=== PATIENT | male | born 1955 | race Caucasian/White ===

== ENCOUNTER → 2017-02-27 | Outpatient (CLI) | payer MEDICARE ==
--- NOTE | 2017-02-27 11:51 | US ---
LOWER EXTREMITY VENOUS INSUFFICIENCY SIDE PERFORMED: Bilateral 1) Color flow is present and patency is documented in the following vessels. Patient has history of bilateral DVT. Patient has some thickening of vessel haro, with some smaller caliber of vessels see n better on the left. EIV Common Femoral Vein Deep Femoral Vein Femoral Vein Popliteal Vein Proximal Calf Veins, not seen Greater Saph Vein Upper Small Saph Vein 2) There is venous reflux noted at the following venous levels: All vessels show reflux excluding G SV bilaterally. Reflux from external iliac veins to the lower visualized popliteal veins. IMPRESSION: 1. No evidence for acute DVT within the bilateral lower extremities imaged from the groin to the knee s. However, there is vessel wall thickening and some veins have small caliber suggesting sequela of c hronic DVT. 2. Venous reflux seen throughout both lower extremities.
--- NOTE | 2017-03-05 16:45 | P.ARTDOP ---
Arterial Doppler LOWER EXTREMITY ARTERIAL DOPPLER: DATE OF SERVICE: 02/27/2017 Reason for study: Right leg pain and right ankle ulceration. Doppler waveforms: Multiphasic bilaterally throughout. Pulse volume recording: []. Pressure gradients: None. Ankle-brachial indices: Greater than 1 bilaterally. Toe pressures: 158 on the right, 142 on the left Impression: Normal study.
== END | disposition home or self-care (01) ==
LOC: RADUSWWP 09:03
PROVIDERS: ATTEND Family Medicine
DX: I87.2 Venous insufficiency (chronic) (peripheral) (principal); I87.8 Other specified disorders of veins; E63.8 Other specified nutritional deficiencies
CPT/HCPCS: 93923; 93970

== ENCOUNTER → 2017-07-02 | Outpatient (CLI) | payer MEDICARE ==
--- NOTE | 2017-07-02 14:02 | US ---
EXAMINATION TYPE: US duplex aorta DATE OF EXAM: 07/02/2017 COMPARISON: US CLINICAL HISTORY: I71.4 Abdominal Aorta Aneurysm; patient stated has controlled HTN EXAM MEASUREMENTS: Abdominal Aorta: Proximal: 3.0cm A/P Mid: 3.5cm Transverse Distal: 3.0cm A/P Bifurcation: 1.1cm Right KARMA Transverse as better seen; 1.4cm Left KARMA Transverse Mild intimal thickening is noted mid and distal. IMPRESSION: 1. Fusiform prominence mid abdominal aorta. Transverse dimension is greater than AP dimension.
== END | disposition home or self-care (01) ==
LOC: RADUSWWP 10:22
PROVIDERS: ATTEND Family Medicine
DX: I71.4 Abdominal aortic aneurysm, without rupture (principal); Z88.8 Allergy status to other drugs, medicaments and biological substances; Z88.5 Allergy status to narcotic agent
CPT/HCPCS: 93979

== ENCOUNTER → 2018-07-08 | Outpatient (CLI) | payer MEDICARE ==
--- NOTE | 2018-07-08 08:28 | US ---
EXAMINATION TYPE: US duplex aorta DATE OF EXAM: 07/08/2018 COMPARISON: 07/02/2017 CLINICAL HISTORY: I71.4 Abdominal Aortic Aneurysm. AAA per patient. HTN- controlled with meds. Nons moker. High cholesterol. Limited visualization due to patient body habitus and overlying bowel gas EXAM MEASUREMENTS: Abdominal Aorta: Proximal: 2.6 x 3.2 cm Mid: 2.2 x 2.5 cm Distal: 1.9 x 2.2 cm Bifurcation: Right- 0.8 x 1.4 cm Left- 0.9 x 1.3 cm Between mid and distal Aorta, ectasia visualized = 2.9 x 3.7 x 4.3 cm IMPRESSION: Slight interval enlargement of the previously seen fusiform mid to distal abdominal aorti c aneurysm now measuring up to 3.7 cm in transverse dimension and previously measuring up to 3.5 cm i n transverse dimension on the exam of 07/02/2017.
== END | disposition home or self-care (01) ==
LOC: RADUSWWP 07:30
PROVIDERS: ATTEND Family Medicine
DX: I71.4 Abdominal aortic aneurysm, without rupture (principal)
CPT/HCPCS: 93979

== ENCOUNTER → 2018-11-03 | Outpatient (CLI) | payer MEDICARE ==
[2018-11-03 09:19] LABS: Basophils % (A) 1 %; Eosinophils # (A) 0.2 k/uL (0-0.7); Eosinophils % (A) 3 %; HCT 43.9 % (39.0-53.0); HGB 14.5 gm/dL (13.0-17.5); Lymphocytes # (A) 1.9 k/uL (1.0-4.8); Lymphocytes % (A) 33 %; MCH 32.5 pg (25.0-35.0); MCHC 33.1 g/dL (31.0-37.0); MCV 98.3 fL (80.0-100.0); Mean Platelet Volume 6.7; Monocytes # (A) 0.3 k/uL (0-1.0); Monocytes % (A) 5 %; Neutrophils # (A) 3.3 k/uL (1.3-7.7); Neutrophils % (A) 57 %; Platelet Count 240 k/uL (150-450); RBC 4.47 m/uL (4.30-5.90); RDW 13.9 % (11.5-15.5); WBC 5.9 k/uL (3.8-10.6)
[2018-11-03 15:58] LABS: ALT 21 U/L (10-49); AST 16 U/L (14-35); African American GFR (CKD) 117.2 (60.0-200.0); Albumin/Globulin Ratio 1.65 (1.60-3.17); Alkaline Phosphatase 62 U/L (41-126); C Reactive Protein <0.4 mg/dL (0.0-0.8); Carbon Dioxide 25.1 mmol/L (21.6-31.8); Chloride 105 mmol/L (96-109); Globulin 2.6 g/dL (1.6-3.3); Glucose 111 mg/dL (70-110); Potassium 4.4 mmol/L (3.5-5.5); Sodium 140 mmol/L (135-145); Total Bilirubin 0.5 mg/dL (0.3-1.2); Total Protein 6.9 g/dL (6.2-8.2)
== END | disposition home or self-care (01) ==
LOC: LABWHC1 08:54
PROVIDERS: ATTEND Family Medicine
DX: I87.311 Chronic venous hypertension (idiopathic) with ulcer of right lower extremity (principal); I87.2 Venous insufficiency (chronic) (peripheral)
CPT/HCPCS: 36415; 80053; 85025; 86140

== ENCOUNTER → 2018-11-05 | Outpatient (CLI) | payer MEDICARE ==
--- NOTE | 2018-11-05 15:11 | US ---
LOWER EXTREMITY VENOUS INSUFFICIENCY SIDE PERFORMED: LOWER EXTREMITY VENOUS INSUFFICIENCY Comparison: Prior ultrasound #30 2017 SIDE PERFORMED: Bilateral 1) Color flow is present and patency is documented in the following vessels. No DVT or SVT is noted . EIV Common Femoral Vein Deep Femoral Vein Femoral Vein Popliteal Vein Greater Saph Vein Upper Small Saph Vein 2) There is venous reflux noted at the following venous levels: Right- EIV, CFV, Deep fem vein, Fem oral vein, popliteal and small saph vein LEFT- EIV, CFV, Femoral vein, Popliteal vein IMPRESSION: No evidence for acute DVT in either lower extremity. Bilateral lower extremity venous ref lux redemonstrated as detailed above.
== END | disposition home or self-care (01) ==
LOC: RADUSWWP 13:30
PROVIDERS: ATTEND Family Medicine
DX: I82.433 Acute embolism and thrombosis of popliteal vein, bilateral (principal); I82.413 Acute embolism and thrombosis of femoral vein, bilateral; I87.2 Venous insufficiency (chronic) (peripheral)
CPT/HCPCS: 93922; 93970

== ENCOUNTER → 2020-01-26 | Outpatient (CLI) | payer MEDICARE ==
--- NOTE | 2020-01-27 09:56 | US ---
LOWER EXTREMITY VENOUS INSUFFICIENCY CLINICAL HISTORY: L97.897 NONPRESSURE CHRONIC ULCER OF OTHER PART OF. Chronic right leg ulcers, HTN, history of DVT right leg, patient on coumadin SIDE PERFORMED: bilateral 1) Color flow is present and patency is documented in the following vessels. No deep venous thrombo sis or superficial venous thrombosis is noted. EIV - assessed only on the left side Common Femoral Vein Deep Femoral Vein Femoral Vein Popliteal Vein Proximal Calf Veins Greater Saph Vein Upper Small Saph Vein 2) There is venous reflux noted at the following venous levels: right CFV, right femoral vein, righ t popliteal vein, left EIV, left GSV, left CFV, left femoral vein, left popliteal vein IMPRESSION: 1. Venous reflux of several veins of the bilateral lower extremities as detailed above. 2. No evidence of deep or superficial venous thrombosis bilaterally.
== END | disposition home or self-care (01) ==
LOC: RADUSWWP 13:44
PROVIDERS: ATTEND Family Medicine
DX: L97.815 Non-pressure chronic ulcer of other part of right lower leg with muscle involvement without evidence of necrosis (principal); I87.311 Chronic venous hypertension (idiopathic) with ulcer of right lower extremity; I87.2 Venous insufficiency (chronic) (peripheral); Z79.01 Long term (current) use of anticoagulants; I10 Essential (primary) hypertension; Z86.718 Personal history of other venous thrombosis and embolism
CPT/HCPCS: 93922; 93970

== ENCOUNTER → 2021-12-26 | Outpatient (CLI) | payer MEDICARE ==
--- NOTE | 2021-12-26 14:58 | US ---
LOWER EXTREMITY VENOUS INSUFFICIENCY CLINICAL HISTORY: I87.311 CHRONIC VENOUS HYPERTENSION WITH ULCER. Non-healing wound right lower leg s young 2004 SIDE PERFORMED: Bilateral Comparison: Prior study January 26, 2020 1) Color flow is present and patency is documented in the following vessels. No DVT or SVT is noted . Common Femoral Vein Deep Femoral Vein Femoral Vein Popliteal Vein Greater Saph Vein Upper Small Saph Vein 2) There is venous reflux noted at the following venous levels: Entire right leg, CFV, femoral vein , popliteal, and lesser saph vein Entire left leg, CFV, GSV, femoral vein, popliteal, and lesser saph vein IMPRESSION: No ultrasound evidence for acute deep or superficial venous thrombosis in either lower ex tremity. Reflux noted as detailed above more prominent in the right lower extremity on current study
--- NOTE | 2021-12-26 15:24 | US ---
EXAMINATION TYPE: US arterial LE single level DATE OF EXAM: 12/26/2021 2:41 PM CLINICAL HISTORY: I87.311 CHRONIC VENOUS HYPERTENSION WITH ULCER. Non-healing wound right lower leg s young 2004. History of hypertension. Doppler Waveforms: Right: Biphasic Left: Biphasic Ankle-Brachial Indices: Right: CNO Left: CNO Toe Brachial Indices: Right: 0.8 Left: 0.8 IMPRESSION: Normal TBI values bilaterally. No significant change from prior.
== END | disposition home or self-care (01) ==
LOC: RADUSWWP 13:37
PROVIDERS: ATTEND Family Medicine
DX: I87.311 Chronic venous hypertension (idiopathic) with ulcer of right lower extremity (principal); I87.2 Venous insufficiency (chronic) (peripheral); I87.323 Chronic venous hypertension (idiopathic) with inflammation of bilateral lower extremity
CPT/HCPCS: 93922; 93970

== ENCOUNTER → 2022-01-01 | Outpatient (CLI) | payer MEDICARE ==
[2022-01-02 01:47] LABS: Basophils # (A) 0.04 X 10*3/uL (0.00-0.10); Basophils % (A) 0.5 %; Eosinophils # (A) 0.22 X 10*3/uL (0.04-0.35); Eosinophils % (A) 2.9 %; HCT 36.8 % (39.6-50.0); HGB 11.5 g/dL (13.0-17.0); Immature Grans, Automated 0.3 %; Lymphocytes # (A) 2.32 X 10*3/uL (0.90-5.00); Lymphocytes % (A) 30.1 %; MCH 30.9 pg (27.0-32.0); MCHC 31.3 g/dL (32.0-37.0); MCV 98.9 fL (80.0-97.0); Monocytes # (A) 0.47 X 10*3/uL (0.20-1.00); Monocytes % (A) 6.1 %; NRBC Per 100 WBC 0 /100 WBCS (0.0-0.0); Neutrophils # (A) 4.63 X 10*3/uL (1.80-7.70); Neutrophils % (A) 60.1 %; Platelet Count 305 X 10*3/uL (140-440); RBC 3.72 X 10*6/uL (4.40-5.60); RDW 14.1 % (11.5-14.5)
[2022-01-02 02:08] LABS: Prealbumin 25.5 mg/dL (18.0-42.0)
[2022-01-02 02:38] LABS: ALT 10 U/L (10-49); AST 21 U/L (14-35); African American GFR (CKD) 122.8 (60.0-200.0); Albumin 3.9 g/dL (3.8-4.9); Albumin/Globulin Ratio 0.97 (1.60-3.17); Alkaline Phosphatase 67 U/L (41-126); BUN/Creat Ratio 25.08 Ratio (12.00-20.00); Blood Urea Nitrogen 14.9 mg/dL (9.0-27.0); Calcium 9.2 mg/dL (8.7-10.3); Carbon Dioxide 26.1 mmol/L (20.0-27.5); Chloride 101 mmol/L (96-109); Glucose 131 mg/dL (70-110); Potassium 4.8 mmol/L (3.5-5.5); Sodium 138 mmol/L (135-145); Total Bilirubin <0.15 mg/dL (0.30-1.20); Total Protein 7.9 g/dL (6.2-8.2)
[2022-01-02 03:35] LABS: Erythrocyte Sedimentation Rate 73 mm/Hr (0-20)
== END | disposition home or self-care (01) ==
LOC: LABWHC1 14:24
PROVIDERS: ATTEND Family Medicine
DX: I87.2 Venous insufficiency (chronic) (peripheral) (principal); I87.323 Chronic venous hypertension (idiopathic) with inflammation of bilateral lower extremity
CPT/HCPCS: 36415; 80053; 84134; 85025; 85652

== ENCOUNTER → 2022-10-15 | Outpatient (CLI) | payer MEDICARE ==
[2022-10-15 15:44] LABS: ALT 19 U/L (10-49); AST 15 U/L (14-35); Albumin 4.1 d/dL (3.8-4.9); Albumin/Globulin Ratio 1.21 Ratio (1.60-3.17); Alkaline Phosphatase 70 U/L (41-126); Blood Urea Nitrogen 12.3 mg/dL (9.0-27.0); Calcium 8.9 mg/dL (8.7-10.3); Carbon Dioxide 22.2 mmol/L (21.6-31.8); Chloride 106 mmol/L (96-109); Chol/HDL Ratio 4.43 Ratio; Globulin 3.4 d/dL (1.6-3.3); Glucose 99 mg/dL (70-110); LDL Cholesterol,Calculated 107.9 mg/dL (0.0-131.0); Sodium 141 mmol/L (135-145); Total Bilirubin 0.3 mg/dL (0.3-1.2); Total Protein 7.5 d/dL (6.2-8.2); VLDL Calculation 15.96 mg/dL (5.00-40.00)
[2022-10-15 16:15] LABS: Basophils # (A) 0.04 X 10*3/uL (0.00-0.10); Basophils % (A) 0.8 %; Eosinophils # (A) 0.07 X 10*3/uL (0.04-0.35); Eosinophils % (A) 1.3 %; HCT 41.3 % (39.6-50.0); HGB 13.6 d/dL (12.0-15.0); Lymphocytes # (A) 1.37 X 10*3/uL (0.90-5.00); Lymphocytes % (A) 26.4 %; MCH 32.2 pg (27.0-32.0); MCHC 32.9 d/dL (32.0-37.0); MCV 97.6 FL (80.0-97.0); Mean Platelet Volume 9.5 FL (9.5-12.2); Monocytes # (A) 0.39 X 10*3/uL (0.20-1.00); Monocytes % (A) 7.5 %; NRBC Per 100 WBC 0 X 10*3/uL (0.00-0.01); Neutrophils % (A) 63.6 %; Platelet Count 269 X 10*3/uL (140-440); RBC 4.23 X 10*6/uL (4.40-5.60); RDW 13.8 % (11.5-14.5); WBC 5.19 X 10*3/uL (4.50-10.00)
[2022-10-15 17:30] LABS: HIV 2 AB Non-Reactive (Non-Reactive); HIV AB P24 Non-Reactive (Non-Reactive); HIV P24 AG Non-Reactive (Non-Reactive)
== END | disposition home or self-care (01) ==
LOC: LABWHC1 10:09
PROVIDERS: ATTEND Family Medicine
DX: Z11.4 Encounter for screening for human immunodeficiency virus [HIV] (principal); Z12.5 Encounter for screening for malignant neoplasm of prostate; E78.5 Hyperlipidemia, unspecified
CPT/HCPCS: 36415; 80053; 80061; 83036; 84153; 84443; 85025; 87390

== ENCOUNTER → 2024-01-07 | Outpatient (CLI) | payer MEDICARE ==
--- NOTE | 2024-01-07 07:56 | US ---
EXAMINATION TYPE: US duplex aorta DATE OF EXAM: 01/07/2024 COMPARISON: US 2019 CLINICAL INDICATION: Male, 68 years old with history of I71.40 AAA WO RUPTURE; AAA in 2019 measured 3 .7 cm. Hx hypertension. TECHNIQUE: Multiple sonographic images of the abdominal aorta are obtained with grayscale and color D oppler imaging. with grayscale and color Doppler imaging FINDINGS: EXAM MEASUREMENTS: Abdominal Aorta: Proximal: Obscured Mid: Obscured Distal: 4.6 x 4.4 cm. Aneurysm seen. Bifurcation: Right Iliac: Not well seen Left Iliac: Not well seen TIME STUDY CLERK NOTES: Aneurysm seen distal aorta: 4.6 x 4.4 cm. IMPRESSION: Progression of abdominal aortic aneurysm. [facility], , 01/07/2024 7:54 AM
== END | disposition home or self-care (01) ==
LOC: RADUSWWP 07:00
PROVIDERS: ATTEND Family Medicine
CPT/HCPCS: 93979

== ENCOUNTER 2024-09-08 15:11 | Day surgery (SDC) | payer MEDICARE ==
[2024-09-07 13:46] VITALS: BMI 39.0
[~2024-09-08 15:11] MED LIST: Pre Op ABX Message 1 EACH MISC MISCELLANE ONE
[2024-09-08] MEDS: IV FLUID CONTINUATION 1,000 ML IV ONE ×2 (15:43→17:53)
[2024-09-08] MEDS: LACTATED RINGERS 1,000 ML BAG IV STA (15:56)
[2024-09-08] MEDS ORDERED: LIDOCAINE 1% INJ 10MG/ML (20 ML MDV) ONE (16:25)
[2024-09-08] MEDS ORDERED: KETAMINE HCL IN 0.9 % NACL 50 MG/5 ML SYRINGE ONE (16:25)
[2024-09-08] MEDS ORDERED: MIDAZOLAM 2 MG/2 ML VIAL ONE (16:25)
[2024-09-08] MEDS ORDERED: PROPOFOL 10 MG/ML 20 ML VIAL IV ONE (16:25)
[2024-09-08] MEDS ORDERED: fentaNYL (PF) 50 MCG/ML 2 ML AMP ONE (16:25)
[2024-09-08] MEDS ORDERED: GLYCOPYRROLATE 0.2 MG/ML 2 ML VIAL ONE (16:25)
[2024-09-08] MEDS: ceFAZolin 2 GM in DEXTROSE 5% IN WATER 50 ML IVPB PRN (16:28)
--- NOTE | 2024-09-08 16:31 | P.HPIHPCON ---
History of Present Illness H&P Date: 09/08/24 Chief Complaint: Venous leg ulcers, left leg CC: Venous Leg Ulcer, left leg Procedure: Debridement with skin graft substitute, left leg Consent for Procedure: I have explained the operation/procedure to the patient, including the risks, benefits, side effects, alternative therapies (including not receiving the proposed treatment or service), the likelihood of the patient achieving his/her goals, and potential recuperation problems for the procedure/sedation/analgesia, as well as any blood products, if indicated. I also explained to the patient the risks, benefits and side effects of the alternatives, as well as the risks related to not receiving the proposed procedure, care, treatment, or services. No changes noted to the H&P post patient's surgical clearance by his PCP. Procedure: Debridement of ulcers with graft application, left leg Past Medical History Past Medical History: Blood Disorder, COPD, Deep Vein Thrombosis (DVT), GERD/Reflux, Hypertension Additional Past Medical History / Comment(s): HX FACTOR V clotting disorder, recurrent venous leg ulcers, CHRONIC BACK PAIN. Current lt leg wound. History of Any Multi-Drug Resistant Organisms: MRSA Date of last positivie culture/infection: 02/02/2015 MDRO Source:: Right Leg Past Surgical History: Heart Catheterization Additional Past Surgical History / Comment(s): BLOOD CLOT REMOVED FROM RT LEG. COLONOSCOPY Past Anesthesia/Blood Transfusion Reactions: No Reported Reaction Smoking Status: Former smoker - Past Family History Mother Family Medical History: Cancer Brother(s) Family Medical History: Cancer Father Family Medical History: Cancer Medications and Allergies Home Medications Medication Instructions Recorded Confirmed Type atenoloL 100 mg PO QAM 01/19/15 09/08/24 History Warfarin [Coumadin] 5 mg PO MOWETH 04/27/15 09/08/24 History HYDROcodone/APAP 10-325MG [[place] 1 tab PO Q4H PRN 08/21/15 09/08/24 History 10-325] Ranitidine HCl [Zantac] 150 mg PO TID PRN 04/04/16 09/08/24 History Warfarin [Coumadin] 2.5 mg PO SUTUFRSA 11/06/16 09/08/24 History Advil(Unknown Dose) 1 dose PO DIRECTED PRN 09/07/24 09/08/24 History Vitamin D(Unknown Dose) 1 dose PO WEEKLY 09/07/24 09/08/24 History Allergies Allergy/AdvReac Type Severity Reaction Status Date / Time codeine AdvReac Nausea & Verified 09/08/24 15:28 Vomiting ibuprofen [From Motrin] AdvReac Nausea & Verified 09/08/24 15:28 Vomiting Surgical - Exam Vital Signs Temp Pulse Resp BP Pulse Ox 98.2 F 63 18 140/68 97 09/08/24 15:28 09/08/24 15:28 09/08/24 15:28 09/08/24 15:28 09/08/24 15:28
[2024-09-08] MEDS: LIDOCAINE 1% INJ 10MG/ML (20 ML MDV) SQ ONE ×2 (16:49)
[2024-09-08 17:34] VITALS: TEMP 97.8
[2024-09-08] MEDS: HYDROmorphone 1 MG/ML 1 ML SYRINGE IVP STA (17:35)
[2024-09-08 18:30] VITALS: BP 162/78; PULSE 60; RESP 16
--- NOTE | 2024-09-10 16:10 | P.PCN ---
Date of Procedure: 09/08/24 Preoperative Diagnosis: Venous stasis ulcers, left leg Postoperative Diagnosis: Venous stasis ulcers, left leg Procedure(s) Performed: Debridement of venous stasis ulcers with graft application, left leg Anesthesia: MAC, local (20cc of 1% lidocaine plain) Surgeon: Kinjal Mcclain Estimated Blood Loss (ml): 5 Pathology: none sent Condition: stable Disposition: PACU Indications for Procedure: Venous stasis ulcers to left leg with significant slough and biofilm present Operative Findings: Consistent with diagnosis; significant skin slough and biofilm noted to the wound beds of the ulcers to the left leg Description of Procedure: The patient was seen in the pre-op hold area. Consent was signed, correct surgical site was marked, and all questions and concerns related to the proposed procedure were discussed in detail with the patient and her significant other. The patient was then brought to the OR. The patient was transferred to the surgical bed for the procedure in supine position. The patient's left leg was then prepped with betadine to the knee and draped with sterile drapes to the level of the knee. Next, a time-out was taken to ensure proper laterality and procedure. Next, the ulcerated areas of the left leg were infiltrated with 20cc of 1% lidocaine plain in a field block fashion. After confirming anesthesia, attention was directed to the lateral aspect of the left leg. The wound beds of the venous stasis ulcers were debrided using a dermal curette to remove any non- viable and necrotic tissues, including slough, biofilm, necrotic and fibrotic tissues to underlying, bleeding healthy granular tissues. Next, the venous stasis ulcers to the medial aspect of the left leg were debrided using a dermal curette in a similar fashion. Then, attention was directed to the posterior aspect of the left leg, and the venous stasis ulcers were debrided with a dermal curette in similar fashion. No sinus tracts or tunneling was noted. The wound beds did not probe to bone. The area was then cleaned with a sterile saline solution soaked lap towel. The wound measurements were as follows: lateral left leg from superior to inferior, 4cm x 2.5cm x0.3cm, 5cm x 4.5cm x 0.3cm, 4cm x 2.5cm x 0.3cm, 4cm x 1.5cm x 0.3cm, and 9cm x 4cm x 0.3cm; posterior left leg 14cm x 8cm x 0.4cm; and medial left leg 2.5 cm x 1.5cm x 0.3cm, 9cm x 4 cm x 0.3cm. Then, attention was directed back to the venous stasis ulcers to the med ial and lateral aspects of the left leg. Three 4cm x 4.5cm fenestrated EpiFix grafts were cut to the appropriate size and placed directly to the wound beds of the wounds to the medial and lateral left leg. Next, attention was directed to the deepest wound noted to the posterior of the left leg. One Epicord 3cm x 5cm graft was soaked in saline for rehydration and then placed in the deepest portion of the venous stasis ulcer on the posterior aspect of the left leg. Next, two AmnioFix 7cm x 6cm grafts were cut to the appropriate size and placed directly on the wound beds to the remaining shallow wounds on the posterior aspect of the left leg. The total debrided wound area measured 236.25 square centimeters post-debridement. All counts were noted correct x2. The wound was then dressed with Adaptic dressing, 4x4 gauze, ABD pads, Kerlix rolls, and an SHAUN bandage. The patient was then transferred to PACU in stable condition. Plan - Discharge Summary Discharge Rx Participant: Yes New Discharge Prescriptions: No Action atenoloL 100 mg PO QAM Warfarin [Coumadin] 5 mg PO MOWETH HYDROcodone/APAP 10-325MG [[place] 10-325] 1 tab PO Q4H PRN PRN Reason: Pain Ranitidine HCl [Zantac] 150 mg PO TID PRN PRN Reason: acid reflux Warfarin [Coumadin] 2.5 mg PO SUTUFRSA Vitamin D(Unknown Dose) 1 dose PO WEEKLY Advil(Unknown Dose) 1 dose PO DIRECTED PRN PRN Reason: Pain Discharge Medication List atenoloL 100 mg PO QAM 01/19/15 [History] Warfarin [Coumadin] 5 mg PO MOWETH 04/27/15 [History] HYDROcodone/APAP 10-325MG [[place] 10-325] 1 tab PO Q4H PRN 08/21/15 [History] Ranitidine HCl [Zantac] 150 mg PO TID PRN 04/04/16 [History] Warfarin [Coumadin] 2.5 mg PO SUTUFRSA 11/06/16 [History] Advil(Unknown Dose) 1 dose PO DIRECTED PRN 09/07/24 [History] Vitamin D(Unknown Dose) 1 dose PO WEEKLY 09/07/24 [History] Follow up Appointment(s)/Referral(s): Kinjal Mcclain DPM [STAFF PHYSICIAN] - 09/10/24 10:00 am Patient Instructions/Handouts: *Surgery [facility] - (Anesthesia) Discharge Instructions Outpatient Surgery, Debridement (DC), Skin Grafting (DC) Activity/Diet/Wound Care/Special Instructions: Keep dressings clean, dry, and intact. Activity as tolerated. Take your previously prescribed pain medication as needed for pain. Elevate the left leg on 1-2 pillows to minimize pain and swelling. Discharge Disposition: HOME SELF-CARE
--- NOTE | 2024-09-10 16:24 | P.OP ---
Date of Procedure: 09/08/24 Preoperative Diagnosis: Venous stasis ulcers, left leg Postoperative Diagnosis: Venous stasis ulcers, left leg Procedure(s) Performed: Debridement of venous stasis ulcers with graft application, left leg Implants: EpiFix graft 4cm x 4.5cm x2; EpiCord graft 3cm x 5cm; AmnioFix graft 7cm x 6cm. Anesthesia: MAC, local (20cc of 1% lidocaine plain) Surgeon: Kinjal Mcclain Estimated Blood Loss (ml): 5 Pathology: none sent Condition: stable Disposition: PACU Indications for Procedure: Venous stasis ulcers to left leg with significant slough and biofilm present Operative Findings: Consistent with diagnosis; significant skin slough and biofilm noted to the wound beds of the ulcers to the left leg Description of Procedure: The patient was seen in the pre-op hold area. Consent was signed, correct surgi nica site was marked, and all questions and concerns related to the proposed procedure were discussed in detail with the patient and her significant other. The patient was then brought to the OR. The patient was transferred to the surgical bed for the procedure in supine position. The patient's left leg was then prepped with betadine to the knee and draped with sterile drapes to the level of the knee. Next, a time-out was taken to ensure proper laterality and procedure. Next, the ulcerated areas of the left leg were infiltrated with 20cc of 1% lidocaine plain in a field block fashion. After confirming anesthesia, attention was directed to the lateral aspect of the left leg. The wound beds of the venous stasis ulcers were debrided using a dermal curette to remove any non- viable and necrotic tissues, including slough, biofilm, necrotic and fibrotic tissues to underlying, bleeding healthy granular tissues. Next, the venous stasis ulcers to the medial aspect of the left leg were debrided using a dermal curette in a similar fashion. Then, attention was directed to the posterior aspect of the left leg, and the venous stasis ulcers were debrided with a dermal curette in similar fashion. No sinus tracts or tunneling was noted. The wound beds did not probe to bone. The area was then cleaned with a sterile saline solution soaked lap towel. The wound measurements were as follows: lateral left leg from superior to inferior, 4cm x 2.5cm x0.3cm, 5cm x 4.5cm x 0.3cm, 4cm x 2.5cm x 0.3cm, 4cm x 1.5cm x 0.3cm, and 9cm x 4cm x 0.3cm; posterior left leg 14cm x 8cm x 0.4cm; and medial left leg 2.5 cm x 1.5cm x 0.3cm, 9cm x 4 cm x 0.3cm. Then, attention was directed back to the venous stasis ulcers to the medial and lateral aspects of the left leg. Two 4cm x 4.5cm fenestrated EpiFix grafts were cut to the appropriate size and placed directly to the wound beds of the wounds to the medial and lateral left leg. Next, attention was directed to the deepest wound noted to the posterior of the left leg. One Epicord 3cm x 5cm graft was soaked in saline for rehydration and then placed in the deepest portion of the venous stasis ulcer on the posterior aspect of the left leg. Next, one AmnioFix 7cm x 6cm graft was cut to the appropriate sizes and placed directly on the wound beds to the remaining shallow wounds on the posterior aspect of the left leg. The total debrided wound area measured 236.25 square centimeters post-debridement. All counts were noted correct x2. The wound was then dressed with Adaptic dressing, 4x4 gauze, ABD pads, Kerlix rolls, and an SHAUN bandage. The patient was then transferred to PACU in stable condition.
== END 2024-09-08 18:44 | disposition home or self-care (01) ==
LOC: OR 15:11
PROVIDERS: ATTEND Student in an Organized Health Care Education/Training Program
DX: L97.822 Non-pressure chronic ulcer of other part of left lower leg with fat layer exposed (principal); I87.2 Venous insufficiency (chronic) (peripheral); D68.2 Hereditary deficiency of other clotting factors; J44.9 Chronic obstructive pulmonary disease, unspecified; I10 Essential (primary) hypertension; Z86.718 Personal history of other venous thrombosis and embolism; Z87.891 Personal history of nicotine dependence; Z79.01 Long term (current) use of anticoagulants; Z88.5 Allergy status to narcotic agent; Z88.6 Allergy status to analgesic agent
CPT/HCPCS: 15271; 15002; 15003; Q4186; Q4187; J2250; J0690; J2003; J3010; J1171; J2704; J1596

== ENCOUNTER 2024-10-08 14:53 | Inpatient (IN) | payer MEDICARE ==
[2024-10-08 16:23] LABS: Basophils # (A) 0.04 10*3/uL (0.00-0.10); Basophils % (A) 0.4 %; Eosinophils # (A) 0.10 10*3/uL (0.04-0.35); Eosinophils % (A) 1.1 %; HCT 39.2 % (39.6-50.0); HGB 13.3 g/dL (13.0-17.0); Lymphocytes # (A) 1.87 10*3/uL (0.90-5.00); Lymphocytes % (A) 19.7 %; MCH 30.6 pg (27.0-32.0); MCHC 33.9 g/dL (32.0-37.0); MCV 90.1 fL (80.0-97.0); Monocytes # (A) 0.52 10*3/uL (0.20-1.00); Monocytes % (A) 5.5 %; Neutrophils # (A) 6.94 10*3/uL (1.80-7.70); Neutrophils % (A) 73.0 %; Platelet Count 314 10*3/uL (140-440); RBC 4.35 10*6/uL (4.40-5.60); RDW 14.9 % (11.5-14.5); WBC 9.50 10*3/uL (4.50-10.00)
[2024-10-08 16:37] LABS: ALT 54 U/L (4-49); African American GFR (CKD) >90 (>60 ml/min/1.73 sqM); Albumin 4.3 g/dL (3.5-5.0); Anion Gap 16 mmol/L; Blood Urea Nitrogen 19 mg/dL (9-20); Calcium 9.3 mg/dL (8.4-10.2); Carbon Dioxide 14 mmol/L (22-30); Chloride 111 mmol/L (98-107); Glucose 119 mg/dL (74-99); Non-African American GFR(CKD) >90 (>60 ml/min/1.73 sqM); Sodium 141 mmol/L (137-145); Total Protein 8.4 g/dL (6.3-8.2)
[2024-10-08 16:41] LABS: AST 55 U/L (17-59); Alkaline Phosphatase 76 U/L (38-126); Potassium 3.9 mmol/L (3.5-5.1)
[2024-10-08] MEDS ORDERED: VANCOMYCIN IV PER PHARMACY 1 EACH MISC MISCELLANE PRN (16:43)
[2024-10-08] MEDS: HYDROmorphone 0.5 MG/0.5 ML SYRINGE IVP STA (17:02)
[2024-10-08] MEDS: VANCOMYCIN 1,750 MG in SODIUM CHLORIDE 0.9% 500 ML 500 ML IVPB ONE (18:08)
[2024-10-08] MEDS: HYDROcodone/APAP 10-325MG 1 EACH TAB PO PRN (18:29)
[2024-10-08] MEDS: SODIUM CHLORIDE 0.9% 1,000 ML IV SCH (18:29)
[2024-10-08] MEDS ORDERED: ACETAMINOPHEN TAB 325 MG TAB PO PRN (18:37)
[2024-10-08] MEDS ORDERED: NALOXONE 0.4 MG/ML 1 ML VIAL IV PRN (18:37)
--- NOTE | 2024-10-08 18:41 | ED ---
General Adult HPI - General Chief complaint: Wound/Laceration Stated complaint: L Leg issue Time Seen by Provider: 10/08/24 15:43 Source: patient, RN notes reviewed, old records reviewed Mode of arrival: ambulatory Limitations: no limitations - History of Present Illness Initial comments: 69-year-old male presenting with pain and swelling to the left leg. Patient was seen by his children's program coordinator today and sent to the emergency department for IV antibiotics. Patient has a history of nonhealing wounds to the left leg. Patient has been on oral antibiotics without improvement and patient states that his symptoms are worsening. No fever. - Related Data Home Medications Medication Instructions Recorded Confirmed atenoloL 100 mg PO QAM 01/19/15 09/08/24 Warfarin [Coumadin] 5 mg PO MOWETH 04/27/15 09/08/24 HYDROcodone/APAP 10-325MG [[place] 1 tab PO Q4H PRN 08/21/15 09/08/24 10-325] Ranitidine HCl [Zantac] 150 mg PO TID PRN 04/04/16 09/08/24 Warfarin [Coumadin] 2.5 mg PO SUTUFRSA 11/06/16 09/08/24 Advil(Unknown Dose) 1 dose PO DIRECTED PRN 09/07/24 09/08/24 Vitamin D(Unknown Dose) 1 dose PO WEEKLY 09/07/24 09/08/24 Allergies Allergy/AdvReac Type Severity Reaction Status Date / Time codeine AdvReac Nausea & Verified 10/08/24 15:03 Vomiting ibuprofen [From Motrin] AdvReac Nausea & Verified 10/08/24 15:03 Vomiting Review of Systems ROS Statement: Those systems with pertinent positive or pertinent negative responses have been documented in the HPI. ROS Other: All systems not noted in ROS Statement are negative. Past Medical History Past Medical History: Blood Disorder, COPD, Deep Vein Thrombosis (DVT), GERD/Reflux, Hypertension Additional Past Medical History / Comment(s): HX FACTOR V clotting disorder, recurrent venous leg ulcers, CHRONIC BACK PAIN. Current lt leg wound. History of Any Multi-Drug Resistant Organisms: MRSA Date of last positivie culture/infection: 02/02/2015 MDRO Source:: Right Leg Past Surgical History: Heart Catheterization Additional Past Surgical History / Comment(s): BLOOD CLOT REMOVED FROM RT LEG. COLONOSCOPY Past Anesthesia/Blood Transfusion Reactions: No Reported Reaction Past Psychological History: No Psychological Hx Reported Smoking Status: Former smoker Past Alcohol Use History: Rare Past Drug Use History: None Reported - Past Family History Mother Family Medical History: Cancer Brother(s) Family Medical History: Cancer Father Family Medical History: Cancer General Exam Limitations: no limitations General appearance: alert, in no apparent distress Head exam: Present: atraumatic, normocephalic Eye exam: Present: normal appearance, PERRL ENT exam: Present: normal exam Respiratory exam: Present: normal lung sounds bilaterally. Absent: respiratory distress, wheezes Cardiovascular Exam: Present: regular rate, normal rhythm GI/Abdominal exam: Present: soft. Absent: distended, tenderness Extremities exam: Present: other (Swelling, erythema and multiple areas of ulceration on the left leg.) Neurological exam: Present: alert, oriented X3 Course Vital Signs 10/08/24 10/08/24 10/08/24 14:59 16:54 18:20 Temperature 99.7 F H 97.8 F Pulse Rate 97 76 74 Respiratory 20 18 18 Rate Blood Pressure 180/76 159/83 178/91 O2 Sat by Pulse 95 98 98 Oximetry Medical Decision Making - Medical Decision Making Was pt. sent in by a medical professional or institution (AMANDA Ortega, FUSING MACHINE OPERATOR, urgent care, hospital, or fdc...) When possible be specific @ -No Did you speak to anyone other than the patient for history (EMS, parent, family, police, friend...)? What history was obtained from this source @ -No Did you review nursing and triage notes (agree or disagree)? Why? @ -I reviewed and agree with nursing and triage notes Were old charts reviewed (outside hosp., previous admission, EMS record, old EKG, old radiological studies, urgent care reports/EKG's, fdc records)? Report findings @ -No old charts were reviewed Differential Diagnosis cellulitis, diabetic ulcer, necrotizing fasciitis EKG interpreted by me (3pts min.). @ -As above X-rays interpreted by me (1pt min.). @ -None done CT interpreted by me (1pt min.). @ -None done U/S interpreted by me (1pt. min.). @ -None done What testing was considered but not performed or refused? (CT, X-rays, U/S, labs)? Why? @ -None What meds were considered but not given or refused? Why? @ -None Did you discuss the management of the patient with other professionals (professionals i.e. , PA, FUSING MACHINE OPERATOR, lab, RT, psych nurse, social media specialist, fur mixer operator, teacher, photographic intelligence officer, classification case manager)? Give summary Alvin covering for [facility] Was smoking cessation discussed for >3mins.? @ -No Was critical care preformed (if so, how long)? @ -No Were there social determinants of health that impacted care today? How? (Homelessness, low income, unemployed, alcoholism, drug addiction, transportation, low edu. Level, literacy, decrease access to med. care, fpc, rehab)? @ -No Was there de-escalation of care discussed even if they declined (Discuss DNR or withdrawal of care, Hospice)? DNR status @ -No What co-morbidities impacted this encounter? (DM, HTN, Smoking, COPD, CAD, Cancer, CVA, ARF, Chemo, Hep., AIDS, mental health diagnosis, sleep apnea, morbid obesity)? @ -None Was patient admitted / discharged? Hospital course, mention meds given and route, prescriptions, significant lab abnormalities, going to OR and other pertinent info. @ -[69-year-old male presenting with pain and swelling in the left leg, no improvement on oral antibiotics. Sent in by his children's program coordinator for IV antibiotics. Labs are obtained in the emergency department, normal white blood cell count, normal lactic acid. Patient started on IV antibiotics in the emergency department. Admitted to [facility]. Undiagnosed new problem with uncertain prognosis? @ -No Drug Therapy requiring intensive monitoring for toxicity (Heparin, Nitro, Insulin, Cardizem)? @ -No Were any procedures done? @ -No Diagnosis/symptom? @ -Cellulitis, nonhealing wound left leg Acute, or Chronic, or Acute on Chronic? @ -Acute on chronic Uncomplicated (without systemic symptoms) or Complicated (systemic symptoms)? @ -Default Side effects of treatment? @ -No Exacerbation, Progression, or Severe Exacerbation? @ -No Poses a threat to life or bodily function? How? (Chest pain, [place], NH, pneumonia, PE, COPD, DKA, ARF, appy, cholecystitis, CVA, Diverticulitis, Homicidal, Suicidal, threat to staff... and all critical care pts) @Yes, sepsis - Lab Data Result diagrams: 10/08/24 16:14 10/08/24 16:14 Lab Results 10/08/24 10/08/24 10/08/24 Range/Units 16:14 16:14 16:14 WBC 9.50 (4.50-10.00) 10*3/uL RBC 4.35 L (4.40-5.60) 10*6/uL Hgb 13.3 (13.0-17.0) g/dL Hct 39.2 L (39.6-50.0) % MCV 90.1 (80.0-97.0) fL MCH 30.6 (27.0-32.0) pg MCHC 33.9 (32.0-37.0) g/dL Plt Count 314 (140-440) 10*3/uL MPV 9.0 L (9.5-12.2) fL Immature Gran % (Auto) 0.3 % Neutrophils % 73.0 % Lymphocytes % 19.7 % Monocytes % 5.5 % Eosinophils % 1.1 % Basophils % 0.4 % Immature Gran # 0.03 (0.00-0.04) 10*3/uL Neutrophils # 6.94 (1.80-7.70) 10*3/uL Lymphocytes # 1.87 (0.90-5.00) 10*3/uL Monocytes # 0.52 (0.20-1.00) 10*3/uL Eosinophils # 0.10 (0.04-0.35) 10*3/uL Basophils # 0.04 (0.00-0.10) 10*3/uL Sodium 141 (137-145) mmol/L Potassium 3.9 (3.5-5.1) mmol/L Chloride 111 H (98-107) mmol/L Carbon Dioxide 14 L (22-30) mmol/L Anion Gap 16 mmol/L BUN 19 (9-20) mg/dL Creatinine 0.65 L (0.66-1.25) mg/dL Est GFR (CKD-EPI)AfAm >90 (>60 ml/min/1.73 sqM) Est GFR (CKD-EPI)NonAf >90 (>60 ml/min/1.73 sqM) Glucose 119 H (74-99) mg/dL Plasma Lactic Acid Ramesh 1.2 (0.7-2.0) mmol/L Calcium 9.3 (8.4-10.2) mg/dL Total Bilirubin 0.6 (0.2-1.3) mg/dL AST 55 (17-59) U/L ALT 54 H (4-49) U/L Alkaline Phosphatase 76 (38-126) U/L Total Protein 8.4 H (6.3-8.2) g/dL Albumin 4.3 (3.5-5.0) g/dL Disposition Clinical Impression: Venous insufficiency, Cellulitis Disposition: ADMITTED IP TO THIS HOSP Condition: Stable Is patient prescribed a controlled substance at d/c from ED?: No Referrals: Alvin Emerson MD [Primary Care Provider] - 1-2 days Time of Disposition: 18:41
[2024-10-08 19:07] LABS: INR 1.1 (<1.2); Prothrombin Time 11.6 sec (10.0-12.5)
[2024-10-08 19:10] LABS: Partial Thromboplastin Time 19.4 sec (22.0-30.0)
[2024-10-09] MEDS: HYDROmorphone 0.5 MG/0.5 ML SYRINGE IVP PRN (02:06)
[2024-10-09 04:45] LABS: African American GFR (CKD) >90 (>60 ml/min/1.73 sqM); Non-African American GFR(CKD) >90 (>60 ml/min/1.73 sqM)
[2024-10-09] MEDS: VANCOMYCIN 1,750 MG in SODIUM CHLORIDE 0.9% 500 ML 500 ML IVPB SCH (06:28)
--- NOTE | 2024-10-09 13:39 | US ---
EXAMINATION TYPE: US venous doppler duplex LE LT DATE OF EXAM: 10/09/2024 1:29 PM COMPARISON: US 2021 CLINICAL INDICATION: Male, 69 years old with history of swelling; Swelling. hx of DVT. Patient is on warfarin. TECHNIQUE: The lower extremity deep venous system is examined utilizing real time linear array sonog jono with graded compression, color doppler sonography, and spectral doppler. SIDE PERFORMED: Left FINDINGS: VESSELS IMAGED: Common Femoral Vein Deep Femoral Vein Greater Saphenous Vein * Femoral Vein Popliteal Vein Small Saphenous Vein * Proximal Calf Veins (* superficial vessels) Left Leg: Internal echoes seen in popliteal vein into the prox calf veins. The popliteal vein does not compress. Some partial compression seen at mid and distal popliteal vein. Lack of color flow/co ken defect noted at this level. PTVS and peroneal veins were not seen. IMPRESSION: Findings consistent with acute DVT in the popliteal vein in the proximal calf veins. [facility], Workstation: SENG 10/09/2024 1:37 PM
--- NOTE | 2024-10-09 14:27 | P.HPIM ---
History of Present Illness H&P Date: 10/09/24 History of present illness; patient is 69-year-old gentleman past medical history significant for DVT, chronic wounds of left lower extremity presented the ER because of worsening left lower extremity wound. Patient history of nonhealing wound of left leg, is following up outpatient by ethnic origins teacher. Patient stated that he was on oral antibiotics but his wounds were not healing. [employer] Supervisor evaluated him yesterday and recommended patient needs to come to the hospital for further evaluation and treatment. Patient denies any fever chills. There is no complaint of shortness of breath. Patient denies any palpitation. There is no complaint of orthopnea or PND. Denies any nausea, vomiting abdomi nal pain. Patient denies any complaint of dizziness. There is no complaint of headache. Because of left lower extremity wound, patient came to the ER Patient admitted to internal medicine service REVIEW OF SYSTEMS: CONSTITUTIONAL: No fever, no malaise, no fatigue. HEENT: No recent visual problems or hearing problems. Denied any sore throat. CARDIOVASCULAR: No chest pain, orthopnea, PND, no palpitations, no syncope. PULMONARY: No shortness of breath, no cough, no hemoptysis. GASTROINTESTINAL: No diarrhea, no nausea, no vomiting, no abdominal pain. NEUROLOGICAL: No headaches, no weakness, no numbness. HEMATOLOGICAL: Denies any bleeding or petechiae. GENITOURINARY: Denies any burning micturition, frequency, or urgency. MUSCULOSKELETAL/RHEUMATOLOGICAL: Denies any joint pain, swelling, or any muscle pain. ENDOCRINE: Denies any polyuria or polydipsia. The rest of the 14-point review of systems is negative. PHYSICAL EXAMINATION: GENERAL: The patient is alert and oriented x3, not in any acute distress. Well developed, well nourished. HEENT: Pupils are round and equally reacting to light. EOMI. No scleral icterus. No conjunctival pallor. Normocephalic, atraumatic. No pharyngeal erythema. No thyromegaly. CARDIOVASCULAR: S1 and S2 present. No murmurs, rubs, or gallops. PULMONARY: Chest is clear to auscultation, no wheezing or crackles. ABDOMEN: Soft, nontender, nondistended, normoactive bowel sounds. No palpable organomegaly. MUSCULOSKELETAL: Left lower extremity wound EXTREMITIES: No cyanosis, clubbing, or pedal edema. NEUROLOGICAL: Gross neurological examination did not reveal any focal deficits. SKIN: No rashes. Assessment and plan Left lower extremity cellulitis Chronic wounds of left lower extremity History of DVT Monitor vital signs Monitor CBC Monitor CMP Ordered CRP, ordered ESR Order Pro-Rich Order blood cultures Start IV Rocephin and vancomycin Ordered ultrasound lower extremity Consult ID Consult podiatry Labs and medication were reviewed.. Continue same treatment. Continue with symptomatic treatment. Resume home medication. Monitor labs and vitals. DVT and GI prophylaxis. Further recommendations as per clinical course of the patient Dictation was produced using [employer] dictation software. please excuse any grammatical, word or spelling errors. Past Medical History Past Medical History: Blood Disorder, COPD, Deep Vein Thrombosis (DVT), GERD/Reflux, Hypertension Additional Past Medical History / Comment(s): HX FACTOR V clotting disorder, recurrent venous leg ulcers, CHRONIC BACK PAIN. Current lt leg wound. History of Any Multi-Drug Resistant Organisms: MRSA Date of last positivie culture/infection: 02/02/2015 MDRO Source:: Right Leg Past Surgical History: Heart Catheterization Additional Past Surgical History / Comment(s): BLOOD CLOT REMOVED FROM RT LEG. COLONOSCOPY Past Anesthesia/Blood Transfusion Reactions: No Reported Reaction Past Psychological History: No Psychological Hx Reported Smoking Status: Former smoker Past Alcohol Use History: Rare Additional Past Alcohol Use History / Comment(s): started smoking at age 15, 2ppd, quit at age 17. Past Drug Use History: None Reported - Past Family History Mother Family Medical History: Cancer Brother(s) Family Medical History: Cancer Father Family Medical History: Cancer Medications and Allergies Home Medications Medication Instructions Recorded Confirmed Type atenoloL 100 mg PO DAILY 01/19/15 10/08/24 History HYDROcodone/APAP 10-325MG [[place] 1 tab PO 5XD 08/21/15 10/08/24 History 10-325] Ciprofloxacin HCl [Cipro] 500 mg PO Q12HR 10/08/24 10/08/24 History Ergocalciferol (Vitamin D2) 1,250 mcg PO MO 10/08/24 10/08/24 History [Drisdol (GEQ) 1,250 MCG (50,000 IU)] Gabapentin [Neurontin] 800 mg PO BID PRN 10/08/24 10/08/24 History Allergies Allergy/AdvReac Type Severity Reaction Status Date / Time codeine AdvReac Nausea & Verified 10/08/24 19:46 Vomiting ibuprofen [From Motrin] AdvReac Nausea & Verified 10/08/24 19:46 Vomiting Physical Exam Vitals: Vital Signs Temp Pulse Pulse Resp BP BP Pulse Ox 10/09/24 07:00 97.1 F L 76 10 L 10/09/24 01:14 110 H 20 10/09/24 00:01 98.1 F 73 20 155/87 97 10/08/24 23:22 110 H 20 10/08/24 23:18 97.7 F 110 H 20 178/103 97 10/08/24 22:40 98.1 F 70 18 173/76 97 10/08/24 18:20 97.8 F 74 18 178/91 98 10/08/24 16:54 76 18 159/83 98 10/08/24 14:59 99.7 F H 97 20 180/76 95 Intake and Output 10/08/24 10/09/24 10/09/24 22:59 06:59 14:59 Output Total 500 450 Balance -500 -450 Output: Urine 500 450 Other: Voiding Method Urinal Urinal Weight 116.573 kg Results CBC & Chem 7: 10/08/24 16:14 10/09/24 03:54 Labs: Abnormal Lab Results - Last 24 Hours (Table) 10/08/24 10/08/24 10/08/24 Range/Units 16:14 16:14 18:32 RBC 4.35 L (4.40-5.60) 10*6/uL Hct 39.2 L (39.6-50.0) % MPV 9.0 L (9.5-12.2) fL APTT 19.4 L (22.0-30.0) sec Chloride 111 H (98-107) mmol/L Carbon Dioxide 14 L (22-30) mmol/L Creatinine 0.65 L (0.66-1.25) mg/dL Glucose 119 H (74-99) mg/dL ALT 54 H (4-49) U/L Total Protein 8.4 H (6.3-8.2) g/dL 10/09/24 Range/Units 03:54 RBC (4.40-5.60) 10*6/uL Hct (39.6-50.0) % MPV (9.5-12.2) fL APTT (22.0-30.0) sec Chloride (98-107) mmol/L Carbon Dioxide (22-30) mmol/L Creatinine 0.59 L (0.66-1.25) mg/dL Glucose (74-99) mg/dL ALT (4-49) U/L Total Protein (6.3-8.2) g/dL Thrombosis Risk Factor Assmnt - Choose All That Apply Any of the Below Risk Factors Present?: Yes Each Factor Represents 1 point: Abnormal pulmonary function (COPD), Obesity (BMI >25) Other Risk Factors: Yes Each Risk Factor Represents 2 Points: Age 61-74 years Other congenital or acquired thrombophilia - If yes, enter type in comment: No Thrombosis Risk Factor Assessment Total Risk Factor Score: 4 Thrombosis Risk Factor Assessment Level: Moderate Risk
[2024-10-09] MEDS: PIPERACILLIN-TAZOBACTAM 3.375 GM in SODIUM CHLORIDE 0.9% 100 ML IVPB SCH (17:40)
[2024-10-09] MEDS: SODIUM HYPOCHLORITE 0.25% 480 ML BOT MISCELLANE SCH (17:41)
--- NOTE | 2024-10-09 18:45 | P.CONS ---
History of Present Illness - Reason for Consult Consult date: 10/09/24 Cellulitis to LLE; venous stasis ulcers to LLE - Chief Complaint Cellulitis to LLE; venous stasis ulcers to LLE - History of Present Illness Patient is a pleasant 69 year old male who is being followed by this provider outpatient for venous stasis ulcers to the left leg. Patient was seen by this provider in clinic on 10/08/2024 for venous stasis ulcers to the left leg. The patient complained that the leg wounds were slightly more painful and burning more than usual and appeared diaphoretic; he denied any NVFC, CP, SOB, of calf pain. Upon PE, the wounds were malodorous with surrounding erythema and significant biofilm present. Patient also had a new superficial thickness wound to the right medial malleolus with surrounding erythema and malodor. The patient was instructed to go to the [facility] ED to be admitted for IV antibiotics due to concerns of cellulitis. Patient went to the ED and was admitted for IV antibiotics. After admission, patient had venous Doppler of the LLE which showed a blood clot in the proximal popliteal vein. Patient currently denies any NVFC, SOB, CP, or calf tenderness. He relates mild pain to the LLE wounds, but states that the pain is well controlled with the current pain medication regimen. He has no other pedal complaints at t his time. Review of Systems Constitutional: Reports chronic pain (Chronic pain secondary to the venous stasis ulcers to LLE), Denies chills, Denies fever, Denies malaise, Denies sweats, Denies weakness Cardiovascular: Denies chest pain, Denies claudication, Denies palpitations, Denies shortness of breath Respiratory: Denies cough, Denies dyspnea, Denies pain, Denies wheezing Gastrointestinal: Denies abdominal pain, Denies constipation, Denies diarrhea, Denies heartburn, Denies nausea, Denies vomiting Musculoskeletal: Denies leg numbness/tingling, Denies muscle weakness, Denies myalgias Musculoskeletal: bilateral: as per HPI Integumentary: Reports as per HPI, Reports darkening of skin, Reports foot/leg ulcers (Venous stasis ulcers to left leg) Neurological: Denies balance difficulties, Denies change in mentation, Denies double vision, Denies head injury, Denies numbness, Denies tingling, Denies weakness, Denies visual changes Past Medical History Past Medical History: Blood Disorder, COPD, Deep Vein Thrombosis (DVT), GERD/Reflux, Hypertension Additional Past Medical History / Comment(s): HX FACTOR V clotting disorder, recurrent venous leg ulcers, CHRONIC BACK PAIN. Current lt leg wound. History of Any Multi-Drug Resistant Organisms: MRSA Year Discovered:: 02/02/2015 MDRO Source:: Right Leg Past Surgical History: Heart Catheterization Additional Past Surgical History / Comment(s): BLOOD CLOT REMOVED FROM RT LEG. COLONOSCOPY Past Anesthesia/Blood Transfusion Reactions: No Reported Reaction Past Psychological History: No Psychological Hx Reported Smoking Status: Former smoker Past Alcohol Use History: Rare Additional Past Alcohol Use History / Comment(s): started smoking at age 15, 2ppd, quit at age 17. Past Drug Use History: None Reported - Past Family History Mother Family Medical History: Cancer Brother(s) Family Medical History: Cancer Father Family Medical History: Cancer Medications and Allergies Home Medications Medication Instructions Recorded Confirmed Type atenoloL 100 mg PO DAILY 01/19/15 10/08/24 History HYDROcodone/APAP 10-325MG [[place] 1 tab PO 5XD 08/21/15 10/08/24 History 10-325] Ciprofloxacin HCl [Cipro] 500 mg PO Q12HR 10/08/24 10/08/24 History Ergocalciferol (Vitamin D2) 1,250 mcg PO MO 10/08/24 10/08/24 History [Drisdol (GEQ) 1,250 MCG (50,000 IU)] Gabapentin [Neurontin] 800 mg PO BID PRN 10/08/24 10/08/24 History Allergies Allergy/AdvReac Type Severity Reaction Status Date / Time codeine AdvReac Nausea & Verified 10/08/24 19:46 Vomiting ibuprofen [From Motrin] AdvReac Nausea & Verified 10/08/24 19:46 Vomiting Physical Exam Vitals: Vital Signs Temp Pulse Pulse Resp BP BP Pulse Ox 10/09/24 07:00 97.1 F L 76 10 L 10/09/24 01:14 110 H 20 10/09/24 00:01 98.1 F 73 20 155/87 97 10/08/24 23:22 110 H 20 10/08/24 23:18 97.7 F 110 H 20 178/103 97 10/08/24 22:40 98.1 F 70 18 173/76 97 10/08/24 18:20 97.8 F 74 18 178/91 98 10/08/24 16:54 76 18 159/83 98 Intake and Output 10/09/24 10/09/24 10/09/24 06:59 14:59 22:59 Output Total 500 450 Balance -500 -450 Output: Urine 500 450 Other: Voiding Method Urinal Urinal # Voids 1 Weight 116.573 kg - Constitutional Well nourished and well developed obese male. Alert and oriented x3. Not in acute distress. Appropriate mood and affect. Pleasant demeanor. General appearance: cooperative, no acute distress, obese - EENT Eyes: PERRLA - Respiratory Normal unlabored breathing rate and pattern. Symmetrical chest expansion. No wheezing. - Cardiovascular DP and PT pedal pulses diminished to BLE; DP pulses weakly biphasic via handheld Doppler US, LLE PT is weakly triphasic; RLE PT pulse not taken due to presence of open wound to the area. CFT is <3 seconds to all 10 toes. No hair growth noted to the level of the digits bilaterally. Skin temperature is warm to warm from the tibial tuberosity to the level of the toes bilaterally. Rhythm: regular (DP and PT pedal pulses diminished to BLE; DP pulses weakly biphasic via handheld Doppler US, LLE PT is weakly triphasic) - Gastrointestinal General gastrointestinal: soft, no tenderness - Integumentary Full thickness venous stasis ulcers down to level of subcutis and fat layer noted to the lateral left ankle, posterior left leg, and lateral left leg. Wounds measure approx. 9cm x 4cm x 0.3cm, 4cm x 2cm .0.3cm (medial wound); 14cm x 8cm x 0.3cm (posterior wound); and 3 posterior LE wounds measuring 4cm x 3cm x 0.3cm, 4.5cm x 5cm x 0.3cm, and 8cm x 4cm x 0.3cm. Wound bed to all three wounds is fibrogranular with extensive slough and biofilm noted; there is a malodor to the wounds. New superficial thickness wound noted to the right medial ankle, measuring approx. 4cm x2cm x0.2cm; wound bed is fibrogranular with extensive slough and biofilm. Wound edges do not undermine and no sinus tracts are noted. Wounds do not probe deep. Mild to moderate straw-colored yellow-green serous drainage noted. Periwound to all wounds is edematous and erythematous; surrounding skin to BLE is brawny and edematous, consistent with chronic venous stasis dermatitis and hemosiderin deposition. Integumentary: no cellulitis, ulcer - Neurologic Epicritic and protopathic sensations are grossly intact to the level of the digits bilaterally. Light touch sensation is grossly intact to the level of the digits bilaterally. - Musculoskeletal Muscle strength is 5/5 and symmetric for all muscle groups crossing the ankle joint bilaterally. Foot and ankle are in grossly rectus alignment bilaterally. No pain with active, passive, or resistive ROM to bilateral foot and ankle. Pain with palpation of the open wounds to LLE. Patient is ambulating with use of ca ne. Musculoskeletal: no generalized weakness, strength equal bilaterally - Psychiatric Psychiatric: A&O x's 3, appropriate affect, intact judgment & insight Results CBC & Chem 7: 10/08/24 16:14 10/09/24 03:54 Labs: Abnormal Lab Results - Last 24 Hours (Table) 10/08/24 10/08/24 10/08/24 Range/Units 16:14 16:14 18:32 RBC 4.35 L (4.40-5.60) 10*6/uL Hct 39.2 L (39.6-50.0) % MPV 9.0 L (9.5-12.2) fL APTT 19.4 L (22.0-30.0) sec Chloride 111 H (98-107) mmol/L Carbon Dioxide 14 L (22-30) mmol/L Creatinine 0.65 L (0.66-1.25) mg/dL Glucose 119 H (74-99) mg/dL ALT 54 H (4-49) U/L C-Reactive Protein (<1.0) mg/dL Total Protein 8.4 H (6.3-8.2) g/dL 10/09/24 10/09/24 Range/Units 03:54 03:54 RBC (4.40-5.60) 10*6/uL Hct (39.6-50.0) % MPV (9.5-12.2) fL APTT (22.0-30.0) sec Chloride (98-107) mmol/L Carbon Dioxide (22-30) mmol/L Creatinine 0.59 L (0.66-1.25) mg/dL Glucose (74-99) mg/dL ALT (4-49) U/L C-Reactive Protein 3.6 H (<1.0) mg/dL Total Protein (6.3-8.2) g/dL Venous US: report reviewed (DVT noted to the LLE calf to proximal popliteal vein), image reviewed Assessment and Plan (1) Cellulitis Narrative/Plan: Reviewed labs; WBC count is 9.5. Patient is currently on IV Zosyn and received prior doses of IV vancomycin and ceftriaxone. Infectious diseases is following. Continue with abx per Dr. Parker's (Infectious Diseases) recommendations. Leg wounds were swabbed for A&A cultures; A&A cultures and sensitivity are pending. Patient's cellulitis to BLE appears improved compared to his outpatient visit yesterday. Current Visit: Yes Status: Acute Code(s): L03.90 - CELLULITIS, UNSPECIFIED SNOMED Code(s): 861591972 (2) Venous insufficiency Narrative/Plan: Patient has SHAUN bandaged to BLE for compression. Continue with SHAUN bandage compression therapy for bilateral venous insufficiency. Current Visit: Yes Status: Acute Code(s): I87.2 - VENOUS INSUFFICIENCY (CHRONIC) (PERIPHERAL) SNOMED Code(s): 48210671 (3) Venous stasis ulcer Narrative/Plan: Dressings were changed at bedside today. Wounds were swabbed for A&A cultures; results pending. Wounds to BLE were debrided with gauze soaked with quarter strength Dakin's solution. Applied Opticell AG to all wounds, and dressed with gauze, abdominal pads, Kerlix rolls, and SHAUN bandages. Patient tolerated the debridement and dressing change well. Nursing staff to continue with daily dressing changes consisting of gently debriding wounds with Dakin's solution- soaked gauze, and then applying Opticell AG to the wound beds, covered with gauze pads, abdominal pads, Kerlix rolls, and SHAUN bandages. Patient is to follow up with this provider early next week after discharge for continued wound care. Patient already has home health nurse who changes his dressings on Wednesdays and Fridays. Pain to LLE wounds is well controlled with current pain medication regimen; continue with current pain medications. Current Visit: No Status: Acute Code(s): I83.009 - VARICOSE VEINS OF UNSP LOWER EXTREMITY W ULCER OF UNSP SITE SNOMED Code(s): 83377058 (4) Chronic deep vein thrombosis (DVT) Narrative/Plan: Reviewed LLE doppler US; results show findings consistent with acute DVT in the popliteal veins of the proximal calf veins. Recommend anticoagulant therapy per hospitalist recommendations. Current Visit: No Status: Acute Code(s): I82.509 - CHRONIC EMBOLISM AND THOMBOS UNSP DEEP VN UNSP LOW EXTRM SNOMED Code(s): 89592980815993263 Plan: Discussed plan with patient in detail. Patient will follow up within 1 week of discharge. He verbalized understanding and agreement with the treatment plan as stated. All of his questions were answered to his satisfaction. Dr. Amado, thank you for the consult. Time with Patient: Greater than 30
[2024-10-09] MEDS ORDERED: HEPARIN SODIUM 1,000 UN/ML (10ML VL) IV PRN (19:15)
[2024-10-09] MEDS: HEPARIN SOD,PORK IN 0.45% NACL 25,000 UNIT in 0.45% NACL 1 250ML.BAG IV SCH (19:53)
[2024-10-09] MEDS: HEPARIN SODIUM 1,000 UN/ML (10ML VL) IV ONE (19:53)
--- NOTE | 2024-10-09 23:51 | P.CONS ---
History of Present Illness - Reason for Consult Consult date: 10/09/24 Left foot cellulitis Requesting physician: Renan Amado - Chief Complaint Left leg pain swelling redness x days - History of Present Illness Patient is a 69-year-old male with a past medical history significant for COPD, Deep Vein Thrombosis (DVT), GERD/Reflux, Hypertension in this patient also history of left lower extremity venous stasis ulcer for the patient has been following with his chro patient recently did have a debridement of his wound done on 07/28/2024 that did grew Pseudomonas aeruginosa with a previous culture on 06/05/2023 was positive for Enterobacter and Pseudomonas aeruginosa patient has been sent to the ER as the patient was noticed to have worsening of his wound with some foul-smelling and need for IV antibiotic therapy patient denies having any high-grade fever or any chills the patient denies having any chest pain shortness of breath or cough no nausea vomiting no abdominal pain has been complaining of some dull aching pain to the left lower extremity moderate redness without radiation with associated swelling redness and foul-smelling drainage on presentation to the hospital the patient was afebrile he was mildly tachycardic but not hypotensive or hypoxic patient did have a white count of 9.50 creatinine 0.65 electrolyte has been normal liver enzymes are normal patient did have blood cultures obtained as well as local wound culture he was started on Rocephin and vancomycin infectious disease was consulted for further management of antibiotic therapy Review of Systems Positive point and negatives has been mentioned in the HPI, complete review of systems was performed and all other systems are negative Past Medical History Past Medical History: Blood Disorder, COPD, Deep Vein Thrombosis (DVT), GERD/Reflux, Hypertension Additional Past Medical History / Comment(s): HX FACTOR V clotting disorder, recurrent venous leg ulcers, CHRONIC BACK PAIN. Current lt leg wound. History of Any Multi-Drug Resistant Organisms: MRSA Year Discovered:: 02/02/2015 MDRO Source:: Right Leg Past Surgical History: Heart Catheterization Additional Past Surgical History / Comment(s): BLOOD CLOT REMOVED FROM RT LEG. COLONOSCOPY Past Anesthesia/Blood Transfusion Reactions: No Reported Reaction Past Psychological History: No Psychological Hx Reported Smoking Status: Former smoker Past Alcohol Use History: Rare Additional Past Alcohol Use History / Comment(s): started smoking at age 15, 2ppd, quit at age 17. Past Drug Use History: None Reported - Past Family History Mother Family Medical History: Cancer Brother(s) Family Medical History: Cancer Father Family Medical History: Cancer Medications and Allergies Home Medications Medication Instructions Recorded Confirmed Type atenoloL 100 mg PO DAILY 01/19/15 10/08/24 History HYDROcodone/APAP 10-325MG [[place] 1 tab PO 5XD 08/21/15 10/08/24 History 10-325] Ciprofloxacin HCl [Cipro] 500 mg PO Q12HR 10/08/24 10/08/24 History Ergocalciferol (Vitamin D2) 1,250 mcg PO MO 10/08/24 10/08/24 History [Drisdol (GEQ) 1,250 MCG (50,000 IU)] Gabapentin [Neurontin] 800 mg PO BID PRN 10/08/24 10/08/24 History Allergies Allergy/AdvReac Type Severity Reaction Status Date / Time codeine AdvReac Nausea & Verified 10/08/24 19:46 Vomiting ibuprofen [From Motrin] AdvReac Nausea & Verified 10/08/24 19:46 Vomiting Physical Exam Vitals: Vital Signs Temp Pulse Pulse Resp BP BP Pulse Ox 10/09/24 07:00 97.1 F L 76 10 L 10/09/24 01:14 110 H 20 10/09/24 00:01 98.1 F 73 20 155/87 97 10/08/24 23:22 110 H 20 10/08/24 23:18 97.7 F 110 H 20 178/103 97 10/08/24 22:40 98.1 F 70 18 173/76 97 10/08/24 18:20 97.8 F 74 18 178/91 98 10/08/24 16:54 76 18 159/83 98 10/08/24 14:59 99.7 F H 97 20 180/76 95 Intake and Output 10/08/24 10/09/24 10/09/24 22:59 06:59 14:59 Output Total 500 450 Balance -500 -450 Output: Urine 500 450 Other: Voiding Method Urinal Urinal Weight 116.573 kg GENERAL DESCRIPTION: Elderly male lying in bed, no distress. No tachypnea or accessory muscle of respiration use. HEENT: Shows Pallor , no scleral icterus. Oral mucous membrane is dry. NECK: Trachea central, no thyromegaly. LUNGS: Unlabored breathing. Clear to auscultation anteriorly. No wheeze or c rackle. HEART: S1, S2, regular rate and rhythm. No loud murmur ABDOMEN: Soft, no tenderness , guarding or rigidity, no organomegaly EXTREMITIES: Left lower extremity with a venous stasis ulcer with some slough patient foul-smelling drainage SKIN: No rash, no masses palpable. NEUROLOGICAL: The patient is awake, alert, oriented x3, mood and affect normal. Results CBC & Chem 7: 10/08/24 16:14 10/09/24 03:54 Labs: Abnormal Lab Results - Last 24 Hours (Table) 10/08/24 10/08/24 10/08/24 Range/Units 16:14 16:14 18:32 RBC 4.35 L (4.40-5.60) 10*6/uL Hct 39.2 L (39.6-50.0) % MPV 9.0 L (9.5-12.2) fL APTT 19.4 L (22.0-30.0) sec Chloride 111 H (98-107) mmol/L Carbon Dioxide 14 L (22-30) mmol/L Creatinine 0.65 L (0.66-1.25) mg/dL Glucose 119 H (74-99) mg/dL ALT 54 H (4-49) U/L C-Reactive Protein (<1.0) mg/dL Total Protein 8.4 H (6.3-8.2) g/dL 10/09/24 10/09/24 Range/Units 03:54 03:54 RBC (4.40-5.60) 10*6/uL Hct (39.6-50.0) % MPV (9.5-12.2) fL APTT (22.0-30.0) sec Chloride (98-107) mmol/L Carbon Dioxide (22-30) mmol/L Creatinine 0.59 L (0.66-1.25) mg/dL Glucose (74-99) mg/dL ALT (4-49) U/L C-Reactive Protein 3.6 H (<1.0) mg/dL Total Protein (6.3-8.2) g/dL Assessment and Plan (1) Leg ulcer, left Current Visit: Yes Status: Acute Code(s): L97.929 - NON-PRS CHRONIC ULC UNSP PRT OF L LOW LEG W UNSP SEVERITY SNOMED Code(s): 67872535 (2) Left leg cellulitis Current Visit: Yes Status: Acute Code(s): L03.116 - CELLULITIS OF LEFT LOWER LIMB SNOMED Code(s): 01268192872601358 Plan: 1patient presented to hospital with worsening wound to the left lower extremity concerning for wound infection and cellulitis with the last local culture positive for Pseudomonas aeruginosa more likely the same pathogen 2-discontinue Rocephin and vancomycin 3-we will start the patient on Zosyn 3.375 g every 8 hours 4-care discussed with the chro he will be changing the dressing and obtain deep culture Zosyn before that we will decide ultimate discharge antibiotics Question concern answered We will follow on clinical condition and cultures to further adjust medication if needed Thank you for this consultation we will follow the patient along with you Dictation was produced using [employer] dictation software. please excuse any grammatical, word or spelling errors. Time with Patient: Greater than 30
[2024-10-10 08:08] LABS: Basophils # (A) 0.06 10*3/uL (0.00-0.10); Basophils % (A) 0.9 %; Eosinophils # (A) 0.46 10*3/uL (0.04-0.35); Eosinophils % (A) 7.2 %; HCT 34.6 % (39.6-50.0); HGB 11.7 g/dL (13.0-17.0); Lymphocytes # (A) 2.39 10*3/uL (0.90-5.00); Lymphocytes % (A) 37.6 %; MCH 31.0 pg (27.0-32.0); MCHC 33.8 g/dL (32.0-37.0); MCV 91.5 fL (80.0-97.0); Monocytes # (A) 0.46 10*3/uL (0.20-1.00); Monocytes % (A) 7.2 %; Neutrophils # (A) 2.97 10*3/uL (1.80-7.70); Neutrophils % (A) 46.8 %; Platelet Count 244 10*3/uL (140-440); RBC 3.78 10*6/uL (4.40-5.60); RDW 14.8 % (11.5-14.5); WBC 6.36 10*3/uL (4.50-10.00)
[2024-10-10 09:10] LABS: ALT 29 U/L (4-49); AST 42 U/L (17-59); African American GFR (CKD) >90 (>60 ml/min/1.73 sqM); Albumin 3.6 g/dL (3.5-5.0); Albumin/Globulin Ratio 1.0; Alkaline Phosphatase 64 U/L (38-126); Anion Gap 10 mmol/L; Blood Urea Nitrogen 13 mg/dL (9-20); Calcium 8.4 mg/dL (8.4-10.2); Carbon Dioxide 21 mmol/L (22-30); Chloride 109 mmol/L (98-107); Globulin 3.5 g/dL; Glucose 99 mg/dL (74-99); Non-African American GFR(CKD) >90 (>60 ml/min/1.73 sqM); Potassium 3.5 mmol/L (3.5-5.1); Sodium 140 mmol/L (137-145); Total Protein 7.1 g/dL (6.3-8.2)
--- NOTE | 2024-10-10 15:18 | P.PN ---
Subjective Progress Note Date: 10/10/24 patient is 69-year-old gentleman past medical history significant for DVT, chronic wounds of left lower extremity presented the ER because of worsening left lower extremity wound. Patient history of nonhealing wound of left leg, is following up outpatient by lens coating technician. Patient stated that he was on oral antibiotics but his wounds were not healing. Shear Setter evaluated him yesterday and recommended patient needs to come to the hospital for further evaluation and treatment. Patient denies any fever chills. There is no complaint of shortness of breath. Patient denies any palpitation. There is no complaint of orthopnea or PND. Denies any nausea, vomiting abdominal pain. Patient denies any com plaint of dizziness. There is no complaint of headache. Because of left lower extremity wound, patient came to the ER Patient admitted to internal medicine service 10/10. Patient seen and examined. States swelling of left lower extremity has improved. REVIEW OF SYSTEMS: CONSTITUTIONAL: No fever, no malaise,. CARDIOVASCULAR: No chest pain, no palpitations, no syncope. PULMONARY: No shortness of breath, no cough, GASTROINTESTINAL: No diarrhea, no nausea, no vomiting, no abdominal pain. NEUROLOGICAL: No headaches, no weakness, PHYSICAL EXAMINATION: GENERAL: The patient is alert and oriented x3, not in any acute distress. Well developed, well nourished. HEENT: Pupils are round and equally reacting to light. EOMI. No scleral icterus. No conjunctival pallor. Normocephalic, atraumatic. No pharyngeal erythema. No thyromegaly. CARDIOVASCULAR: S1 and S2 present. No murmurs, rubs, or gallops. PULMONARY: Chest is clear to auscultation, no wheezing or crackles. ABDOMEN: Soft, nontender, nondistended, normoactive bowel sounds. No palpable organomegaly. MUSCULOSKELETAL: No joint swelling or deformity. EXTREMITIES: Left lower extremity wound seen NEUROLOGICAL: Gross neurological examination did not reveal any focal deficits. SKIN: No rashes. Assessment and plan Left lower extremity cellulitis Acute DVT left lower extremity Chronic wounds of left lower extremity History of DVT Monitor vital signs Monitor CBC Monitor CMP Follow-up blood cultures Ultrasound lower extremity did not show DVT in the popliteal vein Currently on pharmacy to dose heparin Continue IV Zosyn Podiatry following ID following Labs and medication were reviewed.. Continue same treatment. Continue with symptomatic treatment. Resume home medication. Monitor labs and vitals. DVT and GI prophylaxis. Further recommendations as per clinical course of the patient Dictation was produced using [employer] dictation software. please excuse any grammatical, word or spelling errors. Objective - Vital Signs Vital signs: Vital Signs Temp 97.6 F 10/10/24 07:25 Pulse 69 10/10/24 07:25 Resp 17 10/10/24 07:25 BP 162/69 10/10/24 07:25 Pulse Ox 99 10/10/24 07:25 FiO2 Intake & Output 10/09/24 10/10/24 10/10/24 18:59 06:59 18:59 Intake Total 472 221.021 312.391 Output Total 450 500 Balance 22 -278.979 312.391 Intake: Intake, IV Titration 221.021 72.391 Amount Heparin Sod,Pork in 0.45% 221.021 72.391 NaCl 25,000 unit In 0.45 % NaCl 1 250ml.bag @ 18 UNITS/KG/HR 20.983 mls/hr IV .[id number] [facility] Rx#: [id number] Oral 472 240 Output: Urine 450 500 Other: Voiding Method Urinal Urinal # Voids 1 2 - Labs CBC & Chem 7: 10/10/24 07:38 10/10/24 07:38 Labs: Abnormal Lab Results - Last 24 Hours (Table) 10/09/24 10/10/24 10/10/24 Range/Units 03:54 02:13 07:38 RBC 3.78 L (4.40-5.60) 10*6/uL Hgb 11.7 L (13.0-17.0) g/dL Hct 34.6 L (39.6-50.0) % RDW 14.8 H (11.5-14.5) % MPV 9.1 L (9.5-12.2) fL Eosinophils # 0.46 H (0.04-0.35) 10*3/uL APTT 56.3 H (22.0-30.0) sec Chloride (98-107) mmol/L Carbon Dioxide (22-30) mmol/L Creatinine (0.66-1.25) mg/dL C-Reactive Protein 3.6 H (<1.0) mg/dL 10/10/24 10/10/24 Range/Units 07:38 07:38 RBC (4.40-5.60) 10*6/uL Hgb (13.0-17.0) g/dL Hct (39.6-50.0) % RDW (11.5-14.5) % MPV (9.5-12.2) fL Eosinophils # (0.04-0.35) 10*3/uL APTT 81.1 H (22.0-30.0) sec Chloride 109 H (98-107) mmol/L Carbon Dioxide 21 L (22-30) mmol/L Creatinine 0.57 L (0.66-1.25) mg/dL C-Reactive Protein (<1.0) mg/dL Microbiology - Last 24 Hours (Table) 10/09/24 16:45 Gram Stain - Preliminary Leg - Left 10/08/24 16:14 Blood Culture - Preliminary Blood
[2024-10-10] MEDS: GABAPENTIN 400 MG CAP PO PRN (19:49)
[2024-10-11 08:03] LABS: Basophils # (A) 0.07 X 10*3/uL (0.00-0.10); Basophils % (A) 0.9 %; Eosinophils # (A) 0.49 X 10*3/uL (0.04-0.35); Eosinophils % (A) 6.4 %; HCT 37.3 % (39.6-50.0); HGB 12.1 g/dL (13.0-17.0); Immature Grans, Automated 0.40 %; Lymphocytes # (A) 3.30 X 10*3/uL (0.90-5.00); Lymphocytes % (A) 43.3 %; MCH 29.9 pg (27.0-32.0); MCHC 32.4 g/dL (32.0-37.0); MCV 92.1 FL (80.0-97.0); Monocytes # (A) 0.59 X 10*3/uL (0.20-1.00); Monocytes % (A) 7.7 %; NRBC Per 100 WBC 0 X 10*3/uL (0.00-0.01); Neutrophils # (A) 3.15 X 10*3/uL (1.80-7.70); Neutrophils % (A) 41.3 %; Platelet Count 265 X 10*3/uL (140-440); RBC 4.05 X 10*6/uL (4.40-5.60); RDW 15.1 % (11.5-14.5); WBC 7.63 X 10*3/uL (4.50-10.00)
[2024-10-11] MEDS: ERGOCALCIFEROL 1,250 MCG (50,000 IU) CAPSULE PO SCH (08:20)
[2024-10-11 09:24] LABS: ALT 26 U/L (10-49); AST 25 U/L (14-35); Albumin 3.4 g/dL (3.8-4.9); Albumin/Globulin Ratio 1.00 Ratio (1.60-3.17); Alkaline Phosphatase 54 U/L (41-126); Anion Gap 10.70 mmol/L (4.00-12.00); BUN/Creat Ratio 19.40 Ratio (12.00-20.00); Blood Urea Nitrogen 9.7 mg/dL (9.0-27.0); Calcium 8.3 mg/dL (8.7-10.3); Carbon Dioxide 19.3 mmol/L (21.6-31.8); Chloride 107 mmol/L (96-109); Globulin 3.4 g/dL (1.6-3.3); Glucose 97 mg/dL (70-110); Potassium 3.6 mmol/L (3.5-5.5); Sodium 137 mmol/L (135-145); Total Protein 6.8 g/dL (6.2-8.2)
--- NOTE | 2024-10-11 10:44 | P.GSCN ---
History of Present Illness Consult date: 10/11/24 Reason for Consult: Acute left lower extremity PT, already on anticoagulation Requesting physician: Renan Amado History of present illness: This is a pleasant 69-year-old male with a past medical history including venous insufficiency with venous stasis and venous ulcers, factor V Leiden and right lower extremity deep vein thrombosis who is on warfarin managed by his PCP Dr. Emerson. Patient presented to the emergency department directed by his clinical dietetic technician who he follows for wound care of his lower extremity venous stasis ulcers with concerns for cellulitis. Patient had increased swelling on the left lower extremity which he underwent venous doppler which reported positive acute popliteal to calf vein deep vein thrombosis. Patient states he has been taking his warfarin as directed however it has been interrupted as he has been following in the wound clinic and had had surgical debridement about 2 to 3 weeks ago which he states he has to stop his warfarin for. Vascular surgery was consulted for acute DVT on anticoagulation. Patient states he has not been very ambulatory secondary to pain in his lower extremities from his chronic wounds and venous stasis. He has some increased swelling on the left lower extremity. Denies any shortness of breath or chest pain. INR on admission was 1.1. Patient is currently on heparin drip. Review of Systems A 14 point review systems was completed all pertinent positives and negatives as stated in the HPI. Past Medical History Past Medical History: Blood Disorder, COPD, Deep Vein Thrombosis (DVT), GERD/Reflux, Hypertension Additional Past Medical History / Comment(s): HX FACTOR V clotting disorder, recurrent venous leg ulcers, CHRONIC BACK PAIN. Current lt leg wound. History of Any Multi-Drug Resistant Organisms: MRSA Year Discovered:: 02/02/2015 MDRO Source:: Right Leg Past Surgical History: Heart Catheterization Additional Past Surgical History / Comment(s): BLOOD CLOT REMOVED FROM RT LEG. COLONOSCOPY Past Anesthesia/Blood Transfusion Reactions: No Reported Reaction Past Psychological History: No Psychological Hx Reported Smoking Status: Former smoker Past Alcohol Use History: Rare Additional Past Alcohol Use History / Comment(s): started smoking at age 15, 2ppd, quit at age 17. Past Drug Use History: None Reported - Past Family History Mother Family Medical History: Cancer Brother(s) Family Medical History: Cancer Father Family Medical History: Cancer Medications and Allergies Home Medications Medication Instructions Recorded Confirmed Type atenoloL 100 mg PO DAILY 01/19/15 10/08/24 History HYDROcodone/APAP 10-325MG [[place] 1 tab PO 5XD 08/21/15 10/08/24 History 10-325] Ciprofloxacin HCl [Cipro] 500 mg PO Q12HR 10/08/24 10/08/24 History Ergocalciferol (Vitamin D2) 1,250 mcg PO MO 10/08/24 10/08/24 History [Drisdol (GEQ) 1,250 MCG (50,000 IU)] Gabapentin [Neurontin] 800 mg PO BID PRN 10/08/24 10/08/24 History Allergies Allergy/AdvReac Type Severity Reaction Status Date / Time codeine AdvReac Nausea & Verified 10/08/24 19:46 Vomiting ibuprofen [From Motrin] AdvReac Nausea & Verified 10/08/24 19:46 Vomiting Surgical - Exam Vital Signs Temp Pulse Resp BP Pulse Ox 99.7 F H 97 20 180/76 95 10/08/24 14:59 10/08/24 14:59 10/08/24 14:59 10/08/24 14:59 10/08/24 14:59 General appearance: The patient is alert, oriented, appears in no acute distress. HET: Head is normocephalic and atraumatic. Pupils are equal and reactive. Neck: Supple. Heart: Regular. Lungs: Equal expansion, normal respiratory effort. Abdomen: Soft, nontender, nondistended. Extremities: Bilateral lower extremity swelling with venous stasis. Bilateral lower extremities with dressings and Tamir wraps. Neurological: Alert and oriented. Results - Labs 10/11/24 05:33 10/11/24 05:33 Abnormal Lab Results - Last 24 Hours (Table) 10/09/24 10/10/24 10/10/24 Range/Units 03:54 07:38 16:14 RBC (4.40-5.60) X 10*6/uL Hgb (13.0-17.0) g/dL Hct (39.6-50.0) % RDW (11.5-14.5) % MPV (9.5-12.2) FL Eosinophils # (0.04-0.35) X 10*3/uL ESR 49 H (0-20) mm/Hr APTT 54.2 H (22.0-30.0) sec Chloride 109 H (98-107) mmol/L Carbon Dioxide 21 L (22-30) mmol/L Creatinine 0.57 L (0.66-1.25) mg/dL 10/11/24 10/11/24 Range/Units 05:33 05:33 RBC 4.05 L (4.40-5.60) X 10*6/uL Hgb 12.1 L (13.0-17.0) g/dL Hct 37.3 L (39.6-50.0) % RDW 15.1 H (11.5-14.5) % MPV 9.4 L (9.5-12.2) FL Eosinophils # 0.49 H (0.04-0.35) X 10*3/uL ESR (0-20) mm/Hr APTT 77.7 H (22.0-30.0) sec Chloride (98-107) mmol/L Carbon Dioxide (22-30) mmol/L Creatinine (0.66-1.25) mg/dL Microbiology - Last 24 Hours (Table) 10/09/24 16:45 Gram Stain - Preliminary Leg - Left Diabetes panel 10/10/24 Range/Units 07:38 Sodium 140 (137-145) mmol/L Potassium 3.5 (3.5-5.1) mmol/L Chloride 109 H (98-107) mmol/L Carbon Dioxide 21 L (22-30) mmol/L BUN 13 (9-20) mg/dL Creatinine 0.57 L (0.66-1.25) mg/dL Glucose 99 (74-99) mg/dL Calcium 8.4 (8.4-10.2) mg/dL AST 42 (17-59) U/L ALT 29 (4-49) U/L Alkaline Phosphatase 64 (38-126) U/L Total Protein 7.1 (6.3-8.2) g/dL Albumin 3.6 (3.5-5.0) g/dL Calcium panel 10/10/24 Range/Units 07:38 Calcium 8.4 (8.4-10.2) mg/dL Albumin 3.6 (3.5-5.0) g/dL Pituitary panel 10/10/24 Range/Units 07:38 Sodium 140 (137-145) mmol/L Potassium 3.5 (3.5-5.1) mmol/L Chloride 109 H (98-107) mmol/L Carbon Dioxide 21 L (22-30) mmol/L BUN 13 (9-20) mg/dL Creatinine 0.57 L (0.66-1.25) mg/dL Glucose 99 (74-99) mg/dL Calcium 8.4 (8.4-10.2) mg/dL Adrenal panel 10/10/24 Range/Units 07:38 Sodium 140 (137-145) mmol/L Potassium 3.5 (3.5-5.1) mmol/L Chloride 109 H (98-107) mmol/L Carbon Dioxide 21 L (22-30) mmol/L BUN 13 (9-20) mg/dL Creatinine 0.57 L (0.66-1.25) mg/dL Glucose 99 (74-99) mg/dL Calcium 8.4 (8.4-10.2) mg/dL Total Bilirubin 0.6 (0.2-1.3) mg/dL AST 42 (17-59) U/L ALT 29 (4-49) U/L Alkaline Phosphatase 64 (38-126) U/L Total Protein 7.1 (6.3-8.2) g/dL Albumin 3.6 (3.5-5.0) g/dL - Imaging Comments: Venous Doppler study reports findings consistent with acute DVT in the popliteal vein in the proximal calf veins. Assessment and Plan Assessment: 1. Acute left lower extremity DVT, provoked 2. Factor V Leiden on anticoagulation, however interrupted for surgical procedures 3. Lower extremity cellulitis 4. Bilateral lower extremity venous insufficiency with venous stasis and venous ulcers 5. History of right lower extremity DVT Plan: 1. There is no indication for any vascular surgical intervention 2. We will consult hematology for recommendations for anticoagulation 3. Continue wound care management per infectious disease and podiatry Thank you for this consultation, we will sign off at this time. The impression and plan of care has been dictated as directed. I performed a history and examination of this patient, discussed the same with the dictator. I agree with the dictator's note ,documented as a scribe. Any additional findings or plans will be noted.
--- NOTE | 2024-10-11 13:31 | P.CONS ---
History of Present Illness - Reason for Consult Consult date: 10/11/24 Acute DVT on anticoagulation - History of Present Illness 69 year old man with PMH significant for previous DVT in the right leg and chronic BL LE wounds, venous insufficiency, venous stasis and venous ulcers for which he has followed with wound care and vascular surgery previously. Hematologic history: History of DVT in the right leg for which he had been maintained on Warfarin through his PCP, Dr. Emerson. He states his current dose has been 2 mg daily and has his INR checked once weekly, most recently done 1 week ago. Additionally, he has a questionable history of Factor V Leiden, without known confirmatory labs and the he himself is not 100% certain. On admission, he had noted swelling of the left lower extremity and he endorses having had minimal ambulation secondary to the pain associated with his poorly healing lower extremity wounds. Duplex ultrasound of left lower extremity was completed which showed findings consistent with acute DVT in the popliteal vein. He denies any chest pain or shortness of breath, however endorses having a burning like pain in the BL lower extremities associated with his poor healing wounds. Review of Systems REVIEW OF SYSTEMS: All systems reviewed, pertinent positives and negatives noted in HPI. All other symptoms are negative. Past Medical History Past Medical History: Blood Disorder, COPD, Deep Vein Thrombosis (DVT), GERD/Reflux, Hypertension Additional Past Medical History / Comment(s): HX FACTOR V clotting disorder, recurrent venous leg ulcers, CHRONIC BACK PAIN. Current lt leg wound. History of Any Multi-Drug Resistant Organisms: MRSA Year Discovered:: 02/02/2015 MDRO Source:: Right Leg Past Surgical History: Heart Catheterization Additional Past Surgical History / Comment(s): BLOOD CLOT REMOVED FROM RT LEG. COLONOSCOPY Past Anesthesia/Blood Transfusion Reactions: No Reported Reaction Past Psychological History: No Psychological Hx Reported Smoking Status: Former smoker Past Alcohol Use History: Rare Additional Past Alcohol Use History / Comment(s): started smoking at age 15, 2ppd, quit at age 17. Past Drug Use History: None Reported - Past Family History Mother Family Medical History: Cancer Brother(s) Family Medical History: Cancer Father Family Medical History: Cancer Medications and Allergies Home Medications Medication Instructions Recorded Confirmed Type atenoloL 100 mg PO DAILY 01/19/15 10/08/24 History HYDROcodone/APAP 10-325MG [[place] 1 tab PO 5XD 08/21/15 10/08/24 History 10-325] Ciprofloxacin HCl [Cipro] 500 mg PO Q12HR 10/08/24 10/08/24 History Ergocalciferol (Vitamin D2) 1,250 mcg PO MO 10/08/24 10/08/24 History [Drisdol (GEQ) 1,250 MCG (50,000 IU)] Gabapentin [Neurontin] 800 mg PO BID PRN 10/08/24 10/08/24 History Allergies Allergy/AdvReac Type Severity Reaction Status Date / Time codeine AdvReac Nausea & Verified 10/08/24 19:46 Vomiting ibuprofen [From Motrin] AdvReac Nausea & Verified 10/08/24 19:46 Vomiting Physical Exam Vitals: Vital Signs Temp Pulse Resp BP BP Pulse Ox 10/11/24 07:00 97.8 F 59 L 19 156/76 98 10/11/24 02:00 98.2 F 61 18 150/73 99 10/10/24 19:55 98 F 65 18 176/65 97 10/10/24 13:40 97.9 F 56 L 16 153/65 99 Intake and Output 10/10/24 10/11/24 10/11/24 22:59 06:59 14:59 Intake Total 177.609 27.978 240 Output Total 150 600 500 Balance 27.609 -572.022 -260 Intake: Intake, IV Titration 177.609 27.978 Amount Heparin Sod,Pork in 0.45% 177.609 27.978 NaCl 25,000 unit In 0.45 % NaCl 1 250ml.bag @ 18 UNITS/KG/HR 20.983 mls/hr IV .[id number] [facility] Rx#: [id number] Oral 240 Output: Urine 150 600 500 Other: Voiding Method Urinal Physical Exam: General: nontoxic, no distress, appears at stated age Derm: warm, dry, intact Head: atraumatic, normocephalic, symmetric Eyes: EOMI, anicteric sclera Mouth: no lip lesion, mucus membranes moist Cardiovascular: S1 S2 reg, no murmur, rubs, or gallops Lungs: CTA bilateral, no rales, no accessory muscle use Abdominal: soft, non-tender to palpataion, no appreciable organomegaly Extremities: BL LE wrapped in fresh bandages, with known poor healing woulds and evidence of venous stasis Neuro: Alert, Oriented, CNII-XII grossly intact, gait normal Psych: well appearing, appropriate affect Results CBC & Chem 7: 10/11/24 05:33 07 05:33 Labs: Abnormal Lab Results - Last 24 Hours (Table) 10/10/24 10/11/24 10/11/24 Range/Units 16:14 05:33 05:33 RBC 4.05 L (4.40-5.60) X 10*6/uL Hgb 12.1 L (13.0-17.0) g/dL Hct 37.3 L (39.6-50.0) % RDW 15.1 H (11.5-14.5) % MPV 9.4 L (9.5-12.2) FL Eosinophils # 0.49 H (0.04-0.35) X 10*3/uL APTT 54.2 H (22.0-30.0) sec Carbon Dioxide 19.3 L (21.6-31.8) mmol/L Creatinine 0.5 L (0.6-1.5) mg/dL Calcium 8.3 L (8.7-10.3) mg/dL Albumin 3.4 L (3.8-4.9) g/dL Globulin 3.4 H (1.6-3.3) g/dL Albumin/Globulin Ratio 1.00 L (1.60-3.17) Ratio 10/11/24 10/11/24 Range/Units 05:33 11:51 RBC (4.40-5.60) X 10*6/uL Hgb (13.0-17.0) g/dL Hct (39.6-50.0) % RDW (11.5-14.5) % MPV (9.5-12.2) FL Eosinophils # (0.04-0.35) X 10*3/uL APTT 77.7 H 57.3 H (22.0-30.0) sec Carbon Dioxide (21.6-31.8) mmol/L Creatinine (0.6-1.5) mg/dL Calcium (8.7-10.3) mg/dL Albumin (3.8-4.9) g/dL Globulin (1.6-3.3) g/dL Albumin/Globulin Ratio (1.60-3.17) Ratio Microbiology - Last 24 Hours (Table) 10/08/24 16:14 Blood Culture Gram Stain - Preliminary Blood Blood Culture - Preliminary Molecular ID 10/09/24 16:45 Gram Stain - Preliminary Leg - Left Wound Culture - Preliminary Pseudomonas aeruginosa Gram Neg Bacilli Assessment and Plan Assessment: #Provoked acute DVT, while previously on anticoagulation, likely secondary to poor wound healing and limited ambulation - He had previous DVT in the right leg which had a thrombectomy and had been maintained on warfarin - Last took his warfarin 1 week ago - Left lower extremity duplex US read and reviewed confirmed presence of a DVT - Will discontinue heparin drip at this time and initiate eliquis 5 mg BID - Considering the chronicity of his venous condition and limited ambulation, recommendation to continue with anticoagulation indefinitely
[2024-10-11] MEDS: Apixaban Initiation Dose--VTE 5 MG TAB PO SCH (14:09)
--- NOTE | 2024-10-11 14:14 | P.PN ---
Subjective Progress Note Date: 10/11/24 patient is 69-year-old gentleman past medical history significant for DVT, chronic wounds of left lower extremity presented the ER because of worsening left lower extremity wound. Patient history of nonhealing wound of left leg, is following up outpatient by technical operations specialist. Patient stated that he was on oral antibiotics but his wounds were not healing. Tafe Teacher evaluated him yesterday and recommended patient needs to come to the hospital for further evaluation and treatment. Patient denies any fever chills. There is no complaint of shortness of breath. Patient denies any palpitation. There is no complaint of orthopnea or PND. Denies any nausea, vomiting abdominal pain. Patient denies any com plaint of dizziness. There is no complaint of headache. Because of left lower extremity wound, patient came to the ER Patient admitted to internal medicine service 10/10. Patient seen and examined. States swelling of left lower extremity has improved. . Patient seen and examined. Still complaining of a lot of pain in left leg REVIEW OF SYSTEMS: CONSTITUTIONAL: No fever, no malaise,. CARDIOVASCULAR: No chest pain, no palpitations, no syncope. PULMONARY: No shortness of breath, no cough, GASTROINTESTINAL: No diarrhea, no nausea, no vomiting, no abdominal pain. NEUROLOGICAL: No headaches, no weakness, PHYSICAL EXAMINATION: GENERAL: The patient is alert and oriented x3, not in any acute distress. Well developed, well nourished. HEENT: Pupils are round and equally reacting to light. EOMI. No scleral icterus. No conjunctival pallor. Normocephalic, atraumatic. No pharyngeal erythema. No thyromegaly. CARDIOVASCULAR: S1 and S2 present. No murmurs, rubs, or gallops. PULMONARY: Chest is clear to auscultation, no wheezing or crackles. ABDOMEN: Soft, nontender, nondistended, normoactive bowel sounds. No palpable organomegaly. MUSCULOSKELETAL: No joint swelling or deformity. EXTREMITIES: Left lower extremity wound seen NEUROLOGICAL: Gross neurological examination did not reveal any focal deficits. SKIN: No rashes. Assessment and plan Left lower extremity cellulitis Acute DVT left lower extremity Chronic wounds of left lower extremity History of DVT Monitor vital signs Monitor CBC Monitor CMP Follow-up blood cultures Ultrasound lower extremity did not show DVT in the popliteal vein DC heparin, start Eliquis Continue IV Zosyn Podiatry following ID following Vascular surgery evaluated, recommended changing oral anticoagulation to Eliquis and discontinuing Coumadin Labs and medication were reviewed.. Continue same treatment. Continue with symptomatic treatment. Resume home medication. Monitor labs and vitals. DVT and GI prophylaxis. Further recommendations as per clinical course of the patient Dictation was produced using [employer] dictation software. please excuse any grammatical, word or spelling errors. Objective - Vital Signs Vital signs: Vital Signs Temp 97.8 F 10/11/24 07:00 Pulse 59 L 10/11/24 07:00 Resp 19 10/11/24 07:00 BP 156/76 10/11/24 07:00 Pulse Ox 98 10/11/24 07:00 FiO2 Intake & Output 10/10/24 10/11/24 10/11/24 18:59 06:59 18:59 Intake Total 430.391 205.587 367.11 Output Total 750 500 Balance 430.391 -544.413 -132.89 Intake: Intake, IV Titration 72.391 205.587 127.11 Amount Heparin Sod,Pork in 0.45% 72.391 205.587 127.11 NaCl 25,000 unit In 0.45 % NaCl 1 250ml.bag @ 18 UNITS/KG/HR 20.983 mls/hr IV .[id number] [facility] Rx#: [id number] Oral 358 240 Output: Urine 750 500 Other: Voiding Method Urinal # Voids 2 - Labs CBC & Chem 7: 10/11/24 05:33 10/11/24 05:33 Labs: Abnormal Lab Results - Last 24 Hours (Table) 10/10/24 10/11/24 10/11/24 Range/Units 16:14 05:33 05:33 RBC 4.05 L (4.40-5.60) X 10*6/uL Hgb 12.1 L (13.0-17.0) g/dL Hct 37.3 L (39.6-50.0) % RDW 15.1 H (11.5-14.5) % MPV 9.4 L (9.5-12.2) FL Eosinophils # 0.49 H (0.04-0.35) X 10*3/uL APTT 54.2 H (22.0-30.0) sec Carbon Dioxide 19.3 L (21.6-31.8) mmol/L Creatinine 0.5 L (0.6-1.5) mg/dL Calcium 8.3 L (8.7-10.3) mg/dL Albumin 3.4 L (3.8-4.9) g/dL Globulin 3.4 H (1.6-3.3) g/dL Albumin/Globulin Ratio 1.00 L (1.60-3.17) Ratio 10/11/24 10/11/24 Range/Units 05:33 11:51 RBC (4.40-5.60) X 10*6/uL Hgb (13.0-17.0) g/dL Hct (39.6-50.0) % RDW (11.5-14.5) % MPV (9.5-12.2) FL Eosinophils # (0.04-0.35) X 10*3/uL APTT 77.7 H 57.3 H (22.0-30.0) sec Carbon Dioxide (21.6-31.8) mmol/L Creatinine (0.6-1.5) mg/dL Calcium (8.7-10.3) mg/dL Albumin (3.8-4.9) g/dL Globulin (1.6-3.3) g/dL Albumin/Globulin Ratio (1.60-3.17) Ratio Microbiology - Last 24 Hours (Table) 10/08/24 16:14 Blood Culture Gram Stain - Preliminary Blood Blood Culture - Preliminary Molecular ID 10/09/24 16:45 Gram Stain - Preliminary Leg - Left Wound Culture - Preliminary Pseudomonas aeruginosa Gram Neg Bacilli
[2024-10-11] MEDS: HYDROmorphone 1 MG/ML 1 ML SYRINGE IVP PRN (15:08)
--- NOTE | 2024-10-11 16:56 | P.PN ---
Subjective Progress Note Date: 10/10/24 Principal diagnosis: Reason for follow-up is lower extremity ulcer and cellulitis Patient is a 69-year-old male with a past medical history significant for COPD, Deep Vein Thrombosis (DVT), GERD/Reflux, Hypertension in this patient also history of left lower extremity venous stasis ulcer presented to hospital with worsening pain and drainage concerning for wound infection with a recent outpatient culture positive for Pseudomonas. On today's evaluation that is 10/10/2024, Patient is afebrile patient is currently on room air and denies having any shortness of breath, the patient denies any chest pain or cough, the patient denies any nausea vomiting did not have any abdominal pain and no diarrhea patient circumventing of pain to the lower extremity especially with the dressing changes but no worsening. The patient white count is 6.36 creatinine 0.57, local cultures pending Objective - Vital Signs Vital signs: Vital Signs Temp 97.9 F 10/10/24 13:40 Pulse 56 L 10/10/24 13:40 Resp 16 10/10/24 13:40 BP 153/65 10/10/24 13:40 Pulse Ox 99 10/10/24 13:40 FiO2 Intake & Output 10/09/24 10/10/24 10/10/24 18:59 06:59 18:59 Intake Total 472 221.021 430.391 Output Total 450 500 Balance 22 -278.979 430.391 Intake: Intake, IV Titration 221.021 72.391 Amount Heparin Sod,Pork in 0.45% 221.021 72.391 NaCl 25,000 unit In 0.45 % NaCl 1 250ml.bag @ 18 UNITS/KG/HR 20.983 mls/hr IV .[id number] [facility] Rx#: [id number] Oral 472 358 Output: Urine 450 500 Other: Voiding Method Urinal Urinal # Voids 1 2 2 - Exam GENERAL DESCRIPTION: An elderly male lying in bed in no distress RESPIRATORY SYSTEM: Unlabored breathing , decreased breath sounds at bases HEART: S1 S2 regular rate and rhythm , ABDOMEN: Soft , no tenderness EXTREMITIES: Left lower extremity is currently dressed no drainage on the dressing - Labs CBC & Chem 7: 10/11/24 05:33 10/11/24 05:33 Labs: Abnormal Lab Results - Last 24 Hours (Table) 10/09/24 10/10/24 10/10/24 Range/Units 03:54 02:13 07:38 RBC 3.78 L (4.40-5.60) 10*6/uL Hgb 11.7 L (13.0-17.0) g/dL Hct 34.6 L (39.6-50.0) % RDW 14.8 H (11.5-14.5) % MPV 9.1 L (9.5-12.2) fL Eosinophils # 0.46 H (0.04-0.35) 10*3/uL ESR 49 H (0-20) mm/Hr APTT 56.3 H (22.0-30.0) sec Chloride (98-107) mmol/L Carbon Dioxide (22-30) mmol/L Creatinine (0.66-1.25) mg/dL 10/10/24 10/10/24 Range/Units 07:38 07:38 RBC (4.40-5.60) 10*6/uL Hgb (13.0-17.0) g/dL Hct (39.6-50.0) % RDW (11.5-14.5) % MPV (9.5-12.2) fL Eosinophils # (0.04-0.35) 10*3/uL ESR (0-20) mm/Hr APTT 81.1 H (22.0-30.0) sec Chloride 109 H (98-107) mmol/L Carbon Dioxide 21 L (22-30) mmol/L Creatinine 0.57 L (0.66-1.25) mg/dL Microbiology - Last 24 Hours (Table) 10/09/24 16:45 Gram Stain - Preliminary Leg - Left 10/08/24 16:14 Blood Culture - Preliminary Blood Assessment and Plan (1) Leg ulcer, left Current Visit: Yes Status: Acute Code(s): L97.929 - NON-PRS CHRONIC ULC UNSP PRT OF L LOW LEG W UNSP SEVERITY SNOMED Code(s): 71364154 (2) Left leg cellulitis Current Visit: Yes Status: Acute Code(s): L03.116 - CELLULITIS OF LEFT LOWER LIMB SNOMED Code(s): 07659720925995748 Plan: 1patient presented to hospital with worsening wound to the left lower extremity concerning for wound infection and cellulitis with the last local culture positive for Pseudomonas aeruginosa more likely the same pathogen 2--patient will be treated with IV Zosyn while waiting for repeat culture to finalize, local wound care per his parking inspector Dictation was produced using [employer] dictation software. please excuse any g rammatical, word or spelling errors. Time with Patient: Less than 30
--- NOTE | 2024-10-11 16:57 | P.PN ---
Subjective Progress Note Date: 10/11/24 Principal diagnosis: Reason for follow-up is lower extremity ulcer and cellulitis Patient is a 69-year-old male with a past medical history significant for COPD, Deep Vein Thrombosis (DVT), GERD/Reflux, Hypertension in this patient also history of left lower extremity venous stasis ulcer presented to hospital with worsening pain and drainage concerning for wound infection with a recent outpatient culture positive for Pseudomonas. On today's evaluation that is 10/11/2024 the patient continues to be afebrile the patient is breathing comfortably on room air no chest pain shortness of breath or cough no abdominal pain patient denies any worsening pain to the left lower extremity or any drainage. Patient white count 7.63 creatinine 0.5 local culture with Pseudomonas blood culture with staph epi Objective - Vital Signs Vital signs: Vital Signs Temp 98.0 F 10/11/24 15:00 Pulse 67 10/11/24 15:00 Resp 20 10/11/24 15:00 BP 148/73 10/11/24 15:00 Pulse Ox 98 10/11/24 15:00 FiO2 Intake & Output 10/10/24 10/11/24 10/11/24 18:59 06:59 18:59 Intake Total 430.391 205.587 947.11 Output Total 750 500 Balance 430.391 -544.413 447.11 Intake: Intake, IV Titration 72.391 205.587 227.11 Amount Heparin Sod,Pork in 0.45% 72.391 205.587 127.11 NaCl 25,000 unit In 0.45 % NaCl 1 250ml.bag @ 18 UNITS/KG/HR 20.983 mls/hr IV .[id number] [facility] Rx#: [id number] Piperacillin-Tazobactam 3 100 .375 gm In Sodium Chloride 0.9% 100 ml @ 25 mls/hr IVPB Q8H [facility] Rx#: [id number] Oral 358 720 Output: Urine 750 500 Other: Voiding Method Urinal # Voids 2 - Exam GENERAL DESCRIPTION: An elderly male lying in bed in no distress RESPIRATORY SYSTEM: Unlabored breathing , decreased breath sounds at bases HEART: S1 S2 regular rate and rhythm , ABDOMEN: Soft , no tenderness EXTREMITIES: Left lower extremity is currently dressed no drainage on the dressing - Labs CBC & Chem 7: 10/11/24 05:33 10/11/24 05:33 Labs: Abnormal Lab Results - Last 24 Hours (Table) 10/10/24 10/11/24 10/11/24 Range/Units 16:14 05:33 05:33 RBC 4.05 L (4.40-5.60) X 10*6/uL Hgb 12.1 L (13.0-17.0) g/dL Hct 37.3 L (39.6-50.0) % RDW 15.1 H (11.5-14.5) % MPV 9.4 L (9.5-12.2) FL Eosinophils # 0.49 H (0.04-0.35) X 10*3/uL APTT 54.2 H (22.0-30.0) sec Carbon Dioxide 19.3 L (21.6-31.8) mmol/L Creatinine 0.5 L (0.6-1.5) mg/dL Calcium 8.3 L (8.7-10.3) mg/dL Albumin 3.4 L (3.8-4.9) g/dL Globulin 3.4 H (1.6-3.3) g/dL Albumin/Globulin Ratio 1.00 L (1.60-3.17) Ratio 10/11/24 10/11/24 Range/Units 05:33 11:51 RBC (4.40-5.60) X 10*6/uL Hgb (13.0-17.0) g/dL Hct (39.6-50.0) % RDW (11.5-14.5) % MPV (9.5-12.2) FL Eosinophils # (0.04-0.35) X 10*3/uL APTT 77.7 H 57.3 H (22.0-30.0) sec Carbon Dioxide (21.6-31.8) mmol/L Creatinine (0.6-1.5) mg/dL Calcium (8.7-10.3) mg/dL Albumin (3.8-4.9) g/dL Globulin (1.6-3.3) g/dL Albumin/Globulin Ratio (1.60-3.17) Ratio Microbiology - Last 24 Hours (Table) 10/08/24 16:14 Blood Culture Gram Stain - Preliminary Blood Blood Culture - Preliminary Molecular ID 10/09/24 16:45 Gram Stain - Preliminary Leg - Left Wound Culture - Preliminary Pseudomonas aeruginosa Gram Neg Bacilli Assessment and Plan (1) Leg ulcer, left Current Visit: Yes Status: Acute Code(s): L97.929 - NON-PRS CHRONIC ULC UNSP PRT OF L LOW LEG W UNSP SEVERITY SNOMED Code(s): 73128466 (2) Left leg cellulitis Current Visit: Yes Status: Acute Code(s): L03.116 - CELLULITIS OF LEFT LOWER LIMB SNOMED Code(s): 31394536228115292 Plan: 1patient presented to hospital with worsening wound to the left lower extremity concerning for wound infection and cellulitis with the last local culture positive for Pseudomonas aeruginosa more likely the same pathogen 2--patient will be treated with IV Zosyn while waiting for repeat culture which is currently growing Pseudomonas aeruginosa to finalize, local wound care per his public health representative 3positive blood culture with staph epi more likely skin contamination as patient seem to have shown improvement without getting vancomycin however we will repeat blood culture to document clearance Dictation was produced using [employer] dictation software. please excuse any grammatical, word or spelling errors. Time with Patient: Less than 30
[2024-10-11 21:53] LABS: Cardiolipin Ab IgG Interp Negative (Negative); Cardiolipin Ab IgM Interp Negative (Negative)
--- NOTE | 2024-10-12 10:39 | P.PN ---
Subjective Progress Note Date: 10/11/24 Principal diagnosis: Left lower extremity cellulitis Chronic wounds of left lower extremity History of DVT Patient seen at bedside. Patient is resting comfortably. Dressings were changed just prior to the visit. Patient relates that overall, he is feeling very well. He denies any NVFC, SOB, CP, or calf pain. He has no new pedal complaints. Objective - Vital Signs Vital signs: Vital Signs Temp 98.0 F 10/11/24 15:00 Pulse 67 10/11/24 15:00 Resp 20 10/11/24 15:00 BP 148/73 10/11/24 15:00 Pulse Ox 98 10/11/24 15:00 FiO2 Intake & Output 10/10/24 10/11/24 10/11/24 18:59 06:59 18:59 Intake Total 430.391 205.587 947.11 Output Total 750 500 Balance 430.391 -544.413 447.11 Intake: Intake, IV Titration 72.391 205.587 227.11 Amount Heparin Sod,Pork in 0.45% 72.391 205.587 127.11 NaCl 25,000 unit In 0.45 % NaCl 1 250ml.bag @ 18 UNITS/KG/HR 20.983 mls/hr IV .[id number] [facility] Rx#: [id number] Piperacillin-Tazobactam 3 100 .375 gm In Sodium Chloride 0.9% 100 ml @ 25 mls/hr IVPB Q8H [facility] Rx#: [id number] Oral 358 720 Output: Urine 750 500 Other: Voiding Method Urinal # Voids 2 - Constitutional Constitutional Comment(s): Well nourished and well developed obese male. Alert and oriented x3. Not in acute distress. Appropriate mood and affect. Pleasant demeanor. General appearance: Present: cooperative, obese - EENT Eyes: Present: PERRLA - Respiratory Details: Normal unlabored breathing rate and pattern. Symmetrical chest expansion. No wheezing. - Cardiovascular Details: DP and PT pedal pulses diminished to BLE; DP pulses weakly biphasic via handheld Doppler US, LLE PT is weakly triphasic; RLE PT pulse not taken due to presence of open wound to the area. CFT is <3 seconds to all 10 toes. No hair growth noted to the level of the digits bilaterally. Skin temperature is warm to warm from the tibial tuberosity to the level of the toes bilaterally. Rhythm: regular - Gastrointestinal General gastrointestinal: Present: soft. Absent: tenderness - Integumentary Integumentary Comment(s): Full thickness venous stasis ulcers down to level of subcutis and fat layer noted to the lateral left ankle, posterior left leg, and lateral left leg. Wounds measure approx. 9cm x 4cm x 0.3cm, 4cm x 2cm .0.3cm (medial wound); 14cm x 8cm x 0.3cm (posterior wound); and 3 posterior LE wounds measuring 4cm x 3cm x 0.3cm, 4.5cm x 5cm x 0.3cm, and 8cm x 4cm x 0.3cm. Wound bed to all three wounds is fibrogranular with extensive slough and biofilm noted; there is a malodor to the wounds. New superficial thickness wound noted to the right medial ankle, m easuring approx. 4cm x2cm x0.2cm; wound bed is fibrogranular with extensive slough and biofilm. Wound edges do not undermine and no sinus tracts are noted. Wounds do not probe deep. Mild to moderate straw-colored yellow-green serous drainage noted. Periwound to all wounds is edematous and erythematous; surrounding skin to BLE is brawny and edematous, consistent with chronic venous stasis dermatitis and hemosiderin deposition. Integumentary: Present: calor, ulcer - Neurologic Neurologic Comment(s): Epicritic and protopathic sensations are grossly intact to the level of the digits bilaterally. Light touch sensation is grossly intact to the level of the digits bilaterally. - Musculoskeletal Musculoskeletal: Present: strength equal bilaterally - Psychiatric Psychiatric: Present: A&O x's 3, appropriate affect, intact judgment & insight - Labs CBC & Chem 7: 10/11/24 05:33 10/11/24 05:33 Labs: Abnormal Lab Results - Last 24 Hours (Table) 10/11/24 10/11/24 10/11/24 Range/Units 05:33 05:33 05:33 RBC 4.05 L (4.40-5.60) X 10*6/uL Hgb 12.1 L (13.0-17.0) g/dL Hct 37.3 L (39.6-50.0) % RDW 15.1 H (11.5-14.5) % MPV 9.4 L (9.5-12.2) FL Eosinophils # 0.49 H (0.04-0.35) X 10*3/uL APTT 77.7 H (22.0-30.0) sec Carbon Dioxide 19.3 L (21.6-31.8) mmol/L Creatinine 0.5 L (0.6-1.5) mg/dL Calcium 8.3 L (8.7-10.3) mg/dL Albumin 3.4 L (3.8-4.9) g/dL Globulin 3.4 H (1.6-3.3) g/dL Albumin/Globulin Ratio 1.00 L (1.60-3.17) Ratio 10/11/24 Range/Units 11:51 RBC (4.40-5.60) X 10*6/uL Hgb (13.0-17.0) g/dL Hct (39.6-50.0) % RDW (11.5-14.5) % MPV (9.5-12.2) FL Eosinophils # (0.04-0.35) X 10*3/uL APTT 57.3 H (22.0-30.0) sec Carbon Dioxide (21.6-31.8) mmol/L Creatinine (0.6-1.5) mg/dL Calcium (8.7-10.3) mg/dL Albumin (3.8-4.9) g/dL Globulin (1.6-3.3) g/dL Albumin/Globulin Ratio (1.60-3.17) Ratio Microbiology - Last 24 Hours (Table) 10/08/24 16:14 Blood Culture Gram Stain - Preliminary Blood Blood Culture - Preliminary Molecular ID 10/09/24 16:45 Gram Stain - Preliminary Leg - Left Wound Culture - Preliminary Pseudomonas aeruginosa Gram Neg Bacilli Assessment and Plan (1) Cellulitis Narrative/Plan: Reviewed labs; WBC count is 7.63. Patient is currently on IV Zosyn and received prior doses of IV vancomycin and ceftriaxone. Infectious diseases is following. Continue with abx per Dr. Parker's (Infectious Diseases) recommendations. Leg wounds were swabbed for A&A cultures; A&A cultures and sensitivity show Pseudomonas aeruginosa, Beta hemolytic Strep group G, and E. coli. Current Visit: Yes Status: Acute Code(s): L03.90 - CELLULITIS, UNSPECIFIED SNOMED Code(s): 368446126 (2) Venous insufficiency Narrative/Plan: Continue with compression therapy. Patient has SHAUN bandaged to BLE for compression. Continue with SHAUN bandage compression therapy for bilateral venous insufficiency. Current Visit: Yes Status: Acute Code(s): I87.2 - VENOUS INSUFFICIENCY (CHRONIC) (PERIPHERAL) SNOMED Code(s): 69365513 (3) Venous stasis ulcer Narrative/Plan: Dressings were changed at bedside today. Wound swab results show PSeudomonas aeruginosa, Escherichia coli, and Beta hemolytic Strep Group G. Wounds to BLE were changed by RNs. Nursing staff to continue with daily dressing changes consisting of gently debriding wounds with Dakin's solution-soaked gauze, and then applying Opticell AG to the wound beds, covered with gauze pads, abdominal pads, Kerlix rolls, and SHAUN bandages. Patient is to follow up with this provider within a week after discharge for continued wound care. Patient already has home health nurse who changes his dressings on Wednesdays and Fridays. Pain to LLE wounds is well controlled with current pain medication regimen; continue with current pain medications. PAtient is OK to discharge from this provider's perspective as he has plans to follow up outpatient. Current Visit: No Status: Acute Code(s): I83.009 - VARICOSE VEINS OF UNSP LOWER EXTREMITY W ULCER OF UNSP SITE SNOMED Code(s): 29512133 (4) Chronic deep vein thrombosis (DVT) Narrative/Plan: Patient was seen by vascular surgery for the DVT; patient was transitioned to PO Eliquis to be continued indefinitely due to his limited ambulation and chronic venous congestion. Current Visit: No Status: Acute Code(s): I82.509 - CHRONIC EMBOLISM AND THOMBOS UNSP DEEP VN UNSP LOW EXTRM SNOMED Code(s): 90264190595368318 Plan: Discussed plan with patient in detail. Patient will follow up within 1 week of discharge. He verbalized understanding and agreement with the treatment plan as stated. All of his questions were answered to his satisfaction. Patient is OK to discharge from this provider's perspective as he has home health nursing to change dressings at home MW and will follow up at this provider's clinic after discharge. Time with Patient: Less than 30
[2024-10-12 11:11] LABS: Bilirubin,Urine Negative (Negative); Blood,Urine Large (Negative); Budding Yeast,Urine Occasional /hpf; Color,Urine Red; Glucose,Urine (UA) Negative (Negative); Ketones,Urine Negative (Negative); Leukocyte Esterase,Urine Negative (Negative); Nitrite,Urine Negative (Negative); PH, Urine 6.5 (5.0-8.0); Protein,Urine Trace (Negative); RBC,Urine >182 /hpf (0-5); Specific Gravity,Urine 1.020 (1.001-1.035); Urobilinogen,Urine <2.0 mg/dL (<2.0); WBC,Urine 95 /hpf (0-5)
[2024-10-12 13:15] LABS: APTT 53 Sec(s) (<43); APTT 1:1 Mix 44 Sec(s) (<43); Dilute Russell Viper Venom 42 Sec(s) (<44)
--- NOTE | 2024-10-12 14:24 | P.PN ---
Subjective Progress Note Date: 10/12/24 patient is 69-year-old gentleman past medical history significant for DVT, chronic wounds of left lower extremity presented the ER because of worsening left lower extremity wound. Patient history of nonhealing wound of left leg, is following up outpatient by top coater. Patient stated that he was on oral antibiotics but his wounds were not healing. Body Man evaluated him yesterday and recommended patient needs to come to the hospital for further evaluation and treatment. Patient denies any fever chills. There is no complaint of shortness of breath. Patient denies any palpitation. There is no complaint of orthopnea or PND. Denies any nausea, vomiting abdominal pain. Patient denies any com plaint of dizziness. There is no complaint of headache. Because of left lower extremity wound, patient came to the ER Patient admitted to internal medicine service 10/10. Patient seen and examined. States swelling of left lower extremity has improved. 10/11. Patient seen and examined. Still complaining of a lot of pain in left leg 10/12. Patient seen and examined. Complaining of hematuria. Still has leg pain. But improved from before. REVIEW OF SYSTEMS: CONSTITUTIONAL: No fever, no malaise,. CARDIOVASCULAR: No chest pain, no palpitations, no syncope. PULMONARY: No shortness of breath, no cough, GASTROINTESTINAL: No diarrhea, no nausea, no vomiting, no abdominal pain. NEUROLOGICAL: No headaches, no weakness, PHYSICAL EXAMINATION: GENERAL: The patient is alert and oriented x3, not in any acute distress. Well developed, well nourished. HEENT: Pupils are round and equally reacting to light. EOMI. No scleral icterus. No conjunctival pallor. Normocephalic, atraumatic. No pharyngeal erythema. No thyromegaly. CARDIOVASCULAR: S1 and S2 present. No murmurs, rubs, or gallops. PULMONARY: Chest is clear to auscultation, no wheezing or crackles. ABDOMEN: Soft, nontender, nondistended, normoactive bowel sounds. No palpable organomegaly. MUSCULOSKELETAL: No joint swelling or deformity. EXTREMITIES: Left lower extremity wound seen NEUROLOGICAL: Gross neurological examination did not reveal any focal deficits. SKIN: No rashes. Assessment and plan Left lower extremity cellulitis Acute DVT left lower extremity Chronic wounds of left lower extremity History of DVT Monitor vital signs Monitor CBC Monitor CMP Follow-up blood cultures Ultrasound lower extremity did not show DVT in the popliteal vein Continue Eliquis Continue IV Zosyn Podiatry following ID following Hematology-oncology evaluated, recommended changing oral anticoagulation to Eliquis, recommendations noted from 10/11 Labs and medication were reviewed.. Continue same treatment. Continue with symptomatic treatment. Resume home medication. Monitor labs and vitals. DVT and GI prophylaxis. Further recommendations as per clinical course of the patient Dictation was produced using [employer] dictation software. please excuse any grammatical, word or spelling errors. Objective - Vital Signs Vital signs: Vital Signs Temp 97.9 F 10/12/24 07:28 Pulse 65 10/12/24 07:28 Resp 18 10/12/24 07:28 BP 153/69 10/12/24 07:28 Pulse Ox 97 10/12/24 07:28 FiO2 Intake & Output 10/11/24 10/12/24 10/12/24 18:59 06:59 18:59 Intake Total 947.11 240 Output Total 500 1400 300 Balance 447.11 -1400 -60 Intake: Intake, IV Titration 227.11 Amount Heparin Sod,Pork in 0.45% 127.11 NaCl 25,000 unit In 0.45 % NaCl 1 250ml.bag @ 18 UNITS/KG/HR 20.983 mls/hr IV .[id number] [facility] Rx#: [id number] Piperacillin-Tazobactam 3 100 .375 gm In Sodium Chloride 0.9% 100 ml @ 25 mls/hr IVPB Q8H [facility] Rx#: [id number] Oral 720 240 Output: Urine 500 1400 300 Other: Voiding Method Urinal Urinal # Voids 550 - Labs CBC & Chem 7: 10/11/24 05:33 10/11/24 05:33 Labs: Abnormal Lab Results - Last 24 Hours (Table) 10/11/24 10/12/24 Range/Units 15:34 08:19 Lupus Anticoag aPTT 53 H (<43) Sec(s) Lupus Anticoag PTT Mix 44 H (<43) Sec(s) Urine Protein Trace H (Negative) Urine Blood Large H (Negative) Urine RBC >182 H (0-5) /hpf Urine WBC 95 H (0-5) /hpf Urine Yeast (Budding) Occasional H (None) /hpf Microbiology - Last 24 Hours (Table) 10/09/24 16:45 Gram Stain - Final Leg - Left Wound Culture - Final Beta Hemolytic Strep Group G Pseudomonas aeruginosa Escherichia coli 10/08/24 16:14 Blood Culture Gram Stain - Preliminary Blood Blood Culture - Preliminary Staphlyococcus gloryi Molecular ID
--- NOTE | 2024-10-12 16:20 | P.PN ---
Subjective Progress Note Date: 10/12/24 Principal diagnosis: Reason for follow-up is lower extremity ulcer and cellulitis Patient is a 69-year-old male with a past medical history significant for COPD, Deep Vein Thrombosis (DVT), GERD/Reflux, Hypertension in this patient also history of left lower extremity venous stasis ulcer presented to hospital with worsening pain and drainage concerning for wound infection with a recent outpatient culture positive for Pseudomonas. On today's evaluation that is 10/12/2024, Patient is afebrile this morning patient denies having any chest pain shortness of breath or cough, the patient is currently on room air, patient denies any abdominal pain no diarrhea no nausea no vomiting still complaining of some burning pain to the left lower extremity. No new lab has been obtained today local culture with Streptococcus Pseudomonas and E. coli Objective - Vital Signs Vital signs: Vital Signs Temp 97.9 F 10/12/24 07:28 Pulse 65 10/12/24 07:28 Resp 18 10/12/24 07:28 BP 153/69 10/12/24 07:28 Pulse Ox 97 10/12/24 07:28 FiO2 Intake & Output 10/11/24 10/12/24 10/12/24 18:59 06:59 18:59 Intake Total 947.11 Output Total 500 1400 Balance 447.11 -1400 Intake: Intake, IV Titration 227.11 Amount Heparin Sod,Pork in 0.45% 127.11 NaCl 25,000 unit In 0.45 % NaCl 1 250ml.bag @ 18 UNITS/KG/HR 20.983 mls/hr IV .[id number] [facility] Rx#: [id number] Piperacillin-Tazobactam 3 100 .375 gm In Sodium Chloride 0.9% 100 ml @ 25 mls/hr IVPB Q8H [facility] Rx#: [id number] Oral 720 Output: Urine 500 1400 Other: Voiding Method Urinal Urinal - Exam GENERAL DESCRIPTION: An elderly male lying in bed in no distress RESPIRATORY SYSTEM: Unlabored breathing , decreased breath sounds at bases HEART: S1 S2 regular rate and rhythm , ABDOMEN: Soft , no tenderness EXTREMITIES: Left lower extremity is currently dressed no drainage on the dressing - Labs CBC & Chem 7: 10/11/24 05:33 10/11/24 05:33 Labs: Abnormal Lab Results - Last 24 Hours (Table) 10/11/24 10/12/24 Range/Units 11:51 08:19 APTT 57.3 H (22.0-30.0) sec Urine Protein Trace H (Negative) Urine Blood Large H (Negative) Urine RBC >182 H (0-5) /hpf Urine WBC 95 H (0-5) /hpf Urine Yeast (Budding) Occasional H (None) /hpf Microbiology - Last 24 Hours (Table) 10/09/24 16:45 Gram Stain - Final Leg - Left Wound Culture - Final Beta Hemolytic Strep Group G Pseudomonas aeruginosa Escherichia coli 10/08/24 16:14 Blood Culture Gram Stain - Preliminary Blood Blood Culture - Preliminary Staphlyococcus pettenkoferi Molecular ID Assessment and Plan (1) Leg ulcer, left Current Visit: Yes Status: Acute Code(s): L97.929 - NON-PRS CHRONIC ULC UNSP PRT OF L LOW LEG W UNSP SEVERITY SNOMED Code(s): 10161349 (2) Left leg cellulitis Current Visit: Yes Status: Acute Code(s): L03.116 - CELLULITIS OF LEFT LOWER LIMB SNOMED Code(s): 10120132933567859 Plan: 1patient presented to hospital with worsening wound to the left lower extremity concerning for wound infection and cellulitis with the last local culture positive for Pseudomonas aeruginosa more likely the same pathogen 2-positive blood culture with staph epi more likely skin contamination, blood culture repeated currently pending 3local culture currently growing Pseudomonas E. coli and strep with the patient is covered with Zosyn will plan on oral antibiotic on discharge no need for midline or PICC line placement Dictation was produced using [employer] dictation software. please excuse any grammatical, word or spelling errors. Time with Patient: Less than 30
[2024-10-13 02:21] VITALS: RESP 18
[2024-10-13 07:30] VITALS: BP 165/71; PULSE 61; TEMP 97.6
[2024-10-13 07:51] LABS: Basophils # (A) 0.06 X 10*3/uL (0.00-0.10); Basophils % (A) 1.0 %; Eosinophils # (A) 0.27 X 10*3/uL (0.04-0.35); Eosinophils % (A) 4.6 %; HCT 37.1 % (39.6-50.0); HGB 11.9 g/dL (13.0-17.0); Immature Grans, Automated 0.50 %; Lymphocytes # (A) 2.18 X 10*3/uL (0.90-5.00); Lymphocytes % (A) 36.9 %; MCH 30.0 pg (27.0-32.0); MCHC 32.1 g/dL (32.0-37.0); MCV 93.5 FL (80.0-97.0); Monocytes # (A) 0.62 X 10*3/uL (0.20-1.00); Monocytes % (A) 10.5 %; NRBC Per 100 WBC 0 X 10*3/uL (0.00-0.01); Neutrophils # (A) 2.74 X 10*3/uL (1.80-7.70); Neutrophils % (A) 46.5 %; Platelet Count 292 X 10*3/uL (140-440); RBC 3.97 X 10*6/uL (4.40-5.60); RDW 15.3 % (11.5-14.5); WBC 5.90 X 10*3/uL (4.50-10.00)
[2024-10-13 08:15] LABS: ALT 23 U/L (10-49); AST 22 U/L (14-35); Albumin 3.8 g/dL (3.8-4.9); Albumin/Globulin Ratio 1.06 Ratio (1.60-3.17); Alkaline Phosphatase 54 U/L (41-126); Anion Gap 10.80 mmol/L (4.00-12.00); BUN/Creat Ratio 32.20 Ratio (12.00-20.00); Blood Urea Nitrogen 16.1 mg/dL (9.0-27.0); Calcium 8.8 mg/dL (8.7-10.3); Carbon Dioxide 22.2 mmol/L (21.6-31.8); Chloride 105 mmol/L (96-109); Globulin 3.6 g/dL (1.6-3.3); Glucose 90 mg/dL (70-110); Potassium 3.9 mmol/L (3.5-5.5); Sodium 138 mmol/L (135-145); Total Protein 7.4 g/dL (6.2-8.2)
--- NOTE | 2024-10-13 12:57 | P.DS ---
Providers Date of admission: 10/08/24 18:39 Expected date of discharge: 10/13/24 Attending physician: Ezequiel Smith MD Consults: 10/09/24 11:51 Consult Physician Routine Consulting Provider: Elena Jain Consult Reason/Comments: Left foot cellulitis Do you want consulting provider notified?: Yes 10/09/24 14:25 Consult Physician Routine Consulting Provider: Kinjal Mcclain Consult Reason/Comments: Foot ulcer Do you want consulting provider notified?: Yes 10/11/24 08:52 Consult Physician Routine Consulting Provider: Jameel Johnson Consult Reason/Comments: acute DVT on anticoagulation Do you want consulting provider notified?: Yes Primary care physician: Alvin Emerson Hospital Course: Discharge diagnoses; Left lower extremity cellulitis Acute DVT left lower extremity Chronic wounds of left lower extremity History of DVT Hospital course; patient is 69-year-old gentleman past medical history significant for DVT, chronic wounds of left lower extremity presented the ER because of worsening left lower extremity wound. Patient history of nonhealing wound of left leg, is following up outpatient by chief unit forester. Patient stated that he was on oral antibiotics but his wounds were not healing. Automotive Warranty Administrator evaluated him yesterday and recommended patient needs to come to the hospital for further evaluation and treatment. Patient denies any fever chills. There is no complaint of shortness of breath. Patient denies any palpitation. There is no complaint of orthopnea or PND. Denies any nausea, vomiting abdominal pain. Patient denies any complaint of dizziness. There is no complaint of headache. Because of left lower extremity wound, patient came to the ER Patient admitted to internal medicine service 10/10. Patient seen and examined. States swelling of left lower extremity has improved. 10/11. Patient seen and examined. Still complaining of a lot of pain in left leg 10/12. Patient seen and examined. Complaining of hematuria. Still has leg pain. But improved from before. 10/13. Seen and examined. States he feels better. Discussed with ID, they recommend discharging on oral Keflex and Cipro for 10 days. Patient also being discharged on Eliquis 10 mg twice daily for 7 days followed by Eliquis 5 mg twice daily PHYSICAL EXAMINATION: GENERAL: The patient is alert and oriented x3, not in any acute distress. Well developed, well nourished. HEENT: Pupils are round and equally reacting to light. EOMI. No scleral icterus. No conjunctival pallor. Normocephalic, atraumatic. No pharyngeal erythema. No thyromegaly. CARDIOVASCULAR: S1 and S2 present. No murmurs, rubs, or gallops. PULMONARY: Chest is clear to auscultation, no wheezing or crackles. ABDOMEN: Soft, nontender, nondistended, normoactive bowel sounds. No palpable organomegaly. MUSCULOSKELETAL: No joint swelling or deformity. EXTREMITIES: Lower extremity bandages seen NEUROLOGICAL: Gross neurological examination did not reveal any focal deficits. SKIN: No rashes. . Dictation was produced using Mitro dictation software. please excuse any grammatical, word or spelling errors. Patient Condition at Discharge: Fair Plan - Discharge Summary Discharge Rx Participant: No New Discharge Prescriptions: New Apixaban [Eliquis Starter Pack (for VTE)] 5 - 10 mg PO DIRECTED 30 Days #1 each Cephalexin [Keflex] 500 mg PO Q8HR 10 Days #30 cap Continue atenoloL 100 mg PO DAILY HYDROcodone/APAP 10-325MG [Sewell 10-325] 1 tab PO 5XD Gabapentin [Neurontin] 800 mg PO BID PRN PRN Reason: Pain Ciprofloxacin HCl [Cipro] 500 mg PO Q12HR 10 Days #20 tab Ergocalciferol (Vitamin D2) [Drisdol (GEQ) 1,250 MCG (50,000 IU)] 1,250 mcg PO MO Discharge Medication List atenoloL 100 mg PO DAILY 01/19/15 [History] HYDROcodone/APAP 10-325MG [Sewell 10-325] 1 tab PO 5XD 08/21/15 [History] Ergocalciferol (Vitamin D2) [Drisdol (GEQ) 1,250 MCG (50,000 IU)] 1,250 mcg PO MO 10/08/24 [History] Gabapentin [Neurontin] 800 mg PO BID PRN 10/08/24 [History] Apixaban [Eliquis Starter Pack (for VTE)] 5 - 10 mg PO DIRECTED 30 Days #1 each 10/13/24 [Rx] Cephalexin [Keflex] 500 mg PO Q8HR 10 Days #30 cap 10/13/24 [Rx] Ciprofloxacin HCl [Cipro] 500 mg PO Q12HR 10 Days #20 tab 10/13/24 [Rx] Follow up Appointment(s)/Referral(s): Alvin Emerson MD [Primary Care Provider] - 1-2 days [facility] [NON-STAFF] - 1 Week (agency will call 24 - 48 hours after discharge to make an appointment) Elena Jain MD [STAFF PHYSICIAN] - 10/20/24 1:15 pm Activity/Diet/Wound Care/Special Instructions: Pt will return home [facility] will resume services. Discharge Disposition: HOME SELF-CARE
== END 2024-10-13 13:32 | disposition home or self-care (01) | DRG 300 ==
LOC: EC 14:53 → 6NMEDSUR 18:38 → OBSVTOIN 18:39 → 6NMEDSUR 21:50
PROVIDERS: ADMIT Internal Medicine; ATTEND Internal Medicine
DX: I82.432 Acute embolism and thrombosis of left popliteal vein (principal); D68.51 Activated protein C resistance; B96.5 Pseudomonas (aeruginosa) (mallei) (pseudomallei) as the cause of diseases classified elsewhere; J44.9 Chronic obstructive pulmonary disease, unspecified; I10 Essential (primary) hypertension; L97.929 Non-pressure chronic ulcer of unspecified part of left lower leg with unspecified severity; L97.829 Non-pressure chronic ulcer of other part of left lower leg with unspecified severity; L03.115 Cellulitis of right lower limb; L03.116 Cellulitis of left lower limb; I83.028 Varicose veins of left lower extremity with ulcer other part of lower leg; L97.529 Non-pressure chronic ulcer of other part of left foot with unspecified severity; G89.29 Other chronic pain; M54.9 Dorsalgia, unspecified; I87.2 Venous insufficiency (chronic) (peripheral); I87.8 Other specified disorders of veins; Z86.718 Personal history of other venous thrombosis and embolism; Z87.891 Personal history of nicotine dependence; Z79.899 Other long term (current) drug therapy; Z79.01 Long term (current) use of anticoagulants; Z88.5 Allergy status to narcotic agent; Z88.6 Allergy status to analgesic agent
CPT/HCPCS: 36415; 80053; 81001; 82272; 82565; 83605; 84145; 85025; 85610; 85613; 85652; 85730; 86140; 86147; 87040; 87070; 87075; 87077; 87186; 87205; 96365; 96366; 96367; 96375; 99285

== ENCOUNTER 2024-10-24 07:39 | Inpatient (IN) | payer MEDICARE ==
--- NOTE | 2024-10-24 08:18 | ED ---
Extremity Problem HPI - General Chief complaint: Extremity Problem,Nontraumatic Stated complaint: L leg issue Time Seen by Provider: 10/24/24 08:16 Source: patient, family, RN notes reviewed, old records reviewed Mode of arrival: ambulatory Limitations: no limitations - History of Present Illness Initial comments: 69-year-old male presented the ER for evaluation of left lower extremity pain. Patient reports he has a chronic nonhealing wound to his left calf that has been there for "years". He has followed up with oil burner mechanic outpatient. Patient states he was admitted earlier this month for IV antibiotic treatment as he was on oral antibiotics at home without improvement. He states he was diagnosed with a DVT of the left lower extremity at that time and started on Eliquis. He does admit to a history of factor V Leiden. Denies history of diabetes. He reports over the past day he has increased of pain to left lower extremity. He did take prescribed Gillette with mild improvement of pain. Pain persisted which prompted emergency department visit. He admits to mild chills. Denies any fevers, cough, congestion, chest pain, shortness of breath, palpitations, abdominal pain. - Related Data Home Medications Medication Instructions Recorded Confirmed atenoloL 100 mg PO DAILY 01/19/15 10/24/24 HYDROcodone/APAP 10-325MG [Gillette 1 tab PO 5XD 08/21/15 10/24/24 10-325] Ergocalciferol (Vitamin D2) 1,250 mcg PO MO 10/08/24 10/24/24 [Drisdol (GEQ) 1,250 MCG (50,000 IU)] Gabapentin [Neurontin] 800 mg PO BID PRN 10/08/24 10/24/24 Apixaban [Eliquis Starter Pack See Taper PO DIRECTED 10/24/24 10/24/24 (for VTE)] Previous Rx's Medication Instructions Recorded Cephalexin [Keflex] 500 mg PO Q8HR 10 Days #30 cap 10/13/24 Ciprofloxacin HCl [Cipro] 500 mg PO Q12HR 10 Days #20 tab 10/13/24 Allergies Allergy/AdvReac Type Severity Reaction Status Date / Time codeine AdvReac Nausea & Verified 10/24/24 11:27 Vomiting ibuprofen [From Motrin] AdvReac Nausea & Verified 10/24/24 11:27 Vomiting Review of Systems ROS Statement: Those systems with pertinent positive or pertinent negative responses have been documented in the HPI. ROS Other: All systems not noted in ROS Statement are negative. Past Medical History Past Medical History: Blood Disorder, COPD, Deep Vein Thrombosis (DVT), GERD/Reflux, Hypertension Additional Past Medical History / Comment(s): HX FACTOR V clotting disorder, recurrent venous leg ulcers, CHRONIC BACK PAIN. Current lt leg wound. History of Any Multi-Drug Resistant Organisms: MRSA Date of last positivie culture/infection: 02/02/2015 MDRO Source:: Right Leg Past Surgical History: Heart Catheterization Additional Past Surgical History / Comment(s): BLOOD CLOT REMOVED FROM RT LEG. COLONOSCOPY Past Anesthesia/Blood Transfusion Reactions: No Reported Reaction Past Psychological History: No Psychological Hx Reported Smoking Status: Former smoker Past Alcohol Use History: Rare Past Drug Use History: None Reported - Past Family History Mother Family Medical History: Cancer Brother(s) Family Medical History: Cancer Father Family Medical History: Cancer General Exam Limitations: no limitations General appearance: alert, in no apparent distress Respiratory exam: Present: normal lung sounds bilaterally. Absent: respiratory distress, wheezes, rales, rhonchi, stridor Cardiovascular Exam: Present: regular rate, normal rhythm, normal heart sounds. Absent: systolic murmur, diastolic murmur, rubs, gallop, clicks Extremities exam: Present: full ROM, normal capillary refill (2+ palpable DP pulses.), pedal edema (Nonpitting left foot) Neurological exam: Present: alert Skin exam: Present: warm, dry, intact, normal color, other (Multiple soft tissue ulcerations to left calf nearly circumferential. There is a foul odor and purulent drainage. Mild erythema. Right medial malleolus wound without surrounding erythema or purulent drainage.) Course Vital Signs 10/24/24 10/24/24 07:49 10:38 Temperature 98.4 F Pulse Rate 99 69 Respiratory 20 18 Rate Blood Pressure 160/85 162/82 O2 Sat by Pulse 99 99 Oximetry - Reevaluation(s) Reevaluation #1: 10/24/24 11:18 Case discussed with [facility], Dr. Tapia, accepts admission. Medical Decision Making - Medical Decision Making Was pt. sent in by a medical professional or institution (, PA, HOT MIX OPERATOR, urgent care, hospital, or group home...) When possible be specific @ -No Did you speak to anyone other than the patient for history (EMS, parent, family, police, friend...)? What history was obtained from this source @ -Patient's brother, bedside, aiding in HPI and past medical history. Did you review nursing and triage notes (agree or disagree)? Why? @ -I reviewed and agree with nursing and triage notes Were old charts reviewed (outside hosp., previous admission, EMS record, old EKG, old radiological studies, urgent care reports/EKG's, group home records)? Report findings @ -ER visit note from 10-08-2024, patient presented to the ER from oil burner mechanic office Dr. Mcclain for IV antibiotic treatment of left leg wound. Patient was admitted for IV antibiotic treatment. I also reviewed discharge summary on 10-13-2024. Patient found to have DVT of left lower extremity and was started on Eliquis. Patient discharged on a 10-day course of Keflex and ciprofloxacin. I reviewed wound culture susceptibility report from 10-09-2024 beta hemolytic strep group G, Pseudomonas agarose and E. coli found. Zosyn susceptible. Differential Diagnosis (chest pain, altered mental status, abdominal pain women, abdominal pain men, vaginal bleeding, weakness, fever, dyspnea, syncope, headache, dizziness, GI bleed, back pain, seizure, CVA, palpatations, mental health, musculoskeletal)? @ -Differential Musculoskeletal: Muscular strain, contusion, ligament sprain, fracture, arthritis, septic arthritis, bursitis, cellulitis, muscle spasm, nerve compression, DVT, arterial occlusion, herpes zoster, electrolyte abnormality, tumor.... This is not meant to be in all inclusive list EKG interpreted by me (3pts min.). @ -As above X-rays interpreted by me (1pt min.). @ -None done CT interpreted by me (1pt min.). @ -None done U/S interpreted by me (1pt. min.). @ -None done What testing was considered but not performed or refused? (CT, X-rays, U/S, labs)? Why? @ -None What meds were considered but not given or refused? Why? @ -None Did you discuss the management of the patient with other professionals (professionals i.e. , PA, HOT MIX OPERATOR, lab, RT, psych nurse, social science research assistant, battalion chief, teacher, legal compliance officer, correctional case records supervisor)? Give summary @ -Case discussed with [facility], Dr. Tapia accepts admission. Was smoking cessation discussed for >3mins.? @ -No Was critical care preformed (if so, how long)? @ -No Were there social determinants of health that impacted care today? How? (Homelessness, low income, unemployed, alcoholism, drug addiction, transportation, low edu. Level, literacy, decrease access to med. care, senior living, rehab)? @ -No Was there de-escalation of care discussed even if they declined (Discuss DNR or withdrawal of care, Hospice)? DNR status @ -No What co-morbidities impacted this encounter? (DM, HTN, Smoking, COPD, CAD, Cancer, CVA, ARF, Chemo, Hep., AIDS, mental health diagnosis, sleep apnea, morbid obesity)? @ -Factor V Leiden, DVT currently on Eliquis, COPD, GERD, hypertension Was patient admitted / discharged? Hospital course, mention meds given and route, prescriptions, significant lab abnormalities, going to OR and other pertinent info. @ -Admitted. 69-year-old male presented the ER for evaluation of left lower extremity pain. Patient recently admitted and discharged on 10-13-2024 after IV antibiotic treatment of left lower extremity cellulitis. Patient also to found to have DVT at that time and started on Eliquis. He states he has taken antibiotics as prescribed and finished them yesterday. Upon arrival vital signs stable. Patient in no signs acute distress nontoxic-appearing. Bilateral lower extremities neuro vastly intact. Left calf with multiple superficial ulcerations nearly circumferentially. There is a foul odor and purulent drainage noted concerning of infection. Laboratory studies obtained. WBC 8.5. Lactic 1.6. Patient provided with symptomatic treatment in the ER, with improvement. Admission considered and accepted by [facility], Dr. Tapia, for further IV antibiotic treatment of left lower extremity cellulitis. Blood cultures obtained and patient started on Zosyn per susceptibility report completed on 10-09-2024. ID and vascular on consult. Patient educated on today's findings and is agreeable for admission. Admitted in stable condition. Case discussed with ED attending, Dr. Mckeon. Undiagnosed new problem with uncertain prognosis? @ -No Drug Therapy requiring intensive monitoring for toxicity (Heparin, Nitro, Insulin, Cardizem)? @ -No Were any procedures done? @ -No Diagnosis/symptom? @ -Cellulitis/nonhealing wound Acute, or Chronic, or Acute on Chronic? @ -Acute Uncomplicated (without systemic symptoms) or Complicated (systemic symptoms)? @ -Complicated Side effects of treatment? @ -No Exacerbation, Progression, or Severe Exacerbation? @ -No Poses a threat to life or bodily function? How? (Chest pain, USA, MS, pneumonia, PE, COPD, DKA, ARF, appy, cholecystitis, CVA, Diverticulitis, Homicidal, Suicidal, threat to staff... and all critical care pts) @ -Yes limb threatening - Lab Data Result diagrams: 10/24/24 08:49 10/24/24 08:49 Lab Results 10/24/24 10/24/24 10/24/24 Range/Units 08:49 08:49 08:49 WBC 8.57 (4.50-10.00) 10*3/uL RBC 4.41 (4.40-5.60) 10*6/uL Hgb 13.5 (13.0-17.0) g/dL Hct 41.4 (39.6-50.0) % MCV 93.9 (80.0-97.0) fL MCH 30.6 (27.0-32.0) pg MCHC 32.6 (32.0-37.0) g/dL Plt Count 301 (140-440) 10*3/uL MPV 9.2 L (9.5-12.2) fL Immature Gran % (Auto) 0.4 % Neutrophils % 68.9 % Lymphocytes % 19.7 % Monocytes % 8.8 % Eosinophils % 1.6 % Basophils % 0.6 % Immature Gran # 0.03 (0.00-0.04) 10*3/uL Neutrophils # 5.91 (1.80-7.70) 10*3/uL Lymphocytes # 1.69 (0.90-5.00) 10*3/uL Monocytes # 0.75 (0.20-1.00) 10*3/uL Eosinophils # 0.14 (0.04-0.35) 10*3/uL Basophils # 0.05 (0.00-0.10) 10*3/uL Sodium 142 (137-145) mmol/L Potassium 4.7 (3.5-5.1) mmol/L Chloride 111 H (98-107) mmol/L Carbon Dioxide 19 L (22-30) mmol/L Anion Gap 12 mmol/L BUN 29 H (9-20) mg/dL Creatinine 1.00 (0.66-1.25) mg/dL Est GFR (CKD-EPI)AfAm 89 (>60 ml/min/1.73 sqM) Est GFR (CKD-EPI)NonAf 77 (>60 ml/min/1.73 sqM) Glucose 104 H (74-99) mg/dL Plasma Lactic Acid Ramesh 1.6 (0.7-2.0) mmol/L Calcium 9.8 (8.4-10.2) mg/dL Total Bilirubin 0.4 (0.2-1.3) mg/dL AST 38 (17-59) U/L ALT 38 (4-49) U/L Alkaline Phosphatase 63 (38-126) U/L Total Protein 8.3 H (6.3-8.2) g/dL Albumin 4.3 (3.5-5.0) g/dL - EKG Data -: EKG Interpreted by Me EKG Comments: EKG taken at 8: 25 showing a sinus rhythm. No ST segment elevations or depressions. No T wave versions. Artifact present. Ventricular rate 85, TX interval 187, QRS duration 101, QT/QTc 355/397 Disposition Clinical Impression: Left leg cellulitis, Leg pain Disposition: ADMITTED IP TO THIS [facility] Condition: Stable Referrals: Alvin Emerson MD [Primary Care Provider] - 1-2 days Time of Disposition: 11:30
[2024-10-24] MEDS: SODIUM CHLORIDE 0.9% 500 ML 500 ML IV ONE (08:50)
[2024-10-24] MEDS: ONDANSETRON 4 MG/2 ML VIAL IVP STA (08:54)
[2024-10-24] MEDS: HYDROmorphone 1 MG/ML 1 ML SYRINGE IVP STA ×2 (08:56→10:52)
[2024-10-24 09:16] LABS: Basophils # (A) 0.05 10*3/uL (0.00-0.10); Basophils % (A) 0.6 %; Eosinophils # (A) 0.14 10*3/uL (0.04-0.35); Eosinophils % (A) 1.6 %; HCT 41.4 % (39.6-50.0); HGB 13.5 g/dL (13.0-17.0); Lymphocytes # (A) 1.69 10*3/uL (0.90-5.00); Lymphocytes % (A) 19.7 %; MCH 30.6 pg (27.0-32.0); MCHC 32.6 g/dL (32.0-37.0); MCV 93.9 fL (80.0-97.0); Monocytes # (A) 0.75 10*3/uL (0.20-1.00); Monocytes % (A) 8.8 %; Neutrophils # (A) 5.91 10*3/uL (1.80-7.70); Neutrophils % (A) 68.9 %; Platelet Count 301 10*3/uL (140-440); RBC 4.41 10*6/uL (4.40-5.60); RDW 15.3 % (11.5-14.5); WBC 8.57 10*3/uL (4.50-10.00)
[2024-10-24 09:33] LABS: ALT 38 U/L (4-49); AST 38 U/L (17-59); African American GFR (CKD) 89 (>60 ml/min/1.73 sqM); Albumin 4.3 g/dL (3.5-5.0); Alkaline Phosphatase 63 U/L (38-126); Anion Gap 12 mmol/L; Blood Urea Nitrogen 29 mg/dL (9-20); Calcium 9.8 mg/dL (8.4-10.2); Carbon Dioxide 19 mmol/L (22-30); Chloride 111 mmol/L (98-107); Glucose 104 mg/dL (74-99); Non-African American GFR(CKD) 77 (>60 ml/min/1.73 sqM); Potassium 4.7 mmol/L (3.5-5.1); Sodium 142 mmol/L (137-145); Total Protein 8.3 g/dL (6.3-8.2)
[2024-10-24] MEDS: PIPERACILLIN-TAZOBACTAM 3.375 GM in SODIUM CHLORIDE 0.9% 100 ML IVPB STA (10:52)
[2024-10-24] MEDS ORDERED: ONDANSETRON 4 MG/2 ML VIAL IVP PRN (11:27)
[2024-10-24] MEDS ORDERED: NALOXONE 0.4 MG/ML 1 ML VIAL IV PRN (11:27)
[2024-10-24] MEDS ORDERED: ACETAMINOPHEN TAB 325 MG TAB PO PRN (11:29)
[2024-10-24] MEDS: SODIUM CHLORIDE 0.9% 1,000 ML IV SCH (14:29)
[2024-10-24] MEDS: HYDROmorphone 0.5 MG/0.5 ML SYRINGE IVP PRN (14:29)
[2024-10-24] MEDS: HYDROcodone/APAP 10-325MG 1 EACH TAB PO SCH (15:27)
--- NOTE | 2024-10-24 16:37 | HP ---
HISTORY AND PHYSICAL CHIEF COMPLAINT: Nonhealing wound of left calf and as well as leg and severe pain. HISTORY OF PRESENT ILLNESS: This is a 69-year-old gentleman with a past medical history of multiple medical problems including DVT of the left leg, started on Eliquis and as well as factor V Leiden deficiency, is complaining of bilateral leg cellulitis, right leg is apparently healed and the left leg is persisting. There are blotchy areas of nonhealing necrotic areas and the patient came to [facility], admitted for evaluation and treatment. There is no history of fever, rigors, chills at this time. PAST MEDICAL HISTORY: History of factor V Leiden deficiency, history of DVT, history of MRSA. Rest of the chart is also reviewed. HOME MEDICATIONS: Reviewed and include atenolol. Doses and rest of medications reviewed. ALLERGIES: Codeine. FAMILY HISTORY: History of cancer in the family. SOCIAL HISTORY: Previous smoker. REVIEW OF SYSTEMS: Fourteen-point review of systems negative except as mentioned earlier. PHYSICAL EXAMINATION: VITAL SIGNS: Pulse 65, blood pressure 161/70, respirations 18. HEENT: Conjunctivae normal. NECK: No jugular venous distention. No carotid bruit. CARDIOVASCULAR: S1 and S2. ABDOMEN: Soft. EXTREMITIES: Bilateral leg edema, tender and blotchy and necrotic area is also present. LABORATORY DATA: Reviewed. ASSESSMENT: 1. Severe cellulitis and necrotic areas on the left leg. 2. History of bilateral leg cellulitis. 3. History of deep vein thrombosis, left leg. 4. History of factor V Leiden deficiency. 5. History of gastrointestinal bleeding. 6. Hypertension. 7. History of methicillin-resistant Staphylococcus aureus. RECOMMENDATION: This 69-year-old gentleman presented with multiple complex medical issues. We will monitor the patient closely. Continue the current management and treatment otherwise. I recommend Infectious Disease evaluation as well as surgical evaluation. Dr. Tristan has seen the patient previously. Guarded prognosis. Further recommendations to follow. MMODL / IJN: [id number] /
[2024-10-24] MEDS: PIPERACILLIN-TAZOBACTAM 3.375 GM in SODIUM CHLORIDE 0.9% 100 ML IVPB SCH (20:08)
--- NOTE | 2024-10-24 22:05 | P.CONS ---
History of Present Illness - Reason for Consult Consult date: 10/24/24 Left leg cellulitis Requesting physician: Caren Tapia - Chief Complaint Left leg pain and swelling x days - History of Present Illness Patient is a 69-year-old male with a past medical history significant for DVT reflux hypertension COPD history of chronic venous stasis ulcer to left lower extremity with recent admission to the hospital with cellulitis culture positive for Pseudomonas and Prevotella as well as group B strep and E. coli patient was treated with IV Zosyn subsequent discharged home on oral Cipro and Flagyl patient now coming back to the ER concerning for increasing pain and swelling to the left lower extremity patient describes the pain to be mostly sharp moderate and without radiation she did have increasing swelling as well as some drainage but denies any foul-smelling PT no headache or URI symptoms no chest pain shortness of breath or cough no abdominal pain no diarrhea on presentation to the hospital the patient was afebrile no fever Hemoccult subsequently patient was not tachycardic hypotensive or hypoxic he did have a total of 8.57 creatinine 1.0 electrolytes has been normal liver enzymes are normal patient was started on Zosyn infectious disease was consulted for further management of antibiotic therapy Review of Systems Positive point and negatives has been mentioned in the HPI, complete review of systems was performed and all other systems are negative Past Medical History Past Medical History: Blood Disorder, COPD, Deep Vein Thrombosis (DVT), GE RD/Reflux, Hypertension Additional Past Medical History / Comment(s): HX FACTOR V clotting disorder, recurrent venous leg ulcers, CHRONIC BACK PAIN. Current lt leg wound. History of Any Multi-Drug Resistant Organisms: MRSA Year Discovered:: 02/02/2015 MDRO Source:: Right Leg Past Surgical History: Heart Catheterization Additional Past Surgical History / Comment(s): BLOOD CLOT REMOVED FROM RT LEG. COLONOSCOPY Past Anesthesia/Blood Transfusion Reactions: No Reported Reaction Past Psychological History: No Psychological Hx Reported Smoking Status: Former smoker Past Alcohol Use History: Rare Additional Past Alcohol Use History / Comment(s): started smoking at age 15, 2ppd, quit at age 17. Past Drug Use History: None Reported - Past Family History Mother Family Medical History: Cancer Brother(s) Family Medical History: Cancer Father Family Medical History: Cancer Medications and Allergies Home Medications Medication Instructions Recorded Confirmed Type atenoloL 100 mg PO DAILY 01/19/15 10/24/24 History HYDROcodone/APAP 10-325MG [Timbo 1 tab PO 5XD 08/21/15 10/24/24 History 10-325] Ergocalciferol (Vitamin D2) 1,250 mcg PO MO 10/08/24 10/24/24 History [Drisdol (GEQ) 1,250 MCG (50,000 IU)] Gabapentin [Neurontin] 800 mg PO BID PRN 10/08/24 10/24/24 History Cephalexin [Keflex] 500 mg PO Q8HR 10 Days #30 cap 10/13/24 10/24/24 Rx Ciprofloxacin HCl [Cipro] 500 mg PO Q12HR 10 Days #20 tab 10/13/24 10/24/24 Rx Apixaban [Eliquis Starter Pack See Taper PO DIRECTED 10/24/24 10/24/24 History (for VTE)] Allergies Allergy/AdvReac Type Severity Reaction Status Date / Time codeine AdvReac Nausea & Verified 10/24/24 11:27 Vomiting ibuprofen [From Motrin] AdvReac Nausea & Verified 10/24/24 11:27 Vomiting Physical Exam Vitals: Vital Signs Temp Pulse Pulse Resp BP BP Pulse Ox 10/24/24 15:11 97.5 F L 83 16 159/92 97 10/24/24 14:26 65 18 161/79 98 10/24/24 10:38 69 18 162/82 99 10/24/24 07:49 98.4 F 99 20 160/85 99 Intake and Output 10/24/24 10/24/24 10/24/24 06:59 14:59 22:59 Other: Weight 116.573 kg GENERAL DESCRIPTION: Elderly male lying in bed, no distress. No tachypnea or accessory muscle of respiration use. HEENT: Shows Pallor , no scleral icterus. Oral mucous membrane is dry. NECK: Trachea central, no thyromegaly. LUNGS: Unlabored breathing. Clear to auscultation anteriorly. No wheeze or crackle. HEART: S1, S2, regular rate and rhythm. No loud murmur ABDOMEN: Soft, no tenderness , guarding or rigidity, no organomegaly EXTREMITIES: Left lower extremity has some swelling minimal redness dried ulceration no foul-smelling drainage SKIN: No rash, no masses palpable. NEUROLOGICAL: The patient is awake, alert, oriented x3, mood and affect normal. Results CBC & Chem 7: 10/24/24 08:49 10/24/24 08:49 Labs: Abnormal Lab Results - Last 24 Hours (Table) 10/24/24 10/24/24 Range/Units 08:49 08:49 MPV 9.2 L (9.5-12.2) fL Chloride 111 H (98-107) mmol/L Carbon Dioxide 19 L (22-30) mmol/L BUN 29 H (9-20) mg/dL Glucose 104 H (74-99) mg/dL Total Protein 8.3 H (6.3-8.2) g/dL Assessment and Plan (1) Venous stasis ulcer of left thigh Current Visit: Yes Status: Acute Code(s): I83.021 - VARICOSE VEINS OF LEFT LOWER EXTREMITY WITH ULCER OF THIGH; L97.129 - NON-PRESSURE CHRONIC ULCER OF LEFT THIGH WITH UNSP SEVERITY SNOMED Code(s): 631278868 (2) Left leg cellulitis Current Visit: Yes Status: Acute Code(s): L03.116 - CELLULITIS OF LEFT LOWER LIMB SNOMED Code(s): 41622842930728868 Plan: 1patient presented to hospital increasing pain and swelling to the left lower extremity dissipated have history of left leg venous ulcer and second cellulitis with recent culture positive for Pseudomonas strep E. coli and Prevotella 2await vascular surgery evaluation for possible debridement and deep culture 3will empirically treat with a Zosyn 3.375 g every 8 hours We will follow on clinical condition and cultures to further adjust medication if needed Thank you for this consultation we will follow the patient along with you Dictation was produced using [employer] dictation software. please excuse any grammatical, word or spelling errors. Time with Patient: Greater than 30
[2024-10-25 08:05] LABS: Basophils # (A) 0.06 X 10*3/uL (0.00-0.10); Basophils % (A) 0.8 %; Eosinophils # (A) 0.33 X 10*3/uL (0.04-0.35); Eosinophils % (A) 4.2 %; HCT 39.2 % (39.6-50.0); HGB 12.2 g/dL (13.0-17.0); Immature Grans, Automated 0.40 %; Lymphocytes # (A) 2.56 X 10*3/uL (0.90-5.00); Lymphocytes % (A) 32.3 %; MCH 30.2 pg (27.0-32.0); MCHC 31.1 g/dL (32.0-37.0); MCV 97.0 FL (80.0-97.0); Monocytes # (A) 0.70 X 10*3/uL (0.20-1.00); Monocytes % (A) 8.8 %; NRBC Per 100 WBC 0 X 10*3/uL (0.00-0.01); Neutrophils # (A) 4.24 X 10*3/uL (1.80-7.70); Neutrophils % (A) 53.5 %; Platelet Count 288 X 10*3/uL (140-440); RBC 4.04 X 10*6/uL (4.40-5.60); RDW 15.7 % (11.5-14.5); WBC 7.92 X 10*3/uL (4.50-10.00)
[2024-10-25 08:25] LABS: Anion Gap 10.90 mmol/L (4.00-12.00); BUN/Creat Ratio 30.22 Ratio (12.00-20.00); Blood Urea Nitrogen 27.2 mg/dL (9.0-27.0); Calcium 8.9 mg/dL (8.7-10.3); Carbon Dioxide 21.1 mmol/L (21.6-31.8); Chloride 107 mmol/L (96-109); Glucose 97 mg/dL (70-110); Potassium 4.3 mmol/L (3.5-5.5); Sodium 139 mmol/L (135-145)
[2024-10-25] MEDS: ERGOCALCIFEROL 1,250 MCG (50,000 IU) CAPSULE PO SCH (08:52)
--- NOTE | 2024-10-25 11:09 | US ---
EXAMINATION TYPE: US arterial LE multi level DATE OF EXAM: 10/25/2024 9:59 AM Exam done portable COMPARISONS: US 2021 CLINICAL INDICATION: Male, 69 years old with history of Nonhealing wounds, venous stasis; Bilateral l ower leg non healing wound x multiple years, patient refused blood pressure cuffs on his ankles due t o pain from open wounds TECHNIQUE: Systolic pressures were taken of the upper and lower extremity arteries with ankle-brachia l indices and toe brachial indices calculated bilaterally. History of: Smoker: no Hypertension: yes Diabetic: no Hyperlipidemia: no TIA/CVA: no TN: no Vascular Ulcers: yes FINDINGS: Doppler Waveforms: Right: Left: Brachial Artery systolic pressure: Right: not done Left: not done Posterior Tibial artery systolic pressure: Right: not done Left: not done Dorsalis Pedis artery systolic pressure: Right: not done Left: not done Ankle-Brachial Indices: Right: not done Left: not done Toe Brachial Indices: Right: not done Left: not done (Normal > 0.6; Mild 0.35 - 0.59, Moderate 0.12 - 0.34, Severe <0.12) IMPRESSION: Nondiagnostic study [facility], , 10/25/2024 11:07 AM
--- NOTE | 2024-10-25 11:48 | P.GSCN ---
History of Present Illness Consult date: 10/25/24 Reason for Consult: Nonhealing left calf wound, cellulitis Requesting physician: Caren Tapia History of present illness: This is a pleasant 69-year-old with multiple comorbidities including venous insufficiency with venous stasis/venous dermatitis recent diagnosis of left lower extremity deep vein thrombosis and history of lower extremity wounds. Patient came in yesterday morning to the emergency department with concerns of increased left lower extremity pain. Otolaryngology Rep surgery was consulted for left lower extremity wounds and cellulitis. Patient was seen by Dr. Jain with infectious disease and started on IV antibiotics, currently on Zosyn. Patient states that his left lower extremity wounds were really wet when he came in and draining. He has been afebrile. No leukocytosis. Patient is established and follows with Dr. Mcclain for his lower extremity wounds and most recently had debridement in August of this year with Dr. Mcclain. Patient states he has had the wound to his legs for years. He used to have one to his right lower extremity but that has healed up. His left lower extremity wounds he follows outpatient with Dr. Mcclain for wound care. Review of Systems A 14 point review systems was completed all pertinent positives and negatives as stated in the HPI. Past Medical History Past Medical History: Blood Disorder, COPD, Deep Vein Thrombosis (DVT), GERD/Reflux, Hypertension Additional Past Medical History / Comment(s): HX FACTOR V clotting disorder, recurrent venous leg ulcers, CHRONIC BACK PAIN. Current lt leg wound. History of Any Multi-Drug Resistant Organisms: MRSA Year Discovered:: 02/02/2015 MDRO Source:: Right Leg Past Surgical History: Heart Catheterization Additional Past Surgical History / Comment(s): BLOOD CLOT REMOVED FROM RT LEG. COLONOSCOPY Past Anesthesia/Blood Transfusion Reactions: No Reported Reaction Past Psychological History: No Psychological Hx Reported Smoking Status: Former smoker Past Alcohol Use History: Rare Additional Past Alcohol Use History / Comment(s): started smoking at age 15, 2ppd, quit at age 17. Past Drug Use History: None Reported - Past Family History Mother Family Medical History: Cancer Brother(s) Family Medical History: Cancer Father Family Medical History: Cancer Medications and Allergies Home Medications Medication Instructions Recorded Confirmed Type atenoloL 100 mg PO DAILY 01/19/15 10/24/24 History HYDROcodone/APAP 10-325MG [[place] 1 tab PO 5XD 08/21/15 10/24/24 History 10-325] Ergocalciferol (Vitamin D2) 1,250 mcg PO MO 10/08/24 10/24/24 History [Drisdol (GEQ) 1,250 MCG (50,000 IU)] Gabapentin [Neurontin] 800 mg PO BID PRN 10/08/24 10/24/24 History Cephalexin [Keflex] 500 mg PO Q8HR 10 Days #30 cap 10/13/24 10/24/24 Rx Ciprofloxacin HCl [Cipro] 500 mg PO Q12HR 10 Days #20 tab 10/13/24 10/24/24 Rx Apixaban [Eliquis Starter Pack See Taper PO DIRECTED 10/24/24 10/24/24 History (for VTE)] Allergies Allergy/AdvReac Type Severity Reaction Status Date / Time codeine AdvReac Nausea & Verified 10/24/24 11:27 Vomiting ibuprofen [From Motrin] AdvReac Nausea & Verified 10/24/24 11:27 Vomiting Surgical - Exam Vital Signs Temp Pulse Resp BP Pulse Ox 98.4 F 99 20 160/85 99 10/24/24 07:49 10/24/24 07:49 10/24/24 07:49 10/24/24 07:49 10/24/24 07:49 General appearance: The patient is alert, oriented, appears in no acute dis tress. HET: Head is normocephalic and atraumatic. Pupils are equal and reactive. Neck: Supple. Heart: Regular. Lungs: Equal expansion, normal respiratory effort. Abdomen: Soft, nontender, nondistended. Extremities: Bilateral lower extremity swelling. Palpable DP pulses bilaterally. Venous stasis/dermatitis. Left lower extremity medial aspect of ankle with venous ulcer, venous ulcers to lateral side of left calf. Neurological: No focal deficits. Strength and sensation are grossly intact. Results - Labs 10/25/24 04:19 10/25/24 04:19 Abnormal Lab Results - Last 24 Hours (Table) 10/24/24 10/24/24 10/25/24 Range/Units 08:49 08:49 04:19 RBC 4.04 L (4.40-5.60) X 10*6/uL Hgb 12.2 L (13.0-17.0) g/dL Hct 39.2 L (39.6-50.0) % MCHC 31.1 L (32.0-37.0) g/dL RDW 15.7 H (11.5-14.5) % MPV 9.2 L 9.2 L (9.5-12.2) fL Chloride 111 H (98-107) mmol/L Carbon Dioxide 19 L (22-30) mmol/L BUN 29 H (9-20) mg/dL BUN/Creatinine Ratio (12.00-20.00) Ratio Glucose 104 H (74-99) mg/dL Total Protein 8.3 H (6.3-8.2) g/dL 10/25/24 Range/Units 04:19 RBC (4.40-5.60) X 10*6/uL Hgb (13.0-17.0) g/dL Hct (39.6-50.0) % MCHC (32.0-37.0) g/dL RDW (11.5-14.5) % MPV (9.5-12.2) fL Chloride (98-107) mmol/L Carbon Dioxide 21.1 L (22-30) mmol/L BUN 27.2 H (9-20) mg/dL BUN/Creatinine Ratio 30.22 H (12.00-20.00) Ratio Glucose (74-99) mg/dL Total Protein (6.3-8.2) g/dL Diabetes panel 10/24/24 10/25/24 Range/Units 08:49 04:19 Sodium 142 139 (137-145) mmol/L Potassium 4.7 4.3 (3.5-5.1) mmol/L Chloride 111 H 107 (98-107) mmol/L Carbon Dioxide 19 L 21.1 L (22-30) mmol/L BUN 29 H 27.2 H (9-20) mg/dL Creatinine 1.00 0.9 (0.66-1.25) mg/dL Glucose 104 H 97 (74-99) mg/dL Calcium 9.8 8.9 (8.4-10.2) mg/dL AST 38 (17-59) U/L ALT 38 (4-49) U/L Alkaline Phosphatase 63 (38-126) U/L Total Protein 8.3 H (6.3-8.2) g/dL Albumin 4.3 (3.5-5.0) g/dL Calcium panel 10/24/24 10/25/24 Range/Units 08:49 04:19 Calcium 9.8 8.9 (8.4-10.2) mg/dL Albumin 4.3 (3.5-5.0) g/dL Pituitary panel 10/24/24 10/25/24 Range/Units 08:49 04:19 Sodium 142 139 (137-145) mmol/L Potassium 4.7 4.3 (3.5-5.1) mmol/L Chloride 111 H 107 (98-107) mmol/L Carbon Dioxide 19 L 21.1 L (22-30) mmol/L BUN 29 H 27.2 H (9-20) mg/dL Creatinine 1.00 0.9 (0.66-1.25) mg/dL Glucose 104 H 97 (74-99) mg/dL Calcium 9.8 8.9 (8.4-10.2) mg/dL Adrenal panel 10/24/24 10/25/24 Range/Units 08:49 04:19 Sodium 142 139 (137-145) mmol/L Potassium 4.7 4.3 (3.5-5.1) mmol/L Chloride 111 H 107 (98-107) mmol/L Carbon Dioxide 19 L 21.1 L (22-30) mmol/L BUN 29 H 27.2 H (9-20) mg/dL Creatinine 1.00 0.9 (0.66-1.25) mg/dL Glucose 104 H 97 (74-99) mg/dL Calcium 9.8 8.9 (8.4-10.2) mg/dL Total Bilirubin 0.4 (0.2-1.3) mg/dL AST 38 (17-59) U/L ALT 38 (4-49) U/L Alkaline Phosphatase 63 (38-126) U/L Total Protein 8.3 H (6.3-8.2) g/dL Albumin 4.3 (3.5-5.0) g/dL - Imaging Comments: Bilateral lower extremity arterial ultrasound Study incomplete secondary to patient refusing blood pressure cuffs however overall waveforms adequate biphasic. Assessment and Plan Assessment: 1. Chronic left lower extremity venous ulcers 2. Bilateral venous stasis/venous dermatitis 3. Lower extremity venous insufficiency 4. Left lower extremity DVT Plan: 1. Arterial ultrasound obtained and reviewed 2. Recommend consultation to patient's current provider Dr. Mcclain for evaluation of lower extremity wounds 3. Patient has palpable bilateral DP pulses. There is no indication at this time for any vascular surgical intervention. Patient certainly can follow-up in our office as was recommended previously for venous insufficiency and DVT. Thank you for this consultation, we will be on standby if further needed please do not hesitate to call us back. The impression and plan of care has been dictated as directed. I performed a history and examination of this patient, discussed the same with the dictator. I agree with the dictator's note ,documented as a scribe. Any additional findings or plans will be noted.
[2024-10-25] MEDS ORDERED: HYDROmorphone 1 MG/ML 1 ML SYRINGE IM PRN (12:12)
--- NOTE | 2024-10-25 12:31 | P.CONS ---
History of Present Illness - Reason for Consult Consult date: 10/24/24 DVT History Requesting physician: Caren Tapia - History of Present Illness 69 year old man with PMH significant for previous DVT in the right leg and chronic BL LE wounds, venous insufficiency, venous stasis and venous ulcers for which he has followed with wound care and vascular surgery previously. Hematologic history: History of DVT in the right leg for which he had been maintained on Warfarin through his PCP, Dr. Emerson. He states his current dose has been 2 mg daily and has his INR checked once weekly, most recently done 1 week ago. Additionally, he has a questionable history of Factor V Leiden, without known confirmatory labs and the he himself is not 100% certain. He was last seen in this facility at the beginning of the month, at which time he was transitioned from warfarin to Eliquis 5 mg BID. He reports he has been tolerating this well, without complaint. On admission this time he was noted to have lower extremity discomfort and weeping of his lower extremity wounds. He was followed by Dr. Mcclain during that stay as well as outpatient. There are plans for surgical debridement of his lower extremity wounds. Review of Systems REVIEW OF SYSTEMS: All systems reviewed, pertinent positives and negatives noted in HPI. All other symptoms are negative. Past Medical History Past Medical History: Blood Disorder, COPD, Deep Vein Thrombosis (DVT), GERD/Reflux, Hypertension Additional Past Medical History / Comment(s): HX FACTOR V clotting disorder, recurrent venous leg ulcers, CHRONIC BACK PAIN. Current lt leg wound. History of Any Multi-Drug Resistant Organisms: MRSA Year Discovered:: 02/02/2015 MDRO Source:: Right Leg Past Surgical History: Heart Catheterization Additional Past Surgical History / Comment(s): BLOOD CLOT REMOVED FROM RT LEG. COLONOSCOPY Past Anesthesia/Blood Transfusion Reactions: No Reported Reaction Past Psychological History: No Psychological Hx Reported Smoking Status: Former smoker Past Alcohol Use History: Rare Additional Past Alcohol Use History / Comment(s): started smoking at age 15, 2ppd, quit at age 17. Past Drug Use History: None Reported - Past Family History Mother Family Medical History: Cancer Brother(s) Family Medical History: Cancer Father Family Medical History: Cancer Medications and Allergies Home Medications Medication Instructions Recorded Confirmed Type atenoloL 100 mg PO DAILY 01/19/15 10/24/24 History HYDROcodone/APAP 10-325MG [[place] 1 tab PO 5XD 08/21/15 10/24/24 History 10-325] Ergocalciferol (Vitamin D2) 1,250 mcg PO MO 10/08/24 10/24/24 History [Drisdol (GEQ) 1,250 MCG (50,000 IU)] Gabapentin [Neurontin] 800 mg PO BID PRN 10/08/24 10/24/24 History Cephalexin [Keflex] 500 mg PO Q8HR 10 Days #30 cap 10/13/24 10/24/24 Rx Ciprofloxacin HCl [Cipro] 500 mg PO Q12HR 10 Days #20 tab 10/13/24 10/24/24 Rx Apixaban [Eliquis Starter Pack See Taper PO DIRECTED 10/24/24 10/24/24 History (for VTE)] Allergies Allergy/AdvReac Type Severity Reaction Status Date / Time codeine AdvReac Nausea & Verified 10/24/24 11:27 Vomiting ibuprofen [From Motrin] AdvReac Nausea & Verified 10/24/24 11:27 Vomiting Physical Exam Vitals: Vital Signs Temp Pulse Pulse Resp BP BP BP 10/25/24 07:10 97.9 F 70 16 151/69 10/25/24 00:55 98.4 F 76 17 164/66 10/24/24 19:25 97.8 F 69 16 151/73 10/24/24 15:11 97.5 F L 83 16 159/92 10/24/24 14:26 65 18 161/79 Pulse Ox 10/25/24 07:10 98 10/25/24 00:55 96 10/24/24 19:25 97 10/24/24 15:11 97 10/24/24 14:26 98 Intake and Output 10/24/24 10/25/24 10/25/24 22:59 06:59 14:59 Intake Total 240 Output Total 550 700 Balance 240 -550 -700 Intake: Oral 240 Output: Urine 550 700 Other: Voiding Method Urinal Urinal # Voids 1 Physical Exam: General: nontoxic, no distress, appears at stated age Derm: warm, dry, intact Head: atraumatic, normocephalic, symmetric Eyes: EOMI, anicteric sclera Mouth: no lip lesion, mucus membranes moist Cardiovascular: S1 S2 reg, no murmur, rubs, or gallops Lungs: CTA bilateral, no rales, no accessory muscle use Abdominal: soft, non-tender to palpataion, no appreciable organomegaly Extremities: BL LE wrapped in fresh bandages, with known poor healing woulds and evidence of venous stasis Neuro: Alert, Oriented, CNII-XII grossly intact, gait normal Psych: well appearing, appropriate affect Results CBC & Chem 7: 10/25/24 13:00 10/25/24 04:19 Labs: Abnormal Lab Results - Last 24 Hours (Table) 10/25/24 10/25/24 Range/Units 04:19 04:19 RBC 4.04 L (4.40-5.60) X 10*6/uL Hgb 12.2 L (13.0-17.0) g/dL Hct 39.2 L (39.6-50.0) % MCHC 31.1 L (32.0-37.0) g/dL RDW 15.7 H (11.5-14.5) % MPV 9.2 L (9.5-12.2) FL Carbon Dioxide 21.1 L (21.6-31.8) mmol/L BUN 27.2 H (9.0-27.0) mg/dL BUN/Creatinine Ratio 30.22 H (12.00-20.00) Ratio Assessment and Plan Assessment: #History of DVT, currently managed with Eliquis 5 mg BID, likely secondary to poor wound healing and limited ambulation - During his stay earlier in the month transitioned from Warfarin to Eliquis 5 m g BID, which he has tolerated without complaint - For surgical debridement tomorrow, or within the next couple of days - Plan is to hold Eliquis at this time in preparation for surgical intervention - Will initiate IV heparin drip, intermediate dose, can be discontinued 4 hours prior to surgery - Resume Eliquis following surgery, consider later in the day, if no evidence or signs of bleeding - Considering the chronicity of his venous condition and limited ambulation, recommendation to continue with anticoagulation indefinitely Patient seen with resident and agree with assessment and plan as outlined above. Reji Mccartney MD
[2024-10-25] MEDS ORDERED: HEPARIN SODIUM 1,000 UN/ML (10ML VL) IV PRN (12:46)
[2024-10-25] MEDS: HYDROmorphone 1 MG/ML 1 ML SYRINGE IVP PRN (13:06)
[2024-10-25 13:29] LABS: Basophils # (A) 0.07 10*3/uL (0.00-0.10); Basophils % (A) 0.7 %; Eosinophils # (A) 0.34 10*3/uL (0.04-0.35); Eosinophils % (A) 3.4 %; HCT 36.8 % (39.6-50.0); HGB 12.0 g/dL (13.0-17.0); Lymphocytes # (A) 1.90 10*3/uL (0.90-5.00); Lymphocytes % (A) 19.3 %; MCH 31.1 pg (27.0-32.0); MCHC 32.6 g/dL (32.0-37.0); MCV 95.3 fL (80.0-97.0); Monocytes # (A) 0.73 10*3/uL (0.20-1.00); Monocytes % (A) 7.4 %; Neutrophils # (A) 6.79 10*3/uL (1.80-7.70); Neutrophils % (A) 68.9 %; Platelet Count 291 10*3/uL (140-440); RBC 3.86 10*6/uL (4.40-5.60); RDW 15.2 % (11.5-14.5); WBC 9.86 10*3/uL (4.50-10.00)
[2024-10-25 13:41] LABS: INR 1.0 (<1.2); Partial Thromboplastin Time 22.5 sec (22.0-30.0); Prothrombin Time 11.4 sec (10.0-12.5)
[2024-10-25] MEDS: HEPARIN SODIUM,PORCINE/D5W 25,000 UNIT in EMPTY BAG 1 BAG IV SCH (15:44)
--- NOTE | 2024-10-25 18:46 | P.CONS ---
History of Present Illness - Reason for Consult Consult date: 10/25/24 Left leg wounds with pain and weeping - Chief Complaint Venous stasis ulcers, left leg; pain to left leg - History of Present Illness Patient is a pleasant 69 year-old male with PMH of COPD, DVT, and venous stasis ulcers to BLE. Patient is being followed by this provider for venous stasis ulcers to the LLE. Patient presented to the [facility] ED on 10/24 for worsening pain and drainage to the LLE wounds. Patient denied any NVFC, SOB, or CP upon presenting to the ED. Patient was most recently admitted on 10/08 and was discharged on 10/13 for cellulitis and pain to the LLE. During that previous admission, the patient's wound cultures grew Pseudomonas, Prevotella, group B. Strep, and E. coli. Patient was given IV abx and was discharged with oral abx. Patient was last seen in clinic on 10/19; his wounds appeared healthy, and no signs of infection were noted during the dressing change. During this admission, patient denies any malodor or purulent drainage to the wounds. Patient has no new pedal complaints at this time. Review of Systems Constitutional: Denies chills, Denies fever, Denies sweats Eyes: denies blurred vision, denies decreased vision, denies diplopia Ears: deny: tinnitus Ears, nose, mouth and throat: Denies headache, Denies hoarseness, Denies vertigo Cardiovascular: Reports leg edema, Denies chest pain, Denies claudication, Denies lightheadedness, Denies palpitations, Denies shortness of breath Respiratory: Denies cough, Denies dyspnea, Denies wheezing Gastrointestinal: Denies abdominal pain, Denies constipation, Denies diarrhea, Denies nausea, Denies vomiting Musculoskeletal: Reports as per HPI (Pain to LLE) Musculoskeletal: bilateral: as per HPI (Pain to left leg) Integumentary: Reports as per HPI, Reports foot/leg ulcers (Venous stasis ulcers to left leg) Neurological: Denies headaches, Denies loss of vision, Denies numbness, Denies paralysis, Denies paresthesias, Denies tingling, Denies weakness Past Medical History Past Medical History: Blood Disorder, COPD, Deep Vein Thrombosis (DVT), GERD/Reflux, Hypertension Additional Past Medical History / Comment(s): HX FACTOR V clotting disorder, r ecurrent venous leg ulcers, CHRONIC BACK PAIN. Current lt leg wound. History of Any Multi-Drug Resistant Organisms: MRSA Year Discovered:: 02/02/2015 MDRO Source:: Right Leg Past Surgical History: Heart Catheterization Additional Past Surgical History / Comment(s): BLOOD CLOT REMOVED FROM RT LEG. COLONOSCOPY Past Anesthesia/Blood Transfusion Reactions: No Reported Reaction Past Psychological History: No Psychological Hx Reported Smoking Status: Former smoker Past Alcohol Use History: Rare Additional Past Alcohol Use History / Comment(s): started smoking at age 15, 2ppd, quit at age 17. Past Drug Use History: None Reported - Past Family History Mother Family Medical History: Cancer Brother(s) Family Medical History: Cancer Father Family Medical History: Cancer Medications and Allergies Home Medications Medication Instructions Recorded Confirmed Type atenoloL 100 mg PO DAILY 01/19/15 10/24/24 History HYDROcodone/APAP 10-325MG [[place] 1 tab PO 5XD 08/21/15 10/24/24 History 10-325] Ergocalciferol (Vitamin D2) 1,250 mcg PO MO 10/08/24 10/24/24 History [Drisdol (GEQ) 1,250 MCG (50,000 IU)] Gabapentin [Neurontin] 800 mg PO BID PRN 10/08/24 10/24/24 History Cephalexin [Keflex] 500 mg PO Q8HR 10 Days #30 cap 10/13/24 10/24/24 Rx Ciprofloxacin HCl [Cipro] 500 mg PO Q12HR 10 Days #20 tab 10/13/24 10/24/24 Rx Apixaban [Eliquis Starter Pack See Taper PO DIRECTED 10/24/24 10/24/24 History (for VTE)] Allergies Allergy/AdvReac Type Severity Reaction Status Date / Time codeine AdvReac Nausea & Verified 10/24/24 11:27 Vomiting ibuprofen [From Motrin] AdvReac Nausea & Verified 10/24/24 11:27 Vomiting Physical Exam Vitals: Vital Signs Temp Pulse Resp BP Pulse Ox 10/25/24 14:42 98.1 F 67 16 129/70 96 10/25/24 07:10 97.9 F 70 16 151/69 98 10/25/24 00:55 98.4 F 76 17 164/66 96 10/24/24 19:25 97.8 F 69 16 151/73 97 Intake and Output 10/25/24 10/25/24 10/25/24 06:59 14:59 22:59 Output Total 550 900 Balance -550 -900 Output: Urine 550 900 Other: Voiding Method Urinal - Constitutional Well nourished and well developed obese male. Alert and oriented x3. Not in acute distress. Appropriate mood and affect. Pleasant demeanor. General appearance: cooperative, obese - EENT Eyes: PERRLA, normal appearance - Respiratory Normal unlabored breathing rate and pattern. Symmetrical chest expansion. No wheezing. - Cardiovascular DP and PT pedal pulses are 1/4 to BLE; RLE PT pulse not taken due to presence of open wound to the area. CFT is <3 seconds to all 10 toes. No hair growth noted to the level of the digits bilaterally. Skin temperature is warm to warm from the tibial tuberosity to the level of the toes bilaterally. Non-pitting edema noted to BLE. Rhythm: regular - Gastrointestinal General gastrointestinal: soft, no tenderness - Integumentary Full thickness venous stasis ulcers to level of subcutaneous tissues and fat layer noted to the medial left leg, posterior left leg, and lateral left leg. Wounds measure approx. 8cm x 4cm x 0.3cm, 4cm x 2cm .0.3cm (medial wound); 12cm x 8cm x 0.3cm (posterior wound); and 3 posterior LE wounds measuring 4cm x 3cm x 0.3cm, 5cm x 5cm x 0.3cm, and 8cm x 4cm x 0.3cm. Wound bed to all three wounds is fibrogranular with extensive dried crusting, slough, and biofilm noted; there is no malodor noted. Wound edges do not undermine and no sinus tracts are noted. Wounds do not probe deep. Minimal to moderate straw-colored serous drain age noted. Periwound to all wounds is edematous and erythematous. There is an epithelializing wound noted to the medial right ankle; wound is crusted over; no surrounding erythema or drainage noted. Surrounding skin to BLE is brawny and edematous, consistent with chronic venous stasis dermatitis and hemosiderin deposition. Integumentary: calor, no cellulitis, ulcer - Neurologic Light touch sensation is grossly intact to the level of the digits bilaterally. - Musculoskeletal Muscle strength is 5/5 and symmetric for all muscle groups crossing the ankle joint bilaterally. Foot and ankle are in grossly rectus alignment bilaterally. Pain with palpation of the left leg near wounds. Musculoskeletal: strength equal bilaterally - Psychiatric Psychiatric: A&O x's 3, appropriate affect, intact judgment & insight Results CBC & Chem 7: 10/25/24 13:00 10/25/24 04:19 Labs: Abnormal Lab Results - Last 24 Hours (Table) 10/25/24 10/25/24 10/25/24 Range/Units 04:19 04:19 13:00 RBC 4.04 L 3.86 L (4.40-5.60) X 10*6/uL Hgb 12.2 L 12.0 L (13.0-17.0) g/dL Hct 39.2 L 36.8 L (39.6-50.0) % MCHC 31.1 L (32.0-37.0) g/dL RDW 15.7 H 15.2 H (11.5-14.5) % MPV 9.2 L 9.0 L (9.5-12.2) FL Carbon Dioxide 21.1 L (21.6-31.8) mmol/L BUN 27.2 H (9.0-27.0) mg/dL BUN/Creatinine Ratio 30.22 H (12.00-20.00) Ratio Microbiology - Last 24 Hours (Table) 10/24/24 08:40 Blood Culture - Preliminary Blood Assessment and Plan (1) Leg ulcer, left Current Visit: No Status: Acute Code(s): L97.929 - NON-PRS CHRONIC ULC UNSP PRT OF L LOW LEG W UNSP SEVERITY SNOMED Code(s): 10344499 (2) Left leg cellulitis Current Visit: Yes Status: Acute Code(s): L03.116 - CELLULITIS OF LEFT LOWER LIMB SNOMED Code(s): 15762152488587746 (3) Leg pain Current Visit: Yes Status: Acute Code(s): M79.606 - PAIN IN LEG, UNSPECIFIED SNOMED Code(s): 66952812 (4) Chronic deep vein thrombosis (DVT) Current Visit: No Status: Acute Code(s): I82.509 - CHRONIC EMBOLISM AND THOMBOS UNSP DEEP VN UNSP LOW EXTRM SNOMED Code(s): 49415147913403354 (5) Venous insufficiency Current Visit: No Status: Acute Code(s): I87.2 - VENOUS INSUFFICIENCY (CHRONIC) (PERIPHERAL) SNOMED Code(s): 96081606 Plan: 1) Patient was seen and evaluated. Reviewed labs; WBC count is 9.86. Patient relates that the wounds are more painful when dried due to the rigid crusting. Applied Medihoney and Medihoney sheets to the LLE wounds and covered with Telfa pads, abdominal pads, Kerlix rolls and SHAUN bandage. Continue with daily wound dressings consisting of Medihoney and Medihoney sheets to debride wounds until surgical debridement (with possible Theraskin grafting) can be arranged. Surgical debridement may be scheduled outpatient, as Theraskin is not kept in stock at [facility] and will have to be ordered. This provider will be leaving the [place] area later this week; patient is aware of this. Dr. Otilio Joel, DPM, this provider's associate who has seen the patient in the past, will see the patient later this week (possibly Friday) on this provider's behalf to discuss surgical debridement to LLE. 2) Dr. Jain, Infectious Diseases specialist, is following. Patient is currently on IV Zosyn per ID recommendations; continue with IV abx per ID recommendations. 3) Patient's LLE pain is well controlled with current pain medication regimen; continue with current pain medication regimen. 4) Patient was on Eliquis but was switched to IV heparin in case of surgical intervention; continue with heparin for now, as surgical debridement may be scheduled during this inpatient visit pending Dr. Joel' availability. 5) Continue with SHAUN bandages to BLE for compression. Patient verbalized understanding and agreement with the treatment plan as stated. All of his questions were answered to his satisfaction. Dr. Tapia, thank you for the consult! Time with Patient: Greater than 30
[2024-10-26 08:24] LABS: Anion Gap 11.40 mmol/L (4.00-12.00); BUN/Creat Ratio 28.14 Ratio (12.00-20.00); Basophils # (A) 0.05 X 10*3/uL (0.00-0.10); Basophils % (A) 0.6 %; Blood Urea Nitrogen 19.7 mg/dL (9.0-27.0); Calcium 8.8 mg/dL (8.7-10.3); Carbon Dioxide 22.6 mmol/L (21.6-31.8); Chloride 105 mmol/L (96-109); Eosinophils # (A) 0.45 X 10*3/uL (0.04-0.35); Eosinophils % (A) 5.7 %; Glucose 97 mg/dL (70-110); HCT 38.1 % (39.6-50.0); HGB 11.9 g/dL (13.0-17.0); Immature Grans, Automated 0.30 %; Lymphocytes # (A) 3.40 X 10*3/uL (0.90-5.00); Lymphocytes % (A) 42.9 %; MCH 30.1 pg (27.0-32.0); MCHC 31.2 g/dL (32.0-37.0); MCV 96.5 FL (80.0-97.0); Monocytes # (A) 0.58 X 10*3/uL (0.20-1.00); Monocytes % (A) 7.3 %; NRBC Per 100 WBC 0 X 10*3/uL (0.00-0.01); Neutrophils # (A) 3.42 X 10*3/uL (1.80-7.70); Neutrophils % (A) 43.2 %; Platelet Count 275 X 10*3/uL (140-440); Potassium 4.2 mmol/L (3.5-5.5); RBC 3.95 X 10*6/uL (4.40-5.60); RDW 15.1 % (11.5-14.5); Sodium 139 mmol/L (135-145); WBC 7.92 X 10*3/uL (4.50-10.00)
--- NOTE | 2024-10-26 12:49 | PN ---
PROGRESS NOTE DATE OF SERVICE: 10/25/2024 SUBJECTIVE: This is a 69-year-old gentleman, who was admitted with severe cellulitis and necrotic areas of the leg on both sides, left more than right. It is being closely monitored. No chest pain. No palpitation. PHYSICAL EXAMINATION: VITAL SIGNS: Pulse 70, blood pressure 151/69, respirations 16. CHEST: Clear to auscultation. CARDIOVASCULAR: S1, S2. ABDOMEN: Soft. EXTREMITIES: Legs, bilateral leg swelling and edema. Left leg is crusting and also some necrotic blackish area is also present. LABORATORY DATA: Reviewed. ASSESSMENT: 1. Severe cellulitis and necrotic areas of the left leg with failure of outpatient treatment. 2. History of bilateral leg cellulitis. 3. History of deep venous thrombosis of the left leg. 4. History of factor V Leiden deficiency. 5. History of GI bleed. 6. Hypertension. 7. History of methicillin-resistant Staphylococcus aureus. RECOMMENDATIONS AND DISCUSSION: Recommend to continue current management and symptomatic treatment. Continue with empiric antibiotics, otherwise multiple consultations including Vascular Surgery as well as Infectious Disease. Guarded prognosis. Further recommendations to follow. See orders. MMODL / IJN: [id number] /
--- NOTE | 2024-10-26 14:59 | PN ---
PROGRESS NOTE DATE OF SERVICE: 10/26/2024 SUBJECTIVE: This 69-year-old gentleman admitted with significant cellulitis of the both legs, left more than right, is being evaluated by Vascular Surgery as well as Podiatry. Previous cultures polymicrobial. OBJECTIVE: VITAL SIGNS: Pulse is 64, blood pressure 163/80, respirations 17. CHEST: Clear to auscultation. CARDIOVASCULAR: S1, S2. ABDOMEN: Soft. LEGS: Significant cellulitis. LABORATORY DATA: Labs are reviewed. ASSESSMENT: 1. Severe cellulitis of the left leg with previous polymicrobial keena. 2. History of bilateral leg cellulitis. 3. History of deep venous thrombosis of the left leg. 4. History of factor V Leiden deficiency. 5. History of GI bleed. 6. Hypertension. 7. History of methicillin-resistant Staphylococcus aureus. RECOMMENDATIONS AND DISCUSSION: Recommend to continue current management and continue symptomatic treatment. Otherwise, the patient is on broad-spectrum IV antibiotics, IV heparin in case of surgery. We will recommend repeat labs. Prognosis guarded because of multiple complex medical conditions. MMODL / IJN: [id number] / [facility]ITAL[facility]auri
--- NOTE | 2024-10-26 16:13 | P.PN ---
Subjective Progress Note Date: 10/26/24 Principal diagnosis: Venous stasis ulcers, left leg; pain to left leg Patient sen at bedside tis afternoon. Patient is resting comfortably on bed. He states that he is feeling very well overall. Patient endorses mild andrews to the left leg, but states that he is due for IV pain medication and that his pain is well controlled with the pain medications he is on right now. Patient denies any NVFC, SOB, CP, or calf tenderness. He has no new pedal complaints at this time. Objective - Vital Signs Vital signs: Vital Signs Temp 98.1 F 10/26/24 13:40 Pulse 63 10/26/24 13:40 Resp 17 10/26/24 13:40 BP 143/79 10/26/24 13:40 Pulse Ox 95 10/26/24 13:40 FiO2 Intake & Output 10/25/24 10/26/24 10/26/24 18:59 06:59 18:59 Intake Total 472 239.267 480 Output Total 900 400 Balance -428 -160.733 480 Intake: Intake, IV Titration 239.267 Amount Heparin Sodium,Porcine/ 239.267 D5w 25,000 unit In Empty Bag 1 bag @ 15 UNIT/KG/HR 17.486 mls/hr IV . [id number] [facility] Rx#:[id number] Oral 472 480 Output: Urine 900 400 Other: Voiding Method Urinal Urinal Urinal # Voids 2 - Constitutional Constitutional Comment(s): Well nourished obese male. Alert and oriented x3. Not in acute distress. Pleasant demeanor. Appropriate mood and affect. General appearance: Present: cooperative, no acute distress, obese - EENT Eyes: Present: PERRLA, normal appearance - Respiratory Details: Normal unlabored breathing rate and pattern. Symmetrical chest expansion. No wheezing. - Cardiovascular Details: DP pulses 1/4 bilaterally and left PT pulse is 1/4. RLE PT pulse not taken due to presence of open wound to the area. CFT is <3 seconds to all 10 toes. No hair growth noted to the level of the digits bilaterally. Skin temperature is warm to warm from the tibial tuberosity to the level of the toes bilaterally. Non-pitting edema noted to BLE. Rhythm: regular - Gastrointestinal General gastrointestinal: Present: soft. Absent: tenderness - Integumentary Integumentary Comment(s): Full thickness venous stasis ulcers to level of subcutaneous tissues and fat layer noted to the medial left leg, posterior left leg, and lateral left leg. Wounds measure approx. 8cm x 4cm x 0.3cm, 4cm x 2cm .0.3cm (medial wound); 12cm x 8cm x 0.3cm (posterior wound); and 3 posterior LE wounds measuring 4cm x 3cm x 0.3cm, 5cm x 5cm x 0.3cm, and 8cm x 4cm x 0.3cm. Wound bed to all three wounds is mostly granular with some fibrotic tissues noted; there is mild slough and biofilm noted; there is no malodor noted. Wound beds appear improved compared to yesterday. Wound edges do not undermine and no sinus tracts are noted. Wounds do not probe deep. Minimal to moderate straw-colored serous drainage noted. Periwound to all wounds is edematous and erythematous. There is an epithelializing wound noted to the medial right ankle; wound is crusted over; no surrounding erythema or drainage noted. Surrounding skin to BLE is brawny and e dematous, consistent with chronic venous stasis dermatitis and hemosiderin deposition. Integumentary: Present: calor, ulcer. Absent: cellulitis - Neurologic Neurologic Comment(s): Epicritic and protopathic sensations are grossly intact to the level of the digits bilaterally. Light touch sensation is grossly intact to the level of the digits bilaterally. - Musculoskeletal Musculoskeletal Comment(s): Muscle strength is 5/5 and symmetric for all muscle groups crossing the ankle joint bilaterally. Foot and ankle are in grossly rectus alignment bilaterally. Pain with palpation of the left leg near wounds. Musculoskeletal: Present: strength equal bilaterally - Psychiatric Psychiatric: Present: A&O x's 3, appropriate affect, intact judgment & insight - Labs CBC & Chem 7: 10/26/24 06:03 10/26/24 06:03 Labs: Abnormal Lab Results - Last 24 Hours (Table) 10/25/24 10/25/24 10/26/24 Range/Units 19:17 21:39 06:03 RBC 3.95 L (4.40-5.60) X 10*6/uL Hgb 11.9 L (13.0-17.0) g/dL Hct 38.1 L (39.6-50.0) % MCHC 31.2 L (32.0-37.0) g/dL RDW 15.1 H (11.5-14.5) % MPV 9.2 L (9.5-12.2) FL Eosinophils # 0.45 H (0.04-0.35) X 10*3/uL APTT 34.9 H 41.0 H (22.0-30.0) sec BUN/Creatinine Ratio (12.00-20.00) Ratio 10/26/24 10/26/24 Range/Units 06:03 06:03 RBC (4.40-5.60) X 10*6/uL Hgb (13.0-17.0) g/dL Hct (39.6-50.0) % MCHC (32.0-37.0) g/dL RDW (11.5-14.5) % MPV (9.5-12.2) FL Eosinophils # (0.04-0.35) X 10*3/uL APTT 56.8 H (22.0-30.0) sec BUN/Creatinine Ratio 28.14 H (12.00-20.00) Ratio Microbiology - Last 24 Hours (Table) 10/25/24 16:55 Gram Stain - Preliminary Ankle - Left 10/24/24 08:40 Blood Culture - Preliminary Blood Assessment and Plan (1) Leg ulcer, left Current Visit: No Status: Acute Code(s): L97.929 - NON-PRS CHRONIC ULC UNSP PRT OF L LOW LEG W UNSP SEVERITY SNOMED Code(s): 02463498 (2) Left leg cellulitis Current Visit: Yes Status: Acute Code(s): L03.116 - CELLULITIS OF LEFT LOWER LIMB SNOMED Code(s): 54771450586932666 (3) Leg pain Current Visit: Yes Status: Acute Code(s): M79.606 - PAIN IN LEG, UNSPECIFIED SNOMED Code(s): 18060031 (4) Chronic deep vein thrombosis (DVT) Current Visit: No Status: Acute Code(s): I82.509 - CHRONIC EMBOLISM AND THOMBOS UNSP DEEP VN UNSP LOW EXTRM SNOMED Code(s): 51889892139589209 (5) Venous insufficiency Current Visit: No Status: Acute Code(s): I87.2 - VENOUS INSUFFICIENCY (CHRONIC) (PERIPHERAL) SNOMED Code(s): 00742844 Plan: 1) Patient was seen and evaluated. Reviewed labs; WBC count is 7.92. Swab cultures taken on 10/25 are pending. Changed dressings to LLE at today's visit. Applied Medihoney and Medihoney sheets to the LLE wounds and covered with Telfa pads, abdominal pads, Kerlix rolls and SHAUN bandage. Continue with daily wound dressings consisting of Medihoney and Medihoney sheets to debride wounds until surgical debridement (with possible Theraskin grafting) can be arranged. Wounds clinically appear improved after starting Medihoney dressing changes. Surgical debridement may be scheduled outpatient, as Theraskin is not kept in stock at [facility] and will have to be ordered. Dr. Otilio Joel, RASHEEDA, this provider's associate who has seen the patient in the past, will see the patient this , 10/28 for continuity of care. 2) Dr. Jain, Infectious Diseases specialist, is following. Patient is currently on IV Zosyn per ID recommendations; continue with IV abx per ID recommendations. 3) Patient's LLE pain is well controlled with current pain medication regimen; continue with current pain medication regimen. 4) Patient was on Eliquis but was switched to IV heparin in case of surgical intervention; continue with heparin for now, as surgical debridement may be scheduled during this inpatient visit pending Dr. Joel' availability. 5) Continue with SHAUN bandages to BLE for compression. Patient verbalized understanding and agreement with the treatment plan as stated. All of his questions were answered to his satisfaction. Dr. Tapia, thank you for the consult! Time with Patient: Greater than 30
--- NOTE | 2024-10-26 16:31 | P.PN ---
Subjective Progress Note Date: 10/25/24 Principal diagnosis: Reason for follow-up is left lower extremity venous ulcer and cellulitis Patient is a 69-year-old male with a past medical history significant for DVT reflux hypertension COPD history of chronic venous stasis ulcer to left lower extremity with recent admission with cellulitis culture positive for Pseudomonas with the patient was on oral biotic in outpatient setting presented back to the hospital for worsening pain and has been in the hospital with cellulitis. On today's evaluation that is 10/25/2024, patient has been afebrile, patient is breathing comfortably and is currently on room air, patient denies having any chest pain and cough, patient denies nausea vomiting or diarrhea and no abdominal pain. The lower extremity slightly decreased in intensity. Patient white count is 9.86 Objective - Vital Signs Vital signs: Vital Signs Temp 97.9 F 10/25/24 07:10 Pulse 70 10/25/24 07:10 Resp 16 10/25/24 07:10 BP 151/69 10/25/24 07:10 Pulse Ox 98 10/25/24 07:10 FiO2 Intake & Output 10/24/24 10/25/24 10/25/24 18:59 06:59 18:59 Intake Total 240 Output Total 550 700 Balance 240 -550 -700 Weight 116.573 kg Intake: Oral 240 Output: Urine 550 700 Other: Voiding Method Toilet Urinal Urinal # Voids 1 - Exam GENERAL DESCRIPTION: An elderly male lying in bed in no distress RESPIRATORY SYSTEM: Unlabored breathing , decreased breath sounds at bases HEART: S1 S2 regular rate and rhythm , ABDOMEN: Soft , no tenderness EXTREMITIES: Left leg is currently dressed no drainage on the dressing - Labs CBC & Chem 7: 10/26/24 06:03 10/26/24 06:03 Labs: Abnormal Lab Results - Last 24 Hours (Table) 10/25/24 10/25/24 10/25/24 Range/Units 04:19 04:19 13:00 RBC 4.04 L 3.86 L (4.40-5.60) X 10*6/uL Hgb 12.2 L 12.0 L (13.0-17.0) g/dL Hct 39.2 L 36.8 L (39.6-50.0) % MCHC 31.1 L (32.0-37.0) g/dL RDW 15.7 H 15.2 H (11.5-14.5) % MPV 9.2 L 9.0 L (9.5-12.2) FL Carbon Dioxide 21.1 L (21.6-31.8) mmol/L BUN 27.2 H (9.0-27.0) mg/dL BUN/Creatinine Ratio 30.22 H (12.00-20.00) Ratio Assessment and Plan (1) Venous stasis ulcer of left thigh Current Visit: Yes Status: Acute Code(s): I83.021 - VARICOSE VEINS OF LEFT LOWER EXTREMITY WITH ULCER OF THIGH; L97.129 - NON-PRESSURE CHRONIC ULCER OF LEFT THIGH WITH UNSP SEVERITY SNOMED Code(s): 443035480 (2) Left leg cellulitis Current Visit: Yes Status: Acute Code(s): L03.116 - CELLULITIS OF LEFT LOWER LIMB SNOMED Code(s): 06895762262961985 Plan: 1patient presented to hospital increasing pain and swelling to the left lower extremity dissipated have history of left leg venous ulcer and second cellulitis with recent culture positive for Pseudomonas strep E. coli and Prevotella 2patient was seen by vascular surgery consult has been placed to the contract technician for possible debridement and deep culture 3patient to continue with a Zosyn 3.375 g every 8 hours while waiting for the workup to be completed Dictation was produced using [employer] dictation software. please excuse any gramm atical, word or spelling errors. Time with Patient: Less than 30
--- NOTE | 2024-10-26 16:33 | P.PN ---
Subjective Progress Note Date: 10/26/24 Principal diagnosis: Reason for follow-up is left lower extremity venous ulcer and cellulitis Patient is a 69-year-old male with a past medical history significant for DVT reflux hypertension COPD history of chronic venous stasis ulcer to left lower extremity with recent admission with cellulitis culture positive for Pseudomonas with the patient was on oral biotic in outpatient setting presented back to the hospital for worsening pain and has been in the hospital with cellulitis. On today's evaluation that is10/26/2024, Patient is afebrile this morning patient denies having any chest pain shortness of breath or cough, the patient is currently on room air, patient denies any abdominal pain no diarrhea no nausea no vomiting patient mention improvement in the pain to the left lower extremity no significant drainage. Patient white count 7.92, creatinine 0.7 left local cultures are pending Objective - Vital Signs Vital signs: Vital Signs Temp 98.1 F 10/26/24 13:40 Pulse 63 10/26/24 13:40 Resp 17 10/26/24 13:40 BP 143/79 10/26/24 13:40 Pulse Ox 95 10/26/24 13:40 FiO2 Intake & Output 10/25/24 10/26/24 10/26/24 18:59 06:59 18:59 Intake Total 472 239.267 480 Output Total 900 400 Balance -428 -160.733 480 Intake: Intake, IV Titration 239.267 Amount Heparin Sodium,Porcine/ 239.267 D5w 25,000 unit In Empty Bag 1 bag @ 15 UNIT/KG/HR 17.486 mls/hr IV . [id number] [facility] Rx#:[id number] Oral 472 480 Output: Urine 900 400 Other: Voiding Method Urinal Urinal Urinal # Voids 2 - Exam GENERAL DESCRIPTION: An elderly male lying in bed in no distress RESPIRATORY SYSTEM: Unlabored breathing , decreased breath sounds at bases HEART: S1 S2 regular rate and rhythm , ABDOMEN: Soft , no tenderness EXTREMITIES: Left leg wound base has showed improvement with no significant slough tissue - Labs CBC & Chem 7: 10/26/24 06:03 10/26/24 06:03 Labs: Abnormal Lab Results - Last 24 Hours (Table) 10/25/24 10/25/24 10/26/24 Range/Units 19:17 21:39 06:03 RBC 3.95 L (4.40-5.60) X 10*6/uL Hgb 11.9 L (13.0-17.0) g/dL Hct 38.1 L (39.6-50.0) % MCHC 31.2 L (32.0-37.0) g/dL RDW 15.1 H (11.5-14.5) % MPV 9.2 L (9.5-12.2) FL Eosinophils # 0.45 H (0.04-0.35) X 10*3/uL APTT 34.9 H 41.0 H (22.0-30.0) sec BUN/Creatinine Ratio (12.00-20.00) Ratio 10/26/24 10/26/24 Range/Units 06:03 06:03 RBC (4.40-5.60) X 10*6/uL Hgb (13.0-17.0) g/dL Hct (39.6-50.0) % MCHC (32.0-37.0) g/dL RDW (11.5-14.5) % MPV (9.5-12.2) FL Eosinophils # (0.04-0.35) X 10*3/uL APTT 56.8 H (22.0-30.0) sec BUN/Creatinine Ratio 28.14 H (12.00-20.00) Ratio Microbiology - Last 24 Hours (Table) 10/25/24 16:55 Gram Stain - Preliminary Ankle - Left 10/24/24 08:40 Blood Culture - Preliminary Blood Assessment and Plan (1) Venous stasis ulcer of left thigh Current Visit: Yes Status: Acute Code(s): I83.021 - VARICOSE VEINS OF LEFT LOWER EXTREMITY WITH ULCER OF THIGH; L97.129 - NON-PRESSURE CHRONIC ULCER OF LEFT THIGH WITH UNSP SEVERITY SNOMED Code(s): 901373277 (2) Left leg cellulitis Current Visit: Yes Status: Acute Code(s): L03.116 - CELLULITIS OF LEFT LOWER LIMB SNOMED Code(s): 29423862887727652 Plan: 1patient presented to hospital increasing pain and swelling to the left lower extremity dissipated have history of left leg venous ulcer and second cellulitis with recent culture positive for Pseudomonas strep E. coli and Prevotella 2patient was seen by vascular surgery consult has been placed to the risk control officer care discussed with the risk control officer overall improvement with the [facility] no plan for surgical debridement 3patient to continue with a Zosyn 3.375 g every 8 hours with the plan to finish therapy with oral antibiotics Dictation was produced using [employer] dictation software. please excuse any grammatical, word or spelling errors. Time with Patient: Less than 30
[2024-10-27 07:56] LABS: Basophils # (A) 0.05 X 10*3/uL (0.00-0.10); Basophils % (A) 0.7 %; Eosinophils # (A) 0.41 X 10*3/uL (0.04-0.35); Eosinophils % (A) 5.4 %; HCT 36.2 % (39.6-50.0); HGB 11.6 g/dL (13.0-17.0); Immature Grans, Automated 0.30 %; Lymphocytes # (A) 3.29 X 10*3/uL (0.90-5.00); Lymphocytes % (A) 43.5 %; MCH 30.0 pg (27.0-32.0); MCHC 32.0 g/dL (32.0-37.0); MCV 93.5 FL (80.0-97.0); Monocytes # (A) 0.55 X 10*3/uL (0.20-1.00); Monocytes % (A) 7.3 %; NRBC Per 100 WBC 0 X 10*3/uL (0.00-0.01); Neutrophils # (A) 3.25 X 10*3/uL (1.80-7.70); Neutrophils % (A) 42.8 %; Platelet Count 273 X 10*3/uL (140-440); RBC 3.87 X 10*6/uL (4.40-5.60); RDW 14.9 % (11.5-14.5); WBC 7.57 X 10*3/uL (4.50-10.00)
[2024-10-27 11:01] LABS: Anion Gap 12.40 mmol/L (4.00-12.00); BUN/Creat Ratio 25.86 Ratio (12.00-20.00); Blood Urea Nitrogen 18.1 mg/dL (9.0-27.0); Calcium 9.0 mg/dL (8.7-10.3); Carbon Dioxide 22.6 mmol/L (21.6-31.8); Chloride 103 mmol/L (96-109); Glucose 99 mg/dL (70-110); Potassium 4.0 mmol/L (3.5-5.5); Sodium 138 mmol/L (135-145)
--- NOTE | 2024-10-27 12:15 | PN ---
PROGRESS NOTE DATE OF SERVICE: 10/27/2024 SUBJECTIVE: This 69-year-old gentleman admitted with leg cellulitis, is being followed by Podiatry. Cultures are negative. OBJECTIVE: VITAL SIGNS: Pulse is 65, blood pressure 147/80, and respirations 16. CHEST: Clear to auscultation. CARDIOVASCULAR: S1, S2. ABDOMEN: Soft. LEGS: Cellulitis present, left more than right. LABORATORY DATA: Reviewed. ASSESSMENT: 1. Severe cellulitis of left leg with previous polymicrobial keena. 2. History of bilateral leg cellulitis. 3. History of deep venous thrombosis of the left leg. 4. History of factor V Leiden deficiency. 5. History of gastrointestinal bleeding. 6. Hypertension. 7. History of methicillin-resistant Staphylococcus aureus. RECOMMENDATIONS: Recommend to continue current management and continue symptomatic treatment. Continue with the antibiotics. Otherwise, closely follow with Podiatry, possible intervention and debridement. Guarded prognosis. Further recommendations to follow. MMODL / IJN: [id number] /
--- NOTE | 2024-10-27 15:27 | P.PN ---
Subjective Progress Note Date: 10/27/24 Principal diagnosis: Reason for follow-up is left lower extremity venous ulcer and cellulitis Patient is a 69-year-old male with a past medical history significant for DVT reflux hypertension COPD history of chronic venous stasis ulcer to left lower extremity with recent admission with cellulitis culture positive for Pseudomonas with the patient was on oral biotic in outpatient setting presented back to the hospital for worsening pain and has been in the hospital with cellulitis. On today's evaluation that is 10/27/2024,the patient denies any fever or any chills, patient is breathing comfortably on room air, the patient denies chest pain shortness of breath and no significant cough, patient denies abdominal pain, no nausea vomiting or diarrhea. Patient mention improvement in the lower extremity pain. The patient white count 7.57, creatinine 0.7 blood local cultures currently pending Objective - Vital Signs Vital signs: Vital Signs Temp 98.0 F 10/27/24 07:05 Pulse 65 10/27/24 07:05 Resp 16 10/27/24 08:52 BP 147/80 10/27/24 07:05 Pulse Ox 95 10/27/24 07:05 FiO2 Intake & Output 10/26/24 10/27/24 10/27/24 18:59 06:59 18:59 Intake Total 480 250 118 Output Total 850 Balance 480 -600 118 Intake: Intake, IV Titration 250 Amount Heparin Sodium,Porcine/ 250 D5w 25,000 unit In Empty Bag 1 bag @ 15 UNIT/KG/HR 17.486 mls/hr IV . [id number] [facility] Rx#:[id number] Oral 480 118 Output: Urine 850 Other: Voiding Method Urinal Urinal Urinal # Bowel Movements 0 - Exam GENERAL DESCRIPTION: An elderly male lying in bed in no distress RESPIRATORY SYSTEM: Unlabored breathing , decreased breath sounds at bases HEART: S1 S2 regular rate and rhythm , ABDOMEN: Soft , no tenderness EXTREMITIES: Left leg wound base has showed improvement with no significant slough tissue - Labs CBC & Chem 7: 10/27/24 05:44 10/27/24 05:44 Labs: Abnormal Lab Results - Last 24 Hours (Table) 10/27/24 10/27/24 10/27/24 Range/Units 05:44 05:44 05:44 RBC 3.87 L (4.40-5.60) X 10*6/uL Hgb 11.6 L (13.0-17.0) g/dL Hct 36.2 L (39.6-50.0) % RDW 14.9 H (11.5-14.5) % MPV 9.4 L (9.5-12.2) FL Eosinophils # 0.41 H (0.04-0.35) X 10*3/uL APTT 66.4 H (22.0-30.0) sec Anion Gap 12.40 H (4.00-12.00) mmol/L BUN/Creatinine Ratio 25.86 H (12.00-20.00) Ratio Microbiology - Last 24 Hours (Table) 10/25/24 16:55 Gram Stain - Preliminary Ankle - Left Wound Culture - Preliminary 10/24/24 08:40 Blood Culture - Preliminary Blood Assessment and Plan (1) Venous stasis ulcer of left thigh Current Visit: Yes Status: Acute Code(s): I83.021 - VARICOSE VEINS OF LEFT LOWER EXTREMITY WITH ULCER OF THIGH; L97.129 - NON-PRESSURE CHRONIC ULCER OF LEFT THIGH WITH UNSP SEVERITY SNOMED Code(s): 979435094 (2) Left leg cellulitis Current Visit: Yes Status: Acute Code(s): L03.116 - CELLULITIS OF LEFT LOWER LIMB SNOMED Code(s): 69939169402539490 Plan: 1patient presented to hospital increasing pain and swelling to the left lower extremity dissipated have history of left leg venous ulcer and second cellulitis with recent culture positive for Pseudomonas strep E. coli and Prevotella 2patient was seen by vascular surgery consult has been placed to the group fitness department head care discussed with the group fitness department head overall improvement with the [facility] no plan for surgical debridement 3patient mentioned improvement in his symptoms, to continue with a Zosyn 3.375 g every 8 hours while waiting for recent culture to finalize Dictation was produced using [employer] dictation software. please excuse any grammatical, word or spelling errors. Time with Patient: Less than 30
[2024-10-28] MEDS: GABAPENTIN 400 MG CAP PO PRN (04:32)
[2024-10-28 15:03] LABS: INR 1.1 (<1.2); Prothrombin Time 11.9 sec (10.0-12.5)
[2024-10-28] MEDS: WARFARIN 5 MG TAB PO ONE (18:06)
--- NOTE | 2024-10-29 02:33 | PN ---
PROGRESS NOTE DATE OF SERVICE: 10/28/2024 SUBJECTIVE: This is a 69-year-old gentleman who was admitted with severe cellulitis of the left leg with previous polymicrobial keena. He is being closely monitored. No chest pain. No palpitation. Surgery is not planning any intervention at this time. OBJECTIVE: VITAL SIGNS: On exam, pulse is 59, blood pressure 150/77, respirations 16. CHEST: Clear to auscultation. CARDIOVASCULAR: S1, S2. ABDOMEN: Soft. LEGS: Cellulitis. LABS: Reviewed. Cultures are negative so far. ASSESSMENT: 1. Severe cellulitis of the left leg with previous polymicrobial keena with failure of outpatient treatment. 2. History of bilateral leg cellulitis. 3. History of DVT of the left leg. 4. History of factor V Leiden deficiency. 5. History of GI bleed. 6. Hypertension. 7. History of MRSA. RECOMMENDATIONS: I recommend to continue current management and symptomatic treatment. Otherwise, closely follow with the Cardiac Surgery, Infectious Disease. Guarded prognosis. Further recommendations to follow. Cultures are negative so far. MMODL / IJN: [id number] /
[2024-10-29 07:31] VITALS: BMI 39.0
[2024-10-29 07:31] LABS: INR 1.0 (<1.2); Prothrombin Time 11.2 sec (10.0-12.5)
[2024-10-29 15:47] VITALS: BP 149/65; PULSE 63; RESP 18; TEMP 98.4
[2024-10-29] MEDS ORDERED: WARFARIN 5 MG TAB PO ONE (18:00)
--- NOTE | 2024-10-29 18:26 | P.PN ---
Subjective Progress Note Date: 10/28/24 Principal diagnosis: Reason for follow-up is left lower extremity venous ulcer and cellulitis Patient is a 69-year-old male with a past medical history significant for DVT reflux hypertension COPD history of chronic venous stasis ulcer to left lower extremity with recent admission with cellulitis culture positive for Pseudomonas with the patient was on oral biotic in outpatient setting presented back to the hospital for worsening pain and has been in the hospital with cellulitis. On today's evaluation that is 10/28/2024,the patient remains to be afebrile, patient is on room air not requiring supplemental oxygen and mentioned breathing comfortably with no chest pain or cough.Patient denies having any nausea or vomiting, no abdominal pain and no diarrhea has been reported, pain to the lower extremity has decreased in intensity. Patient did have INR of 1.1 no CBC was done today cultures currently pending Objective - Vital Signs Vital signs: Vital Signs Temp 98.2 F 10/28/24 07:24 Pulse 59 L 10/28/24 07:24 Resp 16 10/28/24 08:52 BP 155/76 10/28/24 07:24 Pulse Ox 95 10/28/24 07:24 FiO2 Intake & Output 10/27/24 10/28/24 10/28/24 18:59 06:59 18:59 Intake Total 598 250 480 Output Total 580 250 Balance 18 0 480 Intake: Intake, IV Titration 250 Amount Heparin Sodium,Porcine/ 250 D5w 25,000 unit In Empty Bag 1 bag @ 15 UNIT/KG/HR 17.486 mls/hr IV . [id number] [facility] Rx#:[id number] Oral 598 480 Output: Urine 580 250 Other: Voiding Method Urinal Urinal Urinal - Exam GENERAL DESCRIPTION: An elderly male lying in bed in no distress RESPIRATORY SYSTEM: Unlabored breathing , decreased breath sounds at bases HEART: S1 S2 regular rate and rhythm , ABDOMEN: Soft , no tenderness EXTREMITIES: Left leg wound base has showed improvement with no significant slough tissue - Labs CBC & Chem 7: 10/27/24 05:44 10/27/24 05:44 Labs: Abnormal Lab Results - Last 24 Hours (Table) 10/28/24 Range/Units 05:48 APTT 63.9 H (22.0-30.0) sec Microbiology - Last 24 Hours (Table) 10/25/24 16:55 Gram Stain - Final Ankle - Left Wound Culture - Final 10/25/24 16:55 Anaerobic Culture - Preliminary Ankle - Left 10/24/24 08:40 Blood Culture - Preliminary Blood Assessment and Plan (1) Venous stasis ulcer of left thigh Status: Acute Code(s): I83.021 - VARICOSE VEINS OF LEFT LOWER EXTREMITY WITH ULCER OF THIGH; L97.129 - NON-PRESSURE CHRONIC ULCER OF LEFT THIGH WITH UNSP SEVERITY SNOMED Code(s): 439529028 (2) Left leg cellulitis Status: Acute Code(s): L03.116 - CELLULITIS OF LEFT LOWER LIMB SNOMED Code(s): 28116883006574234 Plan: 1patient presented to hospital increasing pain and swelling to the left lower extremity dissipated have history of left leg venous ulcer and second cellulitis with recent culture positive for Pseudomonas strep E. coli and Prevotella 2patient was seen by vascular surgery consult has been placed to the trailer assembler care discussed with the trailer assembler [facility] no plan for surgical debridement 3patient mentioned improvement in his symptoms, patient to continue with a Zosyn 3.375 g every 8 hours while waiting for recent culture to finalize to determine discharge antibiotics Dictation was produced using [employer] dictation software. please excuse any grammatical, word or spelling errors. Time with Patient: Less than 30
--- NOTE | 2024-10-29 18:27 | P.PN ---
Subjective Progress Note Date: 10/29/24 Principal diagnosis: Reason for follow-up is left lower extremity venous ulcer and cellulitis Patient is a 69-year-old male with a past medical history significant for DVT reflux hypertension COPD history of chronic venous stasis ulcer to left lower extremity with recent admission with cellulitis culture positive for Pseudomonas with the patient was on oral biotic in outpatient setting presented back to the hospital for worsening pain and has been in the hospital with cellulitis. On today's evaluation that is 10/29/2024, the patient continues to be afebrile, the patient is on room air and breathing comfortably, the Pt denies having any chest pain or cough, the patient denies having any abdominal pain no vomiting or any diarrhea pain to the lower extremity has decreased in intensity Blood and local culture have been negative so far Objective - Vital Signs Vital signs: Vital Signs Temp 98.0 F 10/29/24 07:41 Pulse 66 10/29/24 07:41 Resp 17 10/29/24 07:41 BP 153/71 10/29/24 07:41 Pulse Ox 96 10/29/24 07:41 FiO2 Intake & Output 10/28/24 10/29/24 10/29/24 18:59 06:59 18:59 Intake Total 1310 240 Output Total 900 680 Balance 410 -680 240 Weight 116.573 kg Intake: Intake, IV Titration 250 Amount Heparin Sodium,Porcine/ 250 D5w 25,000 unit In Empty Bag 1 bag @ 15 UNIT/KG/HR 17.486 mls/hr IV . [id number] [facility] Rx#:[id number] Oral 1060 240 Output: Urine 900 680 Other: Voiding Method Urinal Urinal Toilet - Exam GENERAL DESCRIPTION: An elderly male lying in bed in no distress RESPIRATORY SYSTEM: Unlabored breathing , decreased breath sounds at bases HEART: S1 S2 regular rate and rhythm , ABDOMEN: Soft , no tenderness EXTREMITIES: Left leg wound currently dressed no drainage - Labs CBC & Chem 7: 10/27/24 05:44 10/27/24 05:44 Labs: Microbiology - Last 24 Hours (Table) 10/25/24 16:55 Gram Stain - Final Ankle - Left Wound Culture - Final Assessment and Plan (1) Venous stasis ulcer of left thigh Status: Acute Code(s): I83.021 - VARICOSE VEINS OF LEFT LOWER EXTREMITY WITH ULCER OF THIGH; L97.129 - NON-PRESSURE CHRONIC ULCER OF LEFT THIGH WITH UNSP SEVERITY SNOMED Code(s): 239717502 (2) Left leg cellulitis Status: Acute Code(s): L03.116 - CELLULITIS OF LEFT LOWER LIMB SNOMED Code(s): 63002673651091133 Plan: 1patient presented to hospital increasing pain and swelling to the left lower extremity dissipated have history of left leg venous ulcer and second cellulitis with recent culture positive for Pseudomonas strep E. coli and Prevotella 2patient was seen by vascular surgery consult has been placed to the client services director care discussed with the client services director overall improvement with the [facility] no plan for surgical debridement 3patient did have improvement in his symptoms, culture have been negative consider short course of oral doxycycline on discharge discussed with ADVERTISING SUPERVISOR for admitting team Dictation was produced using [employer] dictation software. please excuse any grammatical, word or spelling errors. Time with Patient: Less than 30
--- NOTE | 2024-10-31 15:16 | P.DS ---
Providers Date of admission: 10/24/24 08:29 Expected date of discharge: 10/29/24 Attending physician: Caren Tapia Consults: 10/24/24 11:27 Consult Physician Urgent Consulting Provider: Elena Jain Consult Reason/Comments: cellulitis Do you want consulting provider notified?: Yes 10/24/24 14:37 Consult Physician Routine Consulting Provider: Jameel Johnson Consult Reason/Comments: dvt history Do you want consulting provider notified?: Yes Consult Physician Routine Consulting Provider: Elena Jain Consult Reason/Comments: sepsis Do you want consulting provider notified?: Yes 10/25/24 09:00 Consult Physician Routine Consulting Provider: Kinjal Mcclain Consult Reason/Comments: Left lower extremity wounds, known to you Do you want consulting provider notified?: Yes Primary care physician: Alvin Emerson Hospital Course: Final diagnosis Severe cellulitis of the left leg with previous polymicrobial keena with failure of outpatient treatment History of bilateral leg cellulitis History of DVT of the left leg History of factor V Leyden deficiency History of GI bleed Hypertension Obesity with a BMI of 39.1 History of MRSA GI prophylaxis DVT prophylaxis Full code Discharge disposition Patient is being discharged in a stable condition with guarded prognosis to home with home care. Patient will follow-up with Dr. Emerson in the outpatient setting upon discharge. Patient is to continue with current medications with outpatient follow-up with infectious disease as well as podiatry as scheduled. Total time taken is greater than 35 minutes. Hospital course This is a 69-year-old male who was recently admitted with bilateral lower extremity swelling and edema with significant cellulitis noted on the left with no improvements and was recently hospitalized for bilateral cellulitis. Patient evaluated by podiatry maintained on Medihoney and Tamir wraps with elevating lower extremities. Patient continued on antibiotics with infectious disease following and cultures remain negative. Patient will continue on oral doxycycline twice daily for 1 week recommending close outpatient follow-up with warehouse order puller as well as hematology and infectious disease along with primary care provider. Please refer to other consultation notes for further HPI. Currently no reports of chest pain, shortness of breath, or palpitations. Patient is afebrile. No reports of nausea or vomiting and patient is tolerating diet. Patient will be discharged home today. Guarded prognosis and high risk for readmissions given significant wounds and comorbidities. Patient is to resume Eliquis on discharge Physical exam: Gen: This is a 69-year-old male who is awake, alert and oriented x 3, well- developed, elderly appearing, chronically ill-appearing, obese HEENT: Head is atraumatic, normocephalic. Pupils equal, round. Sclerae is anicteric. NECK: Supple. No JVD. No lymphadenopathy. No thyromegaly. LUNGS: Diminished breath sounds bilaterally otherwise clear to auscultation. No wheezes or rhonchi. No intercostal retractions. HEART: S1, S2 are muffled ABDOMEN: Soft. Obese bowel sounds are present. No masses. No tenderness. EXTREMITIES: No pedal edema. No calf tenderness. Bilateral lower extremity swelling with extensive wounds and crusting noted of bilateral lower shins with improvements in redness on the left NEUROLOGICAL: Patient is awake, alert and oriented x3. Cranial nerves 2 through 12 are grossly intact. Please refer to medication reconciliation sheet for a list of medications. The impression and plan of care has been dictated by Ami Rivero, Nurse Practitioner as directed. Dr. Pan MD I have performed a history and examination and MDM of this patient, discussed the same with the dictator, and agree with the dictator's assessment and plan as written ,documented as a scribe. Based on total visit time, I have performed more than 50% of the visit. Patient Condition at Discharge: Stable Plan - Discharge Summary Discharge Rx Participant: No New Discharge Prescriptions: Continue atenoloL 100 mg PO DAILY HYDROcodone/APAP 10-325MG [Orefield 10-325] 1 tab PO 5XD Gabapentin [Neurontin] 800 mg PO BID PRN PRN Reason: Pain Ergocalciferol (Vitamin D2) [Drisdol (GEQ) 1,250 MCG (50,000 IU)] 1,250 mcg PO MO Discontinued Ciprofloxacin HCl [Cipro] 500 mg PO Q12HR 10 Days #20 tab Cephalexin [Keflex] 500 mg PO Q8HR 10 Days #30 cap Apixaban [Eliquis Starter Pack (for VTE)] See Taper PO DIRECTED Discharge Medication List atenoloL 100 mg PO DAILY 01/19/15 [History] HYDROcodone/APAP 10-325MG [Orefield 10-325] 1 tab PO 5XD 08/21/15 [History] Ergocalciferol (Vitamin D2) [Drisdol (GEQ) 1,250 MCG (50,000 IU)] 1,250 mcg PO MO 10/08/24 [History] Gabapentin [Neurontin] 800 mg PO BID PRN 10/08/24 [History] Follow up Appointment(s)/Referral(s): Alvin Emerson MD [Primary Care Provider] - 1-2 days [facility] [NON-STAFF] - As Needed Otilio Joel DPM [STAFF PHYSICIAN] - 1 Week Activity/Diet/Wound Care/Special Instructions: Discharge pending antibiotics recommendations from Dr. Jack Follow-up primary care provider on discharge Follow-up with podiatry outpatient Continue with local wound care as instructed Elevate lower extremities while at rest Discharge Disposition: HOME WITH HOME HEALTH SERVICES
== END 2024-10-29 16:10 | disposition home health service (06) | DRG 300 ==
LOC: EC 07:39 → 6NMEDSUR 08:28 → OBSVTOIN 08:29 → 6NMEDSUR 14:16
PROVIDERS: ADMIT Hospitalist; ATTEND Hospitalist
DX: I83.021 Varicose veins of left lower extremity with ulcer of thigh (principal); D68.51 Activated protein C resistance; I96 Gangrene, not elsewhere classified; J44.9 Chronic obstructive pulmonary disease, unspecified; I10 Essential (primary) hypertension; Z68.39 Body mass index [BMI] 39.0-39.9, adult; L97.129 Non-pressure chronic ulcer of left thigh with unspecified severity; I82.402 Acute embolism and thrombosis of unspecified deep veins of left lower extremity; L97.822 Non-pressure chronic ulcer of other part of left lower leg with fat layer exposed; L03.115 Cellulitis of right lower limb; L03.116 Cellulitis of left lower limb; I83.028 Varicose veins of left lower extremity with ulcer other part of lower leg; I83.023 Varicose veins of left lower extremity with ulcer of ankle; L30.9 Dermatitis, unspecified; I87.2 Venous insufficiency (chronic) (peripheral); I87.8 Other specified disorders of veins; E66.9 Obesity, unspecified; Z86.14 Personal history of Methicillin resistant Staphylococcus aureus infection; Z86.718 Personal history of other venous thrombosis and embolism; Z88.6 Allergy status to analgesic agent; Z88.5 Allergy status to narcotic agent; Z91.09 Other allergy status, other than to drugs and biological substances; Z87.891 Personal history of nicotine dependence; Z79.01 Long term (current) use of anticoagulants; Z79.899 Other long term (current) drug therapy
CPT/HCPCS: 36415; 80048; 80053; 83605; 85025; 85610; 85730; 87040; 87070; 87075; 87205; 93005; 93922; 96365; 96366; 96368; 96375; 96376; 99285